=== PATIENT | female | born 1955 | race Caucasian/White ===

== ENCOUNTER 2020-01-08 11:38 | Inpatient (IN) | payer OTHER ==
[~2020-01-08] VITALS: Ht 157.5 cm; Wt 119.3 kg
[2020-01-08] MEDS ORDERED: Z GUARD REMEDY PASTE 57 GM TUBE TOP PRN (13:15)
[2020-01-08] MEDS ORDERED: DOCU100C36 PO (15:09)
[2020-01-08] MEDS ORDERED: OXYB5TAB16 PO (15:09)
[2020-01-08] MEDS ORDERED: PREG75CA PO (15:09)
[2020-01-08] MEDS ORDERED: BACL10TA PO (15:09)
[2020-01-08] MEDS ORDERED: LABE200T5 PO (15:09)
[2020-01-08] MEDS ORDERED: INSU100V7 SQ (15:09)
[2020-01-08] MEDS ORDERED: ALBU2.5V13 NEB (15:09)
[2020-01-08] MEDS ORDERED: ENOX40DI SQ (15:09)
[2020-01-08] MEDS ORDERED: ASPI81TA31 PO (15:09)
[2020-01-08] MEDS ORDERED: PARO10TA86 PO (15:09)
[2020-01-08] MEDS ORDERED: VANC1FRO2 IV (15:09)
[2020-01-08] MEDS ORDERED: LIDO30AD10 TD (15:09)
[2020-01-08] MEDS ORDERED: LINA5TAB PO (15:09)
[2020-01-08] MEDS ORDERED: CLOP75TA15 PO (15:09)
[2020-01-08] MEDS ORDERED: ATOR40TA PO (15:09)
[2020-01-08] MEDS ORDERED: IPRA0.2S6 NEB (15:09)
[2020-01-08] MEDS ORDERED: HYDR2TAB4 PO (15:09)
[2020-01-08] MEDS ORDERED: GLIP5TAB13 PO (15:09)
[2020-01-08] MEDS ORDERED: PANT40TA49 PO (15:09)
[2020-01-08] MEDS ORDERED: LOSA50TA39 PO (15:09)
[2020-01-08] MEDS ORDERED: HYDR-894 PO (15:09)
[2020-01-08] MEDS ORDERED: FURO40TA5 PO (15:09)
[2020-01-08] MEDS ORDERED: HYDR-4077 PO (15:09)
[2020-01-08] MEDS ORDERED: IPRA0.2S48 NEB (15:09)
[2020-01-08 15:17] VITALS: BP 143/42
[2020-01-08] MEDS ORDERED: INSU100V28 SUBCUT (15:17)
[2020-01-08] MEDS ORDERED: CLOT15CR27 TP (15:17)
[2020-01-08] MEDS ORDERED: TRIA80OI TP (15:17)
[2020-01-08] MEDS ORDERED: MUPI22OI2 (15:17)
[2020-01-08] MEDS ORDERED: DEXTROSE 50% 50 ML DISP.SYRIN IV PRN ×2 (16:15→21:00)
[2020-01-08] MEDS: BLOOD SUGAR DIAGNOSTIC 1 EACH STRIP VI SCH ×3 (16:59→21:00)
[2020-01-08] MEDS: INSULIN REGULAR, HUMAN 300 UNIT/3 ML VIAL SQ PRN ×2 (17:19→20:50)
[2020-01-08 19:50] VITALS: BP 122/56
[2020-01-08] MEDS: HYDROMORPHONE HCL 2 MG TABLET PO PRN (20:44)
[2020-01-08] MEDS ORDERED: ATORVASTATIN 40 MG TABLET PO SCH (21:00)
[2020-01-08] MEDS ORDERED: VANCOMYCIN IV 2,000 MG in IV DEXTROSE 5% 500 ML IV ONE (21:30)
[2020-01-08] MEDS: PANTOPRAZOLE SODIUM 40 MG TABLET.DR PO SCH (21:40)
[2020-01-08] MEDS: BACLOFEN 10 MG TABLET PO SCH (22:06)
[2020-01-08] MEDS: PREGABALIN 25 MG CAPSULE PO SCH (22:06)
[2020-01-08] MEDS ORDERED: MUPIROCIN 2% OINT 22 GM TUBE ONE (22:43)
[2020-01-08] MEDS ORDERED: INSULIN GLARGINE,HUM 300 UNITS/3 ML CARTRIDGE SQ ONE (22:43)
[2020-01-08] MEDS ORDERED: VANCOMYCIN 1000 MG VIAL ONE (22:45)
[2020-01-08] MEDS: MUPIROCIN 2% OINT 22 GM TUBE NS SCH (23:24)
[2020-01-08] MEDS: INSULIN GLARGINE,HUM 300 UNITS/3 ML CARTRIDGE SQ SCH (23:25)
[2020-01-08] MEDS ORDERED: MIRALAX 17 GM POWD.PACK PO ONE (23:30)
[2020-01-08] MEDS: hydrALAZINE HCL 25 MG TABLET PO PRN (23:45)
[2020-01-09] MEDS ORDERED: methylPREDNISolone SOD SUCC 40 MG/ML VIAL ONE (00:16)
[2020-01-09] MEDS ORDERED: MIRALAX 17 GM POWD.PACK ONE (00:16)
[2020-01-09] MEDS: HYDROCORTISONE SOD SUCCINATE 100 MG/2 ML VIAL IV SCH ×2 (00:19→08:21)
[2020-01-09] MEDS: HYDROMORPHONE HCL 2 MG TABLET PO PRN ×3 (03:09→16:41)
[2020-01-09] MEDS: ALBUTEROL SULFATE 2.5 MG/ 0.5 ML NEBU NEB PRN ×5 (03:22→23:44)
[2020-01-09] MEDS: IPRATROPIUM BROMIDE 0.5 MG/2.5 ML NEBU NEB PRN ×5 (03:22→23:44)
[2020-01-09 04:45] VITALS: BP 152/47
[2020-01-09] MEDS: glipiZIDE 5 MG TABLET PO SCH ×2 (05:44→16:26)
[2020-01-09] MEDS: BACLOFEN 10 MG TABLET PO SCH ×3 (05:44→21:07)
[2020-01-09] MEDS: LABETALOL HCL 200 MG TABLET PO SCH ×3 (05:45→21:10)
[2020-01-09] MEDS: BLOOD SUGAR DIAGNOSTIC 1 EACH STRIP VI SCH ×4 (05:55→20:48)
[2020-01-09 06:27] LABS: BASOPHILS % (AUTO) 0.4 % (0.0-2.0); HEMATOCRIT 31.9 % (31.2-41.9); HEMOGLOBIN 10.8 g/dL (10.9-14.3); LYMPHOCYTES # (AUTO) 0.9 K/uL (20.0-40.0); LYMPHOCYTES % (AUTO) 9.6 % (20.5-51.5); MEAN CORPUSCULAR HGB CONC 34 g/dL (32.3-35.6); MEAN CORPUSCULAR VOLUME 79.6 fL (75.5-95.3); MONOCYTES # (AUTO) 0.5 K/uL (2.0-10.0); MONOCYTES % (AUTO) 5.7 % (0.0-11.0); NEUTROPHILS % (AUTO) 84.3 % (38.5-71.5); PLATELET COUNT (AUTO) 340 K/uL (179-408); RED BLOOD CELL COUNT(AUTO) 4.01 MIL/uL (3.63-4.92); WHITE BLOOD COUNT (AUTO) 9.5 K/uL (3.8-11.8)
[2020-01-09 06:53] LABS: THYROID STIMULATING HORMONE 0.206 mIU/mL (0.358-3.740)
[2020-01-09 07:18] LABS: BILIRUBIN,TOTAL 0.8 mg/dL (0.2-1.0); CREATININE 0.9 mg/dL (0.6-1.3); MAGNESIUM 2.7 mg/dL (1.8-2.4); PHOSPHOROUS 2.9 mg/dL (2.5-4.9); POTASSIUM 4.5 mmol/L (3.5-5.1); TOTAL PROTEIN, SERUM 6.8 g/dL (6.4-8.2)
[2020-01-09] MEDS: INSULIN REGULAR, HUMAN 300 UNIT/3 ML VIAL SQ PRN ×4 (07:51→20:30)
[2020-01-09] MEDS: OXYBUTYNIN CHLORIDE 5 MG TABLET PO SCH ×3 (08:22→16:26)
[2020-01-09] MEDS: DOCUSATE SODIUM 100 MG CAPSULE PO SCH ×2 (08:22→16:26)
[2020-01-09] MEDS: ASPIRIN EC 81 MG TABLET.DR PO SCH (08:22)
[2020-01-09] MEDS: LOSARTAN POTASSIUM 50 MG TABLET PO SCH (08:22)
[2020-01-09] MEDS: CLOPIDOGREL 75 MG TABLET PO SCH (08:23)
[2020-01-09] MEDS: hydrALAZINE HCL 50 MG TABLET PO SCH ×2 (08:23→16:27)
[2020-01-09 08:24] VITALS: BP 163/56
[2020-01-09] MEDS: LIDOCAINE 5% PATCH TD SCH (08:24)
[2020-01-09] MEDS: PAROXETINE HCL 10 MG TABLET PO SCH (08:24)
[2020-01-09] MEDS: ENOXAPARIN SODIUM 40 MG/0.4 ML DISP.SYRIN SQ SCH (08:25)
[2020-01-09] MEDS ORDERED: LABETALOL HCL 200 MG TABLET PO SCH (09:00)
[2020-01-09] MEDS ORDERED: CLOTRIMAZOLE 1% CREAM 30 GM TUBE TP SCH (09:00)
[2020-01-09] MEDS ORDERED: FUROSEMIDE 40 MG TABLET PO SCH (09:00)
[2020-01-09] MEDS: PREGABALIN 25 MG CAPSULE PO SCH ×3 (09:19→21:07)
[2020-01-09] MEDS: MUPIROCIN 2% OINT 22 GM TUBE NS SCH ×2 (09:51→20:22)
[2020-01-09] MEDS: TRIAMCINOLONE ACET 0.025% OINT 15 GM TUBE TP SCH (09:51)
[2020-01-09] MEDS: MIRALAX 17 GM POWD.PACK PO PRN (13:32)
[2020-01-09] MEDS: ACETAMINOPHEN 325 MG TABLET PO PRN (13:32)
[2020-01-09] MEDS: VANCOMYCIN IV 1,500 MG in IV DEXTROSE 5% 500 ML IV SCH (15:11)
[2020-01-09 16:01] VITALS: BP 153/58
[2020-01-09] MEDS: CLOTRIMAZOLE 1% CREAM 30 GM TUBE TP SCH (16:28)
[2020-01-09 16:30] LABS: *BILIRUBIN,URIN NEGATIVE (NEGATIVE); *CLARITY,URINE CLEAR (CLEAR); *COLOR,URINE YELLOW (YELLOW); *KETONES,URINE NEGATIVE (NEGATIVE); *UROBILINOGEN,URINE 0.2 E.U./dl (NORMAL); LEUKOCYTE ESTERASE ,URINE NEGATIVE (NEGATIVE); NITRITE, URINE NEGATIVE (NEGATIVE); PH,URINE 6.5 (5.0-8.0)
[2020-01-09 16:31] LABS: *CREATININE,URINE 27.3 mg/dL (30-125); *URINE TOTAL PROTEIN RANDOM < 6.0 mg/dL (<150/24HR)
[2020-01-09 16:34] LABS: UGLUCOSE 2+ (NEGATIVE)
[2020-01-09 16:35] LABS: *BLOOD, URINE TRACE LYSED (NEGATIVE)
[2020-01-09 18:45] LABS: BACTERIA,URINE NONE SEEN /HPF (NONE SEEN); SQUAMOUS EPITHELIAL CELL,UR FEW /HPF (NONE SEEN); WBC,URINE 0-3 /HPF (0-3); YEAST,URINE BUDDING YEAST /HPF (NONE SEEN)
[2020-01-09] MEDS ORDERED: ALBUTEROL SULFATE 2.5 MG/ 0.5 ML NEBU NEB SCH (19:30)
[2020-01-09 20:16] VITALS: BP 138/50
[2020-01-09] MEDS: methylPREDNISolone SOD SUCC 40 MG/ML VIAL IV SCH (20:16)
[2020-01-09] MEDS: ATORVASTATIN 40 MG TABLET PO SCH (20:20)
[2020-01-09] MEDS: PANTOPRAZOLE SODIUM 40 MG TABLET.DR PO SCH (20:21)
[2020-01-09] MEDS: INSULIN GLARGINE,HUM 300 UNITS/3 ML CARTRIDGE SQ SCH (20:33)
[2020-01-09] MEDS ORDERED: ATORVASTATIN 10 MG TABLET PO SCH (21:00)
[2020-01-10] MEDS: HYDROMORPHONE HCL 2 MG TABLET PO PRN ×4 (00:25→22:28)
[2020-01-10] MEDS: BACLOFEN 10 MG TABLET PO SCH ×2 (05:41→13:46)
[2020-01-10] MEDS: PREGABALIN 25 MG CAPSULE PO SCH ×3 (05:41→21:06)
[2020-01-10 05:42] VITALS: BP 170/54
[2020-01-10] MEDS: LABETALOL HCL 200 MG TABLET PO SCH ×3 (05:42→21:07)
[2020-01-10] MEDS: BLOOD SUGAR DIAGNOSTIC 1 EACH STRIP VI SCH ×4 (06:53→21:12)
[2020-01-10 07:29] LABS: CREATININE 0.9 mg/dL (0.6-1.3); POTASSIUM 4.5 mmol/L (3.5-5.1)
[2020-01-10 08:00] VITALS: BP 164/48
[2020-01-10] MEDS: CLOPIDOGREL 75 MG TABLET PO SCH (08:12)
[2020-01-10] MEDS: DOCUSATE SODIUM 100 MG CAPSULE PO SCH ×2 (08:12→17:01)
[2020-01-10] MEDS: ASPIRIN EC 81 MG TABLET.DR PO SCH (08:12)
[2020-01-10] MEDS: glipiZIDE 5 MG TABLET PO SCH ×2 (08:12→17:01)
[2020-01-10] MEDS: OXYBUTYNIN CHLORIDE 5 MG TABLET PO SCH ×3 (08:13→17:01)
[2020-01-10] MEDS: hydrALAZINE HCL 50 MG TABLET PO SCH ×2 (08:15→17:18)
[2020-01-10] MEDS: LIDOCAINE 5% PATCH TD SCH (08:22)
[2020-01-10] MEDS: LOSARTAN POTASSIUM 50 MG TABLET PO SCH ×2 (08:22→21:08)
[2020-01-10] MEDS: VANCOMYCIN IV 1,500 MG in IV DEXTROSE 5% 500 ML IV SCH (08:24)
[2020-01-10] MEDS: methylPREDNISolone SOD SUCC 40 MG/ML VIAL IV SCH ×2 (08:24→21:08)
[2020-01-10] MEDS: ENOXAPARIN SODIUM 40 MG/0.4 ML DISP.SYRIN SQ SCH (08:25)
[2020-01-10] MEDS: INSULIN REGULAR, HUMAN 300 UNIT/3 ML VIAL SQ PRN ×4 (08:27→21:25)
[2020-01-10] MEDS: TRIAMCINOLONE ACET 0.025% OINT 15 GM TUBE TP SCH (08:28)
[2020-01-10] MEDS: MUPIROCIN 2% OINT 22 GM TUBE NS SCH ×2 (08:28→21:07)
[2020-01-10] MEDS: CLOTRIMAZOLE 1% CREAM 30 GM TUBE TP SCH ×2 (08:28→17:18)
[2020-01-10] MEDS: PAROXETINE HCL 10 MG TABLET PO SCH (08:29)
[2020-01-10] MEDS: ACETAMINOPHEN 325 MG TABLET PO PRN (10:10)
[2020-01-10] MEDS: MIRALAX 17 GM POWD.PACK PO PRN (12:36)
[2020-01-10] MEDS: ALBUTEROL SULFATE 2.5 MG/ 0.5 ML NEBU NEB PRN ×3 (13:04→23:41)
[2020-01-10] MEDS: IPRATROPIUM BROMIDE 0.5 MG/2.5 ML NEBU NEB PRN ×3 (13:04→23:41)
[2020-01-10] MEDS: hydrALAZINE HCL 25 MG TABLET PO PRN (15:58)
[2020-01-10 16:14] VITALS: BP 177/54
[2020-01-10] MEDS: MAGNESIUM HYDROXIDE 30 ML LIQUID UDC PO PRN (18:39)
[2020-01-10 20:00] VITALS: BP 134/46
[2020-01-10] MEDS: BACLOFEN 20 MG TABLET PO SCH (21:08)
[2020-01-10] MEDS: ATORVASTATIN 40 MG TABLET PO SCH (21:08)
[2020-01-10] MEDS: INSULIN GLARGINE,HUM 300 UNITS/3 ML CARTRIDGE SQ SCH (21:26)
[2020-01-11] MEDS: HYDROMORPHONE HCL 2 MG TABLET PO PRN ×5 (00:40→21:29)
[2020-01-11] MEDS: VANCOMYCIN IV 1,500 MG in IV DEXTROSE 5% 500 ML IV SCH (02:02)
[2020-01-11 04:00] VITALS: BP 158/52
[2020-01-11] MEDS: ACETAMINOPHEN 325 MG TABLET PO PRN (04:14)
[2020-01-11] MEDS: PANTOPRAZOLE SODIUM 40 MG TABLET.DR PO SCH (06:04)
[2020-01-11] MEDS: BACLOFEN 20 MG TABLET PO SCH ×3 (06:04→21:13)
[2020-01-11] MEDS: LABETALOL HCL 200 MG TABLET PO SCH ×3 (06:05→21:13)
[2020-01-11] MEDS: ALBUTEROL SULFATE 2.5 MG/ 0.5 ML NEBU NEB PRN ×3 (06:20→20:12)
[2020-01-11] MEDS: IPRATROPIUM BROMIDE 0.5 MG/2.5 ML NEBU NEB PRN ×3 (06:20→20:12)
[2020-01-11] MEDS: BLOOD SUGAR DIAGNOSTIC 1 EACH STRIP VI SCH ×4 (06:33→21:00)
[2020-01-11] MEDS: INSULIN REGULAR, HUMAN 300 UNIT/3 ML VIAL SQ PRN ×4 (07:55→21:03)
[2020-01-11] MEDS: glipiZIDE 5 MG TABLET PO SCH ×2 (07:59→16:51)
[2020-01-11 08:00] VITALS: BP 146/50
[2020-01-11] MEDS: ASPIRIN EC 81 MG TABLET.DR PO SCH (08:00)
[2020-01-11] MEDS: OXYBUTYNIN CHLORIDE 5 MG TABLET PO SCH ×3 (08:00→16:51)
[2020-01-11] MEDS: DOCUSATE SODIUM 100 MG CAPSULE PO SCH ×2 (08:00→16:51)
[2020-01-11] MEDS: CLOPIDOGREL 75 MG TABLET PO SCH (08:01)
[2020-01-11] MEDS: FUROSEMIDE 20 MG TABLET PO SCH (08:01)
[2020-01-11] MEDS: methylPREDNISolone SOD SUCC 40 MG/ML VIAL IV SCH (08:01)
[2020-01-11] MEDS: MUPIROCIN 2% OINT 22 GM TUBE NS SCH ×2 (08:02→21:03)
[2020-01-11] MEDS: hydrALAZINE HCL 50 MG TABLET PO SCH ×2 (08:04→16:52)
[2020-01-11] MEDS: LOSARTAN POTASSIUM 50 MG TABLET PO SCH ×2 (08:05→20:59)
[2020-01-11] MEDS: PREGABALIN 25 MG CAPSULE PO SCH ×3 (08:14→21:13)
[2020-01-11] MEDS: PAROXETINE HCL 10 MG TABLET PO SCH (08:14)
[2020-01-11] MEDS: ENOXAPARIN SODIUM 40 MG/0.4 ML DISP.SYRIN SQ SCH (08:16)
[2020-01-11] MEDS: LIDOCAINE 5% PATCH TD SCH (08:16)
[2020-01-11] MEDS: CLOTRIMAZOLE 1% CREAM 30 GM TUBE TP SCH ×2 (09:01→17:03)
[2020-01-11] MEDS: TRIAMCINOLONE ACET 0.025% OINT 15 GM TUBE TP SCH (09:01)
[2020-01-11 10:17] LABS: BASOPHILS % (AUTO) 0.2 % (0.0-2.0); EOSINOPHILS # (AUTO) 0.1 K/uL (0.0-0.7); EOSINOPHILS % (AUTO) 0.8 % (0.0-7.0); HEMATOCRIT 32.1 % (31.2-41.9); HEMOGLOBIN 10.3 g/dL (10.9-14.3); LYMPHOCYTES # (AUTO) 3.5 K/uL (20.0-40.0); LYMPHOCYTES % (AUTO) 23.4 % (20.5-51.5); MEAN CORPUSCULAR HEMOGLOBIN 26.1 uug (24.7-32.8); MEAN CORPUSCULAR HGB CONC 32 g/dL (32.3-35.6); MEAN CORPUSCULAR VOLUME 81.1 fL (75.5-95.3); MONOCYTES # (AUTO) 1.1 K/uL (2.0-10.0); MONOCYTES % (AUTO) 7.4 % (0.0-11.0); NEUTROPHILS # (AUTO) 10.2 K/uL (1.8-8.9); NEUTROPHILS % (AUTO) 68.2 % (38.5-71.5); PLATELET COUNT (AUTO) 339 K/uL (179-408); RED BLOOD CELL COUNT(AUTO) 3.96 MIL/uL (3.63-4.92)
[2020-01-11 10:29] LABS: CREATININE 0.9 mg/dL (0.6-1.3); POTASSIUM 4.5 mmol/L (3.5-5.1)
[2020-01-11 16:00] VITALS: BP 164/55
[2020-01-11] MEDS: MAGNESIUM HYDROXIDE 30 ML LIQUID UDC PO PRN (17:47)
[2020-01-11] MEDS: MIRALAX 17 GM POWD.PACK PO PRN (17:47)
[2020-01-11 17:59] VITALS: BP 156/58
[2020-01-11 20:00] VITALS: BP 133/44
[2020-01-11] MEDS: ATORVASTATIN 40 MG TABLET PO SCH (20:59)
[2020-01-11] MEDS ORDERED: VANCOMYCIN IV 1,500 MG in IV DEXTROSE 5% 500 ML IV SCH (21:00)
[2020-01-12] MEDS: ALBUTEROL SULFATE 2.5 MG/ 0.5 ML NEBU NEB PRN ×4 (00:51→20:53)
[2020-01-12] MEDS: IPRATROPIUM BROMIDE 0.5 MG/2.5 ML NEBU NEB PRN ×4 (00:51→20:53)
[2020-01-12] MEDS: HYDROMORPHONE HCL 2 MG TABLET PO PRN ×4 (02:15→22:38)
[2020-01-12 04:00] VITALS: BP 149/47
[2020-01-12] MEDS: ACETAMINOPHEN 325 MG TABLET PO PRN ×2 (05:50→11:58)
[2020-01-12 06:12] LABS: BASOPHILS # (AUTO) 0.1 K/uL (0.0-8.0); BASOPHILS % (AUTO) 0.8 % (0.0-2.0); EOSINOPHILS # (AUTO) 0.3 K/uL (0.0-0.7); EOSINOPHILS % (AUTO) 1.9 % (0.0-7.0); HEMATOCRIT 30.1 % (31.2-41.9); HEMOGLOBIN 9.7 g/dL (10.9-14.3); LYMPHOCYTES # (AUTO) 5.8 K/uL (20.0-40.0); LYMPHOCYTES % (AUTO) 36.3 % (20.5-51.5); MEAN CORPUSCULAR HEMOGLOBIN 26.1 uug (24.7-32.8); MEAN CORPUSCULAR HGB CONC 32 g/dL (32.3-35.6); MEAN CORPUSCULAR VOLUME 80.8 fL (75.5-95.3); MONOCYTES # (AUTO) 1.3 K/uL (2.0-10.0); MONOCYTES % (AUTO) 8.1 % (0.0-11.0); NEUTROPHILS # (AUTO) 8.5 K/uL (1.8-8.9); NEUTROPHILS % (AUTO) 52.9 % (38.5-71.5); PLATELET COUNT (AUTO) 324 K/uL (179-408); RED BLOOD CELL COUNT(AUTO) 3.73 MIL/uL (3.63-4.92)
[2020-01-12] MEDS: PANTOPRAZOLE SODIUM 40 MG TABLET.DR PO SCH (06:17)
[2020-01-12] MEDS: LABETALOL HCL 200 MG TABLET PO SCH ×3 (06:17→21:04)
[2020-01-12] MEDS: PREGABALIN 25 MG CAPSULE PO SCH ×3 (06:17→21:04)
[2020-01-12] MEDS: BACLOFEN 20 MG TABLET PO SCH ×3 (06:17→21:04)
[2020-01-12 06:21] LABS: CREATININE 0.8 mg/dL (0.6-1.3); POTASSIUM 4.4 mmol/L (3.5-5.1)
[2020-01-12] MEDS: BLOOD SUGAR DIAGNOSTIC 1 EACH STRIP VI SCH ×4 (06:34→20:57)
[2020-01-12] MEDS: glipiZIDE 5 MG TABLET PO SCH ×2 (06:37→16:02)
[2020-01-12 07:30] VITALS: BP 120/45
[2020-01-12] MEDS: CLOPIDOGREL 75 MG TABLET PO SCH (08:40)
[2020-01-12] MEDS: DOCUSATE SODIUM 100 MG CAPSULE PO SCH ×2 (08:40→15:59)
[2020-01-12] MEDS: FUROSEMIDE 20 MG TABLET PO SCH (08:40)
[2020-01-12] MEDS: ASPIRIN EC 81 MG TABLET.DR PO SCH (08:40)
[2020-01-12] MEDS: OXYBUTYNIN CHLORIDE 5 MG TABLET PO SCH ×3 (08:41→16:04)
[2020-01-12] MEDS: PAROXETINE HCL 10 MG TABLET PO SCH (08:41)
[2020-01-12] MEDS: LOSARTAN POTASSIUM 50 MG TABLET PO SCH ×2 (08:41→20:57)
[2020-01-12] MEDS: hydrALAZINE HCL 50 MG TABLET PO SCH (08:42)
[2020-01-12] MEDS: INSULIN REGULAR, HUMAN 300 UNIT/3 ML VIAL SQ PRN ×4 (08:43→21:07)
[2020-01-12] MEDS ORDERED: FLUTICASONE/SALMETEROL 250/50 INHALER INH SCH (09:00)
[2020-01-12] MEDS: FLUTICASONE/VILANTEROL 1 EACH BLST.W.DEV INH SCH (09:48)
[2020-01-12] MEDS: LIDOCAINE 5% PATCH TD SCH (09:49)
[2020-01-12] MEDS: LORATADINE 10 MG TABLET PO SCH (09:49)
[2020-01-12] MEDS: ENOXAPARIN SODIUM 40 MG/0.4 ML DISP.SYRIN SQ SCH (09:53)
[2020-01-12] MEDS: MUPIROCIN 2% OINT 22 GM TUBE NS SCH (09:55)
[2020-01-12] MEDS: TRIAMCINOLONE ACET 0.025% OINT 15 GM TUBE TP SCH (09:56)
[2020-01-12] MEDS: CLOTRIMAZOLE 1% CREAM 30 GM TUBE TP SCH ×2 (09:57→16:05)
[2020-01-12] MEDS ORDERED: FUROSEMIDE 20 MG TABLET PO ONE (11:45)
[2020-01-12] MEDS: MIRALAX 17 GM POWD.PACK PO PRN (11:58)
[2020-01-12] MEDS: predniSONE 20 MG TABLET PO SCH (12:07)
[2020-01-12 15:52] VITALS: BP 101/33
[2020-01-12] MEDS ORDERED: hydrALAZINE HCL 50 MG TABLET PO SCH (17:00)
[2020-01-12] MEDS: GUAIFENESIN/DEXTROMETHORPHAN 5 ML UDC PO PRN (18:14)
[2020-01-12 20:00] VITALS: BP 136/41
[2020-01-12] MEDS: ATORVASTATIN 40 MG TABLET PO SCH (20:57)
[2020-01-12] MEDS ORDERED: INSULIN GLARGINE,HUM 300 UNITS/3 ML CARTRIDGE SQ SCH (21:00)
[2020-01-12] MEDS: INSULIN GLARGINE,HUM 300 UNITS/3 ML CARTRIDGE SQ SCH (21:29)
[2020-01-12] MEDS ORDERED: VANCOMYCIN IV 1,500 MG in IV DEXTROSE 5% 500 ML IV SCH (22:00)
[2020-01-13] MEDS: ALBUTEROL SULFATE 2.5 MG/ 0.5 ML NEBU NEB PRN ×4 (01:32→22:38)
[2020-01-13] MEDS: IPRATROPIUM BROMIDE 0.5 MG/2.5 ML NEBU NEB PRN ×4 (01:32→22:38)
[2020-01-13] MEDS: GUAIFENESIN/DEXTROMETHORPHAN 5 ML UDC PO PRN ×2 (03:06→18:07)
[2020-01-13 06:05] LABS: BASOPHILS % (AUTO) 0.3 % (0.0-2.0); EOSINOPHILS # (AUTO) 0.2 K/uL (0.0-0.7); EOSINOPHILS % (AUTO) 1.6 % (0.0-7.0); HEMATOCRIT 29.3 % (31.2-41.9); HEMOGLOBIN 9.7 g/dL (10.9-14.3); LYMPHOCYTES # (AUTO) 4.1 K/uL (20.0-40.0); LYMPHOCYTES % (AUTO) 28.8 % (20.5-51.5); MEAN CORPUSCULAR HEMOGLOBIN 26.6 uug (24.7-32.8); MEAN CORPUSCULAR HGB CONC 33 g/dL (32.3-35.6); MEAN CORPUSCULAR VOLUME 80.7 fL (75.5-95.3); MONOCYTES # (AUTO) 1.2 K/uL (2.0-10.0); MONOCYTES % (AUTO) 8.7 % (0.0-11.0); NEUTROPHILS # (AUTO) 8.5 K/uL (1.8-8.9); NEUTROPHILS % (AUTO) 60.6 % (38.5-71.5); PLATELET COUNT (AUTO) 330 K/uL (179-408); RED BLOOD CELL COUNT(AUTO) 3.63 MIL/uL (3.63-4.92); WHITE BLOOD COUNT (AUTO) 14.1 K/uL (3.8-11.8)
[2020-01-13 06:17] LABS: MAGNESIUM 2.6 mg/dL (1.8-2.4); PHOSPHOROUS 4.3 mg/dL (2.5-4.9); POTASSIUM 4.8 mmol/L (3.5-5.1)
[2020-01-13] MEDS: BACLOFEN 20 MG TABLET PO SCH ×3 (06:18→21:46)
[2020-01-13] MEDS: glipiZIDE 5 MG TABLET PO SCH ×2 (06:18→17:14)
[2020-01-13] MEDS: PANTOPRAZOLE SODIUM 40 MG TABLET.DR PO SCH (06:18)
[2020-01-13] MEDS: LABETALOL HCL 200 MG TABLET PO SCH ×3 (06:18→21:47)
[2020-01-13] MEDS: BLOOD SUGAR DIAGNOSTIC 1 EACH STRIP VI SCH ×4 (06:24→20:32)
[2020-01-13] MEDS: MAGNESIUM HYDROXIDE 30 ML LIQUID UDC PO PRN (06:51)
[2020-01-13 07:30] VITALS: BP 103/31
[2020-01-13] MEDS: FUROSEMIDE 20 MG TABLET PO SCH (08:57)
[2020-01-13] MEDS: FLUTICASONE/VILANTEROL 1 EACH BLST.W.DEV INH SCH (08:57)
[2020-01-13] MEDS: DOCUSATE SODIUM 100 MG CAPSULE PO SCH ×2 (08:57→17:14)
[2020-01-13] MEDS: OXYBUTYNIN CHLORIDE 5 MG TABLET PO SCH ×3 (08:58→17:14)
[2020-01-13] MEDS: LORATADINE 10 MG TABLET PO SCH (08:58)
[2020-01-13] MEDS: PAROXETINE HCL 10 MG TABLET PO SCH (08:58)
[2020-01-13] MEDS: LOSARTAN POTASSIUM 50 MG TABLET PO SCH ×2 (08:58→20:24)
[2020-01-13] MEDS: CLOPIDOGREL 75 MG TABLET PO SCH (08:58)
[2020-01-13] MEDS: LIDOCAINE 5% PATCH TD SCH (08:59)
[2020-01-13] MEDS: ASPIRIN EC 81 MG TABLET.DR PO SCH (08:59)
[2020-01-13] MEDS: ENOXAPARIN SODIUM 40 MG/0.4 ML DISP.SYRIN SQ SCH (09:00)
[2020-01-13] MEDS: Z GUARD REMEDY PASTE 57 GM TUBE TOP SCH (09:10)
[2020-01-13] MEDS: CLOTRIMAZOLE 1% CREAM 30 GM TUBE TP SCH ×2 (09:11→17:14)
[2020-01-13] MEDS: TRIAMCINOLONE ACET 0.025% OINT 15 GM TUBE TP SCH (09:12)
[2020-01-13] MEDS: INSULIN REGULAR, HUMAN 300 UNIT/3 ML VIAL SQ PRN ×4 (09:27→20:38)
[2020-01-13] MEDS: PREGABALIN 25 MG CAPSULE PO SCH ×3 (09:29→21:46)
[2020-01-13] MEDS: HYDROMORPHONE HCL 2 MG TABLET PO PRN ×2 (09:38→20:59)
[2020-01-13] MEDS: predniSONE 20 MG TABLET PO SCH (12:17)
[2020-01-13] MEDS: MIRALAX 17 GM POWD.PACK PO PRN (14:23)
[2020-01-13 16:00] VITALS: BP 119/42
[2020-01-13] MEDS: ACETAMINOPHEN 325 MG TABLET PO PRN (18:49)
[2020-01-13 20:21] VITALS: BP 149/42
[2020-01-13] MEDS: ATORVASTATIN 40 MG TABLET PO SCH (20:23)
[2020-01-13] MEDS ORDERED: INSULIN GLARGINE,HUM 300 UNITS/3 ML CARTRIDGE SQ ONE (20:56)
[2020-01-13] MEDS: INSULIN GLARGINE,HUM 300 UNITS/3 ML CARTRIDGE SQ SCH (21:04)
[2020-01-14] MEDS: GUAIFENESIN/DEXTROMETHORPHAN 5 ML UDC PO PRN ×3 (00:01→12:19)
[2020-01-14] MEDS: HYDROMORPHONE HCL 2 MG TABLET PO PRN ×2 (03:38→09:40)
[2020-01-14 05:10] VITALS: BP 141/44
[2020-01-14] MEDS: PREGABALIN 25 MG CAPSULE PO SCH ×3 (05:47→21:15)
[2020-01-14] MEDS: BACLOFEN 20 MG TABLET PO SCH ×3 (05:49→21:18)
[2020-01-14] MEDS: glipiZIDE 5 MG TABLET PO SCH ×2 (05:54→16:55)
[2020-01-14] MEDS: PANTOPRAZOLE SODIUM 40 MG TABLET.DR PO SCH (05:54)
[2020-01-14] MEDS: LABETALOL HCL 200 MG TABLET PO SCH ×3 (05:54→21:16)
[2020-01-14] MEDS: BLOOD SUGAR DIAGNOSTIC 1 EACH STRIP VI SCH ×4 (06:05→20:17)
[2020-01-14 06:14] LABS: CREATININE 0.8 mg/dL (0.6-1.3); POTASSIUM 4.7 mmol/L (3.5-5.1)
[2020-01-14 08:58] VITALS: BP 126/46
[2020-01-14] MEDS: ASPIRIN EC 81 MG TABLET.DR PO SCH (09:13)
[2020-01-14] MEDS: DOCUSATE SODIUM 100 MG CAPSULE PO SCH ×2 (09:13→16:55)
[2020-01-14] MEDS: CLOPIDOGREL 75 MG TABLET PO SCH (09:14)
[2020-01-14] MEDS: LOSARTAN POTASSIUM 50 MG TABLET PO SCH ×2 (09:14→20:24)
[2020-01-14] MEDS: LORATADINE 10 MG TABLET PO SCH (09:14)
[2020-01-14] MEDS: FUROSEMIDE 20 MG TABLET PO SCH (09:14)
[2020-01-14] MEDS: FLUTICASONE/VILANTEROL 1 EACH BLST.W.DEV INH SCH (09:15)
[2020-01-14] MEDS: OXYBUTYNIN CHLORIDE 5 MG TABLET PO SCH ×3 (09:15→16:55)
[2020-01-14] MEDS: PAROXETINE HCL 10 MG TABLET PO SCH (09:15)
[2020-01-14] MEDS: ENOXAPARIN SODIUM 40 MG/0.4 ML DISP.SYRIN SQ SCH (09:17)
[2020-01-14] MEDS: LIDOCAINE 5% PATCH TD SCH (09:17)
[2020-01-14] MEDS: TRIAMCINOLONE ACET 0.025% OINT 15 GM TUBE TP SCH (09:18)
[2020-01-14] MEDS: Z GUARD REMEDY PASTE 57 GM TUBE TOP SCH (09:18)
[2020-01-14] MEDS: INSULIN REGULAR, HUMAN 300 UNIT/3 ML VIAL SQ PRN ×3 (11:31→20:21)
[2020-01-14] MEDS: predniSONE 20 MG TABLET PO SCH (12:19)
[2020-01-14] MEDS: IPRATROPIUM BROMIDE 0.5 MG/2.5 ML NEBU NEB SCH ×2 (13:40→19:47)
[2020-01-14] MEDS: ALBUTEROL SULFATE 2.5 MG/3 ML NEBU NEB SCH ×2 (13:40→19:47)
[2020-01-14] MEDS: MAGNESIUM HYDROXIDE 30 ML LIQUID UDC PO PRN (14:22)
[2020-01-14] MEDS: MIRALAX 17 GM POWD.PACK PO PRN (14:22)
[2020-01-14 15:34] VITALS: BP 118/47
[2020-01-14] MEDS: ALBUTEROL SULFATE 2.5 MG/ 0.5 ML NEBU NEB PRN (19:47)
[2020-01-14] MEDS: ATORVASTATIN 40 MG TABLET PO SCH (20:12)
[2020-01-14] MEDS: INSULIN GLARGINE,HUM 300 UNITS/3 ML CARTRIDGE SQ SCH (20:22)
[2020-01-14 21:30] VITALS: BP 167/57
[2020-01-14 22:42] VITALS: BP 137/63
[2020-01-15] MEDS: HYDROMORPHONE HCL 2 MG TABLET PO PRN ×4 (00:46→21:48)
[2020-01-15] MEDS: GUAIFENESIN/DEXTROMETHORPHAN 5 ML UDC PO PRN ×4 (00:47→18:43)
[2020-01-15] MEDS: hydrALAZINE HCL 25 MG TABLET PO PRN (04:35)
[2020-01-15 04:51] VITALS: BP 155/47
[2020-01-15 06:17] LABS: BASOPHILS # (AUTO) 0.2 K/uL (0.0-8.0); BASOPHILS % (AUTO) 1.2 % (0.0-2.0); EOSINOPHILS # (AUTO) 0.1 K/uL (0.0-0.7); EOSINOPHILS % (AUTO) 0.9 % (0.0-7.0); HEMATOCRIT 29.1 % (31.2-41.9); HEMOGLOBIN 9.7 g/dL (10.9-14.3); LYMPHOCYTES # (AUTO) 3.2 K/uL (20.0-40.0); LYMPHOCYTES % (AUTO) 26.4 % (20.5-51.5); MEAN CORPUSCULAR HEMOGLOBIN 26.9 uug (24.7-32.8); MEAN CORPUSCULAR HGB CONC 33 g/dL (32.3-35.6); MEAN CORPUSCULAR VOLUME 80.7 fL (75.5-95.3); MONOCYTES # (AUTO) 1.1 K/uL (2.0-10.0); NEUTROPHILS # (AUTO) 7.7 K/uL (1.8-8.9); NEUTROPHILS % (AUTO) 62.5 % (38.5-71.5); PLATELET COUNT (AUTO) 318 K/uL (179-408); RED BLOOD CELL COUNT(AUTO) 3.61 MIL/uL (3.63-4.92); WHITE BLOOD COUNT (AUTO) 12.3 K/uL (3.8-11.8)
[2020-01-15 06:41] LABS: CREATININE 0.8 mg/dL (0.6-1.3); MAGNESIUM 2.5 mg/dL (1.8-2.4); PHOSPHOROUS 3.7 mg/dL (2.5-4.9); POTASSIUM 3.9 mmol/L (3.5-5.1)
[2020-01-15] MEDS: BACLOFEN 20 MG TABLET PO SCH ×3 (06:55→21:01)
[2020-01-15] MEDS: PANTOPRAZOLE SODIUM 40 MG TABLET.DR PO SCH (06:57)
[2020-01-15] MEDS: LABETALOL HCL 200 MG TABLET PO SCH ×3 (06:57→21:01)
[2020-01-15] MEDS: BLOOD SUGAR DIAGNOSTIC 1 EACH STRIP VI SCH ×4 (06:58→21:02)
[2020-01-15] MEDS: glipiZIDE 5 MG TABLET PO SCH ×2 (06:58→17:11)
[2020-01-15] MEDS: INSULIN REGULAR, HUMAN 300 UNIT/3 ML VIAL SQ PRN ×4 (08:14→21:03)
[2020-01-15 08:16] VITALS: BP 139/40
[2020-01-15] MEDS: ALBUTEROL SULFATE 2.5 MG/3 ML NEBU NEB SCH ×3 (08:21→20:04)
[2020-01-15] MEDS: IPRATROPIUM BROMIDE 0.5 MG/2.5 ML NEBU NEB SCH ×3 (08:21→19:47)
[2020-01-15] MEDS: ENOXAPARIN SODIUM 40 MG/0.4 ML DISP.SYRIN SQ SCH (08:22)
[2020-01-15] MEDS: FLUTICASONE/VILANTEROL 1 EACH BLST.W.DEV INH SCH (09:00)
[2020-01-15] MEDS: LOSARTAN POTASSIUM 50 MG TABLET PO SCH ×2 (09:00→21:01)
[2020-01-15] MEDS: DOCUSATE SODIUM 100 MG CAPSULE PO SCH ×2 (09:10→17:11)
[2020-01-15] MEDS: ASPIRIN EC 81 MG TABLET.DR PO SCH (09:10)
[2020-01-15] MEDS: LORATADINE 10 MG TABLET PO SCH (09:10)
[2020-01-15] MEDS: CLOPIDOGREL 75 MG TABLET PO SCH (09:10)
[2020-01-15] MEDS: PAROXETINE HCL 10 MG TABLET PO SCH (09:10)
[2020-01-15] MEDS: FUROSEMIDE 20 MG TABLET PO SCH (09:10)
[2020-01-15] MEDS: OXYBUTYNIN CHLORIDE 5 MG TABLET PO SCH ×3 (09:10→17:11)
[2020-01-15] MEDS: LIDOCAINE 5% PATCH TD SCH (09:11)
[2020-01-15] MEDS: TRIAMCINOLONE ACET 0.025% OINT 15 GM TUBE TP SCH (09:16)
[2020-01-15] MEDS: Z GUARD REMEDY PASTE 57 GM TUBE TOP SCH (09:17)
[2020-01-15] MEDS: PREGABALIN 25 MG CAPSULE PO SCH ×3 (09:30→21:01)
[2020-01-15] MEDS: predniSONE 5 MG TABLET PO SCH (12:38)
[2020-01-15] MEDS: ACETAMINOPHEN 325 MG TABLET PO PRN (12:44)
[2020-01-15] MEDS: MIRALAX 17 GM POWD.PACK PO PRN (17:11)
[2020-01-15] MEDS: ALBUTEROL SULFATE 2.5 MG/ 0.5 ML NEBU NEB PRN ×2 (19:47→19:52)
[2020-01-15] MEDS: ATORVASTATIN 40 MG TABLET PO SCH (21:01)
[2020-01-15] MEDS: INSULIN GLARGINE,HUM 300 UNITS/3 ML CARTRIDGE SQ SCH (21:04)
[2020-01-15 21:19] VITALS: BP 160/65
[2020-01-16] MEDS: GUAIFENESIN/DEXTROMETHORPHAN 5 ML UDC PO PRN ×4 (00:57→19:21)
[2020-01-16] MEDS: IPRATROPIUM BROMIDE 0.5 MG/2.5 ML NEBU NEB SCH ×4 (01:21→19:25)
[2020-01-16] MEDS: HYDROMORPHONE HCL 2 MG TABLET PO PRN ×4 (03:48→22:31)
[2020-01-16 04:58] VITALS: BP 136/53
[2020-01-16] MEDS: PREGABALIN 25 MG CAPSULE PO SCH ×3 (06:04→21:16)
[2020-01-16] MEDS: PANTOPRAZOLE SODIUM 40 MG TABLET.DR PO SCH (06:04)
[2020-01-16] MEDS: BACLOFEN 20 MG TABLET PO SCH ×3 (06:04→21:16)
[2020-01-16 06:05] LABS: BASOPHILS # (AUTO) 0.1 K/uL (0.0-8.0); BASOPHILS % (AUTO) 0.7 % (0.0-2.0); EOSINOPHILS # (AUTO) 0.1 K/uL (0.0-0.7); HEMATOCRIT 27.3 % (31.2-41.9); HEMOGLOBIN 8.9 g/dL (10.9-14.3); LYMPHOCYTES # (AUTO) 3.6 K/uL (20.0-40.0); LYMPHOCYTES % (AUTO) 28.5 % (20.5-51.5); MEAN CORPUSCULAR HEMOGLOBIN 26.3 uug (24.7-32.8); MEAN CORPUSCULAR HGB CONC 33 g/dL (32.3-35.6); MEAN CORPUSCULAR VOLUME 80.3 fL (75.5-95.3); MONOCYTES # (AUTO) 1.2 K/uL (2.0-10.0); MONOCYTES % (AUTO) 9.8 % (0.0-11.0); NEUTROPHILS # (AUTO) 7.5 K/uL (1.8-8.9); PLATELET COUNT (AUTO) 320 K/uL (179-408); RED BLOOD CELL COUNT(AUTO) 3.39 MIL/uL (3.63-4.92); WHITE BLOOD COUNT (AUTO) 12.6 K/uL (3.8-11.8)
[2020-01-16] MEDS: LABETALOL HCL 200 MG TABLET PO SCH ×3 (06:05→21:16)
[2020-01-16 06:36] LABS: CREATININE 0.7 mg/dL (0.6-1.3); MAGNESIUM 2.1 mg/dL (1.8-2.4); POTASSIUM 3.8 mmol/L (3.5-5.1)
[2020-01-16] MEDS: BLOOD SUGAR DIAGNOSTIC 1 EACH STRIP VI SCH ×4 (06:55→20:46)
[2020-01-16] MEDS: ALBUTEROL SULFATE 2.5 MG/3 ML NEBU NEB SCH ×3 (07:46→19:30)
[2020-01-16] MEDS: FUROSEMIDE 20 MG TABLET PO SCH (08:08)
[2020-01-16] MEDS: LIDOCAINE 5% PATCH TD SCH (08:08)
[2020-01-16] MEDS: PAROXETINE HCL 10 MG TABLET PO SCH (08:10)
[2020-01-16] MEDS: CLOPIDOGREL 75 MG TABLET PO SCH (08:11)
[2020-01-16] MEDS: OXYBUTYNIN CHLORIDE 5 MG TABLET PO SCH (08:11)
[2020-01-16] MEDS: ASPIRIN EC 81 MG TABLET.DR PO SCH (08:12)
[2020-01-16] MEDS: LORATADINE 10 MG TABLET PO SCH (08:12)
[2020-01-16] MEDS: DOCUSATE SODIUM 100 MG CAPSULE PO SCH ×2 (08:13→17:08)
[2020-01-16] MEDS: LOSARTAN POTASSIUM 50 MG TABLET PO SCH ×2 (08:13→20:41)
[2020-01-16] MEDS: FLUTICASONE/VILANTEROL 1 EACH BLST.W.DEV INH SCH (08:15)
[2020-01-16] MEDS: glipiZIDE 5 MG TABLET PO SCH ×2 (08:17→17:05)
[2020-01-16] MEDS: TRIAMCINOLONE ACET 0.025% OINT 15 GM TUBE TP SCH (08:18)
[2020-01-16] MEDS: Z GUARD REMEDY PASTE 57 GM TUBE TOP SCH (08:18)
[2020-01-16] MEDS: ACETAMINOPHEN 325 MG TABLET PO PRN (08:23)
[2020-01-16 08:24] VITALS: BP 146/66
[2020-01-16] MEDS: predniSONE 5 MG TABLET PO SCH (11:55)
[2020-01-16] MEDS: MIRALAX 17 GM POWD.PACK PO PRN (11:55)
[2020-01-16] MEDS: INSULIN REGULAR, HUMAN 300 UNIT/3 ML VIAL SQ PRN ×3 (11:58→20:48)
[2020-01-16 15:34] VITALS: BP 150/55
[2020-01-16] MEDS: ALBUTEROL SULFATE 2.5 MG/ 0.5 ML NEBU NEB PRN (19:25)
[2020-01-16 20:18] VITALS: BP 141/49
[2020-01-16] MEDS: ATORVASTATIN 40 MG TABLET PO SCH (20:40)
[2020-01-16] MEDS: TOLTERODINE 2 MG TABLET PO SCH (20:41)
[2020-01-16] MEDS: INSULIN GLARGINE,HUM 300 UNITS/3 ML CARTRIDGE SQ SCH (20:48)
[2020-01-17] MEDS: IPRATROPIUM BROMIDE 0.5 MG/2.5 ML NEBU NEB PRN (00:30)
[2020-01-17] MEDS: ALBUTEROL SULFATE 2.5 MG/ 0.5 ML NEBU NEB PRN (00:31)
[2020-01-17] MEDS: ACETAMINOPHEN 325 MG TABLET PO PRN ×2 (02:38→11:51)
[2020-01-17] MEDS: GUAIFENESIN/DEXTROMETHORPHAN 5 ML UDC PO PRN ×3 (02:38→16:42)
[2020-01-17 05:10] VITALS: BP 126/44
[2020-01-17] MEDS: PANTOPRAZOLE SODIUM 40 MG TABLET.DR PO SCH (06:24)
[2020-01-17] MEDS: PREGABALIN 25 MG CAPSULE PO SCH ×3 (06:24→21:42)
[2020-01-17] MEDS: LABETALOL HCL 200 MG TABLET PO SCH ×3 (06:25→21:43)
[2020-01-17] MEDS: glipiZIDE 5 MG TABLET PO SCH ×2 (06:26→16:34)
[2020-01-17] MEDS: BACLOFEN 20 MG TABLET PO SCH ×3 (06:26→21:42)
[2020-01-17] MEDS: BLOOD SUGAR DIAGNOSTIC 1 EACH STRIP VI SCH ×4 (06:33→21:47)
[2020-01-17 07:34] LABS: BASOPHILS # (AUTO) 0.1 K/uL (0.0-8.0); BASOPHILS % (AUTO) 0.5 % (0.0-2.0); EOSINOPHILS # (AUTO) 0.1 K/uL (0.0-0.7); EOSINOPHILS % (AUTO) 1.1 % (0.0-7.0); HEMOGLOBIN 8.9 g/dL (10.9-14.3); LYMPHOCYTES # (AUTO) 4.3 K/uL (20.0-40.0); LYMPHOCYTES % (AUTO) 35.1 % (20.5-51.5); MEAN CORPUSCULAR HEMOGLOBIN 26.3 uug (24.7-32.8); MEAN CORPUSCULAR HGB CONC 33 g/dL (32.3-35.6); MEAN CORPUSCULAR VOLUME 79.7 fL (75.5-95.3); MONOCYTES # (AUTO) 1.3 K/uL (2.0-10.0); MONOCYTES % (AUTO) 10.8 % (0.0-11.0); NEUTROPHILS # (AUTO) 6.4 K/uL (1.8-8.9); NEUTROPHILS % (AUTO) 52.5 % (38.5-71.5); PLATELET COUNT (AUTO) 314 K/uL (179-408); RED BLOOD CELL COUNT(AUTO) 3.39 MIL/uL (3.63-4.92); WHITE BLOOD COUNT (AUTO) 12.3 K/uL (3.8-11.8)
[2020-01-17 07:40] LABS: CREATININE 0.9 mg/dL (0.6-1.3); MAGNESIUM 2.3 mg/dL (1.8-2.4); PHOSPHOROUS 3.2 mg/dL (2.5-4.9); POTASSIUM 3.8 mmol/L (3.5-5.1)
[2020-01-17] MEDS: IPRATROPIUM BROMIDE 0.5 MG/2.5 ML NEBU NEB SCH ×3 (07:47→19:05)
[2020-01-17] MEDS: ALBUTEROL SULFATE 2.5 MG/3 ML NEBU NEB SCH ×3 (07:47→19:05)
[2020-01-17 07:56] VITALS: BP 159/47
[2020-01-17] MEDS: FUROSEMIDE 20 MG TABLET PO SCH (08:56)
[2020-01-17] MEDS: LOSARTAN POTASSIUM 50 MG TABLET PO SCH ×2 (08:56→21:44)
[2020-01-17] MEDS: PAROXETINE HCL 10 MG TABLET PO SCH (08:56)
[2020-01-17] MEDS: DOCUSATE SODIUM 100 MG CAPSULE PO SCH ×2 (08:56→16:48)
[2020-01-17] MEDS: CLOPIDOGREL 75 MG TABLET PO SCH (08:57)
[2020-01-17] MEDS: LIDOCAINE 5% PATCH TD SCH (08:57)
[2020-01-17] MEDS: TOLTERODINE 2 MG TABLET PO SCH ×2 (08:58→21:43)
[2020-01-17] MEDS: ASPIRIN EC 81 MG TABLET.DR PO SCH (08:59)
[2020-01-17] MEDS: MAGNESIUM HYDROXIDE 30 ML LIQUID UDC PO PRN (08:59)
[2020-01-17] MEDS: LORATADINE 10 MG TABLET PO SCH (08:59)
[2020-01-17] MEDS: TRIAMCINOLONE ACET 0.025% OINT 15 GM TUBE TP SCH (09:00)
[2020-01-17] MEDS: Z GUARD REMEDY PASTE 57 GM TUBE TOP SCH (09:00)
[2020-01-17] MEDS: FLUTICASONE/VILANTEROL 1 EACH BLST.W.DEV INH SCH (09:00)
[2020-01-17] MEDS: HYDROMORPHONE HCL 2 MG TABLET PO PRN ×3 (09:10→21:43)
[2020-01-17] MEDS: predniSONE 5 MG TABLET PO SCH (11:37)
[2020-01-17] MEDS: BENZONATATE 100 MG CAPSULE PO PRN (15:12)
[2020-01-17] MEDS: MIRALAX 17 GM POWD.PACK PO PRN (15:14)
[2020-01-17 15:26] VITALS: BP 145/48
[2020-01-17] MEDS: INSULIN REGULAR, HUMAN 300 UNIT/3 ML VIAL SQ PRN ×2 (16:36→23:27)
[2020-01-17 18:31] LABS: *BILIRUBIN,URIN NEGATIVE (NEGATIVE); *BLOOD, URINE NEGATIVE (NEGATIVE); *CLARITY,URINE CLEAR (CLEAR); *COLOR,URINE YELLOW (YELLOW); *KETONES,URINE NEGATIVE (NEGATIVE); *UROBILINOGEN,URINE 0.2 E.U./dl (NORMAL); LEUKOCYTE ESTERASE ,URINE NEGATIVE (NEGATIVE); NITRITE, URINE NEGATIVE (NEGATIVE)
[2020-01-17 18:35] LABS: *URINE TOTAL PROTEIN RANDOM < 6.0 mg/dL (<150/24HR)
[2020-01-17 18:41] LABS: UGLUCOSE 1+ (NEGATIVE)
[2020-01-17] MEDS: ATORVASTATIN 40 MG TABLET PO SCH (21:44)
[2020-01-17 21:47] VITALS: BP 136/52
[2020-01-17] MEDS: INSULIN GLARGINE,HUM 300 UNITS/3 ML CARTRIDGE SQ SCH (23:26)
[2020-01-18] MEDS: GUAIFENESIN/DEXTROMETHORPHAN 5 ML UDC PO PRN ×3 (00:33→18:25)
[2020-01-18] MEDS: ACETAMINOPHEN 325 MG TABLET PO PRN (00:33)
[2020-01-18] MEDS: ALBUTEROL SULFATE 2.5 MG/ 0.5 ML NEBU NEB PRN (01:15)
[2020-01-18 04:44] VITALS: BP 124/45
[2020-01-18] MEDS: LABETALOL HCL 200 MG TABLET PO SCH ×3 (06:00→21:01)
[2020-01-18] MEDS: BACLOFEN 20 MG TABLET PO SCH ×3 (06:00→21:01)
[2020-01-18 06:04] LABS: BASOPHILS # (AUTO) 0.1 K/uL (0.0-8.0); BASOPHILS % (AUTO) 0.4 % (0.0-2.0); EOSINOPHILS # (AUTO) 0.1 K/uL (0.0-0.7); EOSINOPHILS % (AUTO) 1.1 % (0.0-7.0); HEMATOCRIT 26.6 % (31.2-41.9); HEMOGLOBIN 8.8 g/dL (10.9-14.3); LYMPHOCYTES # (AUTO) 3.4 K/uL (20.0-40.0); LYMPHOCYTES % (AUTO) 25.8 % (20.5-51.5); MEAN CORPUSCULAR HEMOGLOBIN 26.5 uug (24.7-32.8); MEAN CORPUSCULAR HGB CONC 33 g/dL (32.3-35.6); MEAN CORPUSCULAR VOLUME 80.4 fL (75.5-95.3); MONOCYTES # (AUTO) 1.3 K/uL (2.0-10.0); MONOCYTES % (AUTO) 9.8 % (0.0-11.0); NEUTROPHILS # (AUTO) 8.3 K/uL (1.8-8.9); NEUTROPHILS % (AUTO) 62.9 % (38.5-71.5); PLATELET COUNT (AUTO) 299 K/uL (179-408); RED BLOOD CELL COUNT(AUTO) 3.31 MIL/uL (3.63-4.92); WHITE BLOOD COUNT (AUTO) 13.1 K/uL (3.8-11.8)
[2020-01-18 06:17] LABS: CREATININE 0.8 mg/dL (0.6-1.3); MAGNESIUM 2.3 mg/dL (1.8-2.4); PHOSPHOROUS 3.3 mg/dL (2.5-4.9); POTASSIUM 4.1 mmol/L (3.5-5.1)
[2020-01-18] MEDS: BLOOD SUGAR DIAGNOSTIC 1 EACH STRIP VI SCH ×4 (06:50→20:56)
[2020-01-18] MEDS: IPRATROPIUM BROMIDE 0.5 MG/2.5 ML NEBU NEB SCH ×3 (07:15→19:41)
[2020-01-18] MEDS: ALBUTEROL SULFATE 2.5 MG/3 ML NEBU NEB SCH ×3 (07:15→19:41)
[2020-01-18 08:00] VITALS: BP 147/53
[2020-01-18] MEDS: TOLTERODINE 2 MG TABLET PO SCH ×2 (09:17→20:56)
[2020-01-18] MEDS: CLOPIDOGREL 75 MG TABLET PO SCH (09:17)
[2020-01-18] MEDS: DOCUSATE SODIUM 100 MG CAPSULE PO SCH ×2 (09:17→17:07)
[2020-01-18] MEDS: FUROSEMIDE 20 MG TABLET PO SCH (09:17)
[2020-01-18] MEDS: LOSARTAN POTASSIUM 50 MG TABLET PO SCH ×2 (09:17→20:56)
[2020-01-18] MEDS: LORATADINE 10 MG TABLET PO SCH (09:17)
[2020-01-18] MEDS: ASPIRIN EC 81 MG TABLET.DR PO SCH (09:17)
[2020-01-18] MEDS: PAROXETINE HCL 10 MG TABLET PO SCH (09:18)
[2020-01-18] MEDS: glipiZIDE 5 MG TABLET PO SCH ×2 (09:18→17:07)
[2020-01-18] MEDS: PANTOPRAZOLE SODIUM 40 MG TABLET.DR PO SCH (09:18)
[2020-01-18] MEDS: PREGABALIN 25 MG CAPSULE PO SCH ×3 (09:18→21:01)
[2020-01-18] MEDS: LIDOCAINE 5% PATCH TD SCH (09:19)
[2020-01-18] MEDS: HYDROMORPHONE HCL 2 MG TABLET PO PRN ×3 (09:27→21:36)
[2020-01-18] MEDS: FLUTICASONE/VILANTEROL 1 EACH BLST.W.DEV INH SCH (09:27)
[2020-01-18] MEDS: TRIAMCINOLONE ACET 0.025% OINT 15 GM TUBE TP SCH (09:28)
[2020-01-18] MEDS: Z GUARD REMEDY PASTE 57 GM TUBE TOP SCH (09:28)
[2020-01-18] MEDS: INSULIN REGULAR, HUMAN 300 UNIT/3 ML VIAL SQ PRN ×3 (11:51→21:06)
[2020-01-18] MEDS: predniSONE 5 MG TABLET PO SCH (13:15)
[2020-01-18 16:35] VITALS: BP 135/45
[2020-01-18] MEDS: MIRALAX 17 GM POWD.PACK PO PRN (17:07)
[2020-01-18 20:35] VITALS: BP 138/41
[2020-01-18] MEDS: ATORVASTATIN 40 MG TABLET PO SCH (20:56)
[2020-01-18] MEDS: INSULIN GLARGINE,HUM 300 UNITS/3 ML CARTRIDGE SQ SCH (21:07)
[2020-01-19] VITALS (7 sets, daily range): BP systolic 111–189; BP diastolic 40–65
[2020-01-19] MEDS: IPRATROPIUM BROMIDE 0.5 MG/2.5 ML NEBU NEB PRN (00:35)
[2020-01-19] MEDS: ALBUTEROL SULFATE 2.5 MG/ 0.5 ML NEBU NEB PRN (00:35)
[2020-01-19] MEDS: GUAIFENESIN/DEXTROMETHORPHAN 5 ML UDC PO PRN ×3 (01:40→19:30)
[2020-01-19] MEDS: hydrALAZINE HCL 25 MG TABLET PO PRN (04:56)
[2020-01-19] MEDS: BACLOFEN 20 MG TABLET PO SCH ×3 (06:03→21:25)
[2020-01-19] MEDS: LABETALOL HCL 200 MG TABLET PO SCH ×3 (06:06→21:25)
[2020-01-19] MEDS: PREGABALIN 25 MG CAPSULE PO SCH ×3 (06:06→21:25)
[2020-01-19] MEDS: PANTOPRAZOLE SODIUM 40 MG TABLET.DR PO SCH (06:06)
[2020-01-19 06:23] LABS: BASOPHILS # (AUTO) 0.1 K/uL (0.0-8.0); BASOPHILS % (AUTO) 0.5 % (0.0-2.0); EOSINOPHILS % (AUTO) 0.3 % (0.0-7.0); HEMOGLOBIN 9.2 g/dL (10.9-14.3); LYMPHOCYTES # (AUTO) 1.7 K/uL (20.0-40.0); LYMPHOCYTES % (AUTO) 14.4 % (20.5-51.5); MEAN CORPUSCULAR HEMOGLOBIN 26.6 uug (24.7-32.8); MEAN CORPUSCULAR HGB CONC 33 g/dL (32.3-35.6); MEAN CORPUSCULAR VOLUME 80.6 fL (75.5-95.3); MONOCYTES % (AUTO) 8.4 % (0.0-11.0); NEUTROPHILS % (AUTO) 76.4 % (38.5-71.5); PLATELET COUNT (AUTO) 315 K/uL (179-408); RED BLOOD CELL COUNT(AUTO) 3.47 MIL/uL (3.63-4.92); WHITE BLOOD COUNT (AUTO) 11.7 K/uL (3.8-11.8)
[2020-01-19] MEDS: glipiZIDE 5 MG TABLET PO SCH ×2 (06:27→17:30)
[2020-01-19] MEDS: HYDROMORPHONE HCL 2 MG TABLET PO PRN ×3 (06:27→19:31)
[2020-01-19] MEDS: BLOOD SUGAR DIAGNOSTIC 1 EACH STRIP VI SCH ×4 (06:36→20:28)
[2020-01-19 06:39] LABS: CREATININE 0.8 mg/dL (0.6-1.3); MAGNESIUM 2.3 mg/dL (1.8-2.4); PHOSPHOROUS 3.5 mg/dL (2.5-4.9); POTASSIUM 3.8 mmol/L (3.5-5.1)
[2020-01-19] MEDS: IPRATROPIUM BROMIDE 0.5 MG/2.5 ML NEBU NEB SCH ×3 (07:57→19:28)
[2020-01-19] MEDS: ALBUTEROL SULFATE 2.5 MG/3 ML NEBU NEB SCH ×3 (07:57→19:28)
[2020-01-19] MEDS: FLUTICASONE/VILANTEROL 1 EACH BLST.W.DEV INH SCH (08:33)
[2020-01-19] MEDS: DOCUSATE SODIUM 100 MG CAPSULE PO SCH ×2 (08:33→17:30)
[2020-01-19] MEDS: PAROXETINE HCL 10 MG TABLET PO SCH (08:33)
[2020-01-19] MEDS: FUROSEMIDE 20 MG TABLET PO SCH (08:34)
[2020-01-19] MEDS: LOSARTAN POTASSIUM 50 MG TABLET PO SCH ×2 (08:34→21:26)
[2020-01-19] MEDS: CLOPIDOGREL 75 MG TABLET PO SCH (08:34)
[2020-01-19] MEDS: TOLTERODINE 2 MG TABLET PO SCH ×2 (08:34→21:26)
[2020-01-19] MEDS: ASPIRIN EC 81 MG TABLET.DR PO SCH (08:34)
[2020-01-19] MEDS: LORATADINE 10 MG TABLET PO SCH (08:35)
[2020-01-19] MEDS: INSULIN REGULAR, HUMAN 300 UNIT/3 ML VIAL SQ PRN ×4 (08:36→20:33)
[2020-01-19] MEDS: LIDOCAINE 5% PATCH TD SCH (08:37)
[2020-01-19] MEDS ORDERED: AMLODIPINE 5 MG TABLET PO SCH (09:00)
[2020-01-19] MEDS: Z GUARD REMEDY PASTE 57 GM TUBE TOP SCH (09:17)
[2020-01-19] MEDS: TRIAMCINOLONE ACET 0.025% OINT 15 GM TUBE TP SCH (09:18)
[2020-01-19] MEDS: MIRALAX 17 GM POWD.PACK PO PRN (10:20)
[2020-01-19] MEDS: predniSONE 5 MG TABLET PO SCH (12:38)
[2020-01-19] MEDS: ACETAMINOPHEN 325 MG TABLET PO PRN (14:59)
[2020-01-19] MEDS: INSULIN GLARGINE,HUM 300 UNITS/3 ML CARTRIDGE SQ SCH (20:35)
[2020-01-19] MEDS: ATORVASTATIN 40 MG TABLET PO SCH (21:26)
[2020-01-20 05:58] LABS: BASOPHILS # (AUTO) 0.1 K/uL (0.0-8.0); BASOPHILS % (AUTO) 0.9 % (0.0-2.0); EOSINOPHILS # (AUTO) 0.1 K/uL (0.0-0.7); EOSINOPHILS % (AUTO) 0.8 % (0.0-7.0); HEMATOCRIT 26.9 % (31.2-41.9); HEMOGLOBIN 8.9 g/dL (10.9-14.3); LYMPHOCYTES # (AUTO) 3.1 K/uL (20.0-40.0); LYMPHOCYTES % (AUTO) 24.1 % (20.5-51.5); MEAN CORPUSCULAR HEMOGLOBIN 26.8 uug (24.7-32.8); MEAN CORPUSCULAR HGB CONC 33 g/dL (32.3-35.6); MEAN CORPUSCULAR VOLUME 80.9 fL (75.5-95.3); MONOCYTES # (AUTO) 1.1 K/uL (2.0-10.0); MONOCYTES % (AUTO) 8.5 % (0.0-11.0); NEUTROPHILS # (AUTO) 8.4 K/uL (1.8-8.9); NEUTROPHILS % (AUTO) 65.7 % (38.5-71.5); PLATELET COUNT (AUTO) 323 K/uL (179-408); RED BLOOD CELL COUNT(AUTO) 3.33 MIL/uL (3.63-4.92); WHITE BLOOD COUNT (AUTO) 12.7 K/uL (3.8-11.8)
[2020-01-20] MEDS: GUAIFENESIN/DEXTROMETHORPHAN 5 ML UDC PO PRN ×3 (06:10→18:12)
[2020-01-20 06:11] LABS: CREATININE 0.8 mg/dL (0.6-1.3); MAGNESIUM 2.3 mg/dL (1.8-2.4); PHOSPHOROUS 3.6 mg/dL (2.5-4.9); POTASSIUM 3.9 mmol/L (3.5-5.1)
[2020-01-20] MEDS: HYDROMORPHONE HCL 2 MG TABLET PO PRN ×3 (06:12→18:14)
[2020-01-20] MEDS: BACLOFEN 20 MG TABLET PO SCH ×3 (06:13→21:03)
[2020-01-20] MEDS: PANTOPRAZOLE SODIUM 40 MG TABLET.DR PO SCH (06:13)
[2020-01-20] MEDS: PREGABALIN 25 MG CAPSULE PO SCH ×3 (06:13→21:03)
[2020-01-20] MEDS: LABETALOL HCL 200 MG TABLET PO SCH ×3 (06:14→22:00)
[2020-01-20] MEDS: BLOOD SUGAR DIAGNOSTIC 1 EACH STRIP VI SCH ×4 (06:43→21:06)
[2020-01-20] MEDS: IPRATROPIUM BROMIDE 0.5 MG/2.5 ML NEBU NEB SCH ×3 (07:43→20:06)
[2020-01-20] MEDS: ALBUTEROL SULFATE 2.5 MG/3 ML NEBU NEB SCH ×3 (07:43→20:06)
[2020-01-20 07:59] VITALS: BP 125/39
[2020-01-20] MEDS: PAROXETINE HCL 10 MG TABLET PO SCH (08:03)
[2020-01-20] MEDS: CLOPIDOGREL 75 MG TABLET PO SCH (08:04)
[2020-01-20] MEDS: TOLTERODINE 2 MG TABLET PO SCH ×2 (08:04→21:04)
[2020-01-20] MEDS: DOCUSATE SODIUM 100 MG CAPSULE PO SCH ×2 (08:05→16:35)
[2020-01-20] MEDS: FUROSEMIDE 20 MG TABLET PO SCH (08:06)
[2020-01-20] MEDS: LORATADINE 10 MG TABLET PO SCH (08:06)
[2020-01-20] MEDS: glipiZIDE 5 MG TABLET PO SCH ×2 (08:08→16:35)
[2020-01-20] MEDS: LOSARTAN POTASSIUM 50 MG TABLET PO SCH ×2 (08:08→21:04)
[2020-01-20] MEDS: LIDOCAINE 5% PATCH TD SCH (08:09)
[2020-01-20] MEDS: ASPIRIN EC 81 MG TABLET.DR PO SCH (08:10)
[2020-01-20] MEDS: TRIAMCINOLONE ACET 0.1% CREAM 15 GM TUBE TOP SCH (08:13)
[2020-01-20] MEDS: FLUTICASONE/VILANTEROL 1 EACH BLST.W.DEV INH SCH (08:13)
[2020-01-20] MEDS: TRIAMCINOLONE ACET 0.025% OINT 15 GM TUBE TP SCH (08:14)
[2020-01-20] MEDS: Z GUARD REMEDY PASTE 57 GM TUBE TOP SCH (08:14)
[2020-01-20] MEDS: BENZONATATE 100 MG CAPSULE PO PRN (11:53)
[2020-01-20] MEDS: ACETAMINOPHEN 325 MG TABLET PO PRN ×2 (11:53→22:21)
[2020-01-20] MEDS: predniSONE 5 MG TABLET PO SCH (11:54)
[2020-01-20] MEDS: levoFLOXacin 500 MG TABLET PO SCH (13:41)
[2020-01-20 15:10] VITALS: BP 129/54
[2020-01-20] MEDS: INSULIN REGULAR, HUMAN 300 UNIT/3 ML VIAL SQ PRN ×2 (16:37→21:14)
[2020-01-20] MEDS: MAGNESIUM HYDROXIDE 30 ML LIQUID UDC PO PRN (18:11)
[2020-01-20] MEDS: ALBUTEROL SULFATE 2.5 MG/ 0.5 ML NEBU NEB PRN (20:06)
[2020-01-20 20:36] VITALS: BP 125/39
[2020-01-20] MEDS ORDERED: AMLODIPINE 5 MG TABLET PO SCH (21:00)
[2020-01-20] MEDS: ATORVASTATIN 40 MG TABLET PO SCH (21:04)
[2020-01-20] MEDS: INSULIN GLARGINE,HUM 300 UNITS/3 ML CARTRIDGE SQ SCH (21:15)
[2020-01-20] MEDS: MIRALAX 17 GM POWD.PACK PO PRN (22:21)
[2020-01-20 22:25] VITALS: BP 117/36
[2020-01-21] VITALS (7 sets, daily range): BP systolic 102–149; BP diastolic 38–54
[2020-01-21] MEDS: GUAIFENESIN/DEXTROMETHORPHAN 5 ML UDC PO PRN ×4 (00:13→20:30)
[2020-01-21] MEDS: HYDROMORPHONE HCL 2 MG TABLET PO PRN ×4 (00:14→20:31)
[2020-01-21] MEDS: IPRATROPIUM BROMIDE 0.5 MG/2.5 ML NEBU NEB PRN (00:47)
[2020-01-21] MEDS: ALBUTEROL SULFATE 2.5 MG/ 0.5 ML NEBU NEB PRN (00:48)
[2020-01-21] MEDS: BACLOFEN 20 MG TABLET PO SCH ×3 (06:04→20:31)
[2020-01-21] MEDS: PREGABALIN 25 MG CAPSULE PO SCH ×3 (06:04→20:32)
[2020-01-21] MEDS: PANTOPRAZOLE SODIUM 40 MG TABLET.DR PO SCH ×2 (06:04→08:27)
[2020-01-21] MEDS: LABETALOL HCL 200 MG TABLET PO SCH ×3 (06:04→20:33)
[2020-01-21] MEDS: BLOOD SUGAR DIAGNOSTIC 1 EACH STRIP VI SCH ×4 (06:46→20:33)
[2020-01-21] MEDS: IPRATROPIUM BROMIDE 0.5 MG/2.5 ML NEBU NEB SCH ×3 (08:07→19:38)
[2020-01-21] MEDS: ALBUTEROL SULFATE 2.5 MG/3 ML NEBU NEB SCH ×3 (08:08→19:38)
[2020-01-21] MEDS: INSULIN REGULAR, HUMAN 300 UNIT/3 ML VIAL SQ PRN ×4 (08:25→20:36)
[2020-01-21] MEDS: PAROXETINE HCL 10 MG TABLET PO SCH (08:26)
[2020-01-21] MEDS: LORATADINE 10 MG TABLET PO SCH (08:27)
[2020-01-21] MEDS: ASPIRIN EC 81 MG TABLET.DR PO SCH (08:27)
[2020-01-21] MEDS: TOLTERODINE 2 MG TABLET PO SCH ×2 (08:27→20:31)
[2020-01-21] MEDS: FUROSEMIDE 20 MG TABLET PO SCH (08:27)
[2020-01-21] MEDS: DOCUSATE SODIUM 100 MG CAPSULE PO SCH ×2 (08:27→17:14)
[2020-01-21] MEDS: glipiZIDE 5 MG TABLET PO SCH ×2 (08:27→17:14)
[2020-01-21] MEDS: CLOPIDOGREL 75 MG TABLET PO SCH (08:27)
[2020-01-21] MEDS: LIDOCAINE 5% PATCH TD SCH (08:35)
[2020-01-21] MEDS: MIRALAX 17 GM POWD.PACK PO PRN (08:39)
[2020-01-21] MEDS: MAGNESIUM HYDROXIDE 30 ML LIQUID UDC PO PRN (08:39)
[2020-01-21] MEDS: LOSARTAN POTASSIUM 50 MG TABLET PO SCH ×2 (08:51→20:31)
[2020-01-21 09:57] LABS: POTASSIUM 4.2 mmol/L (3.5-5.1)
[2020-01-21 10:03] LABS: BASOPHILS # (AUTO) 0.1 K/uL (0.0-8.0); BASOPHILS % (AUTO) 0.9 % (0.0-2.0); EOSINOPHILS # (AUTO) 0.1 K/uL (0.0-0.7); EOSINOPHILS % (AUTO) 0.8 % (0.0-7.0); HEMATOCRIT 26.4 % (31.2-41.9); HEMOGLOBIN 8.7 g/dL (10.9-14.3); LYMPHOCYTES % (AUTO) 27.9 % (20.5-51.5); MEAN CORPUSCULAR HEMOGLOBIN 26.9 uug (24.7-32.8); MEAN CORPUSCULAR HGB CONC 33 g/dL (32.3-35.6); MEAN CORPUSCULAR VOLUME 81.5 fL (75.5-95.3); MONOCYTES # (AUTO) 0.8 K/uL (2.0-10.0); MONOCYTES % (AUTO) 7.3 % (0.0-11.0); NEUTROPHILS # (AUTO) 6.8 K/uL (1.8-8.9); NEUTROPHILS % (AUTO) 63.1 % (38.5-71.5); PLATELET COUNT (AUTO) 311 K/uL (179-408); RED BLOOD CELL COUNT(AUTO) 3.24 MIL/uL (3.63-4.92); WHITE BLOOD COUNT (AUTO) 10.8 K/uL (3.8-11.8)
[2020-01-21] MEDS: ACETAMINOPHEN 325 MG TABLET PO PRN (11:19)
[2020-01-21] MEDS: TRIAMCINOLONE ACET 0.1% CREAM 15 GM TUBE TOP SCH (11:25)
[2020-01-21] MEDS: Z GUARD REMEDY PASTE 57 GM TUBE TOP SCH (11:26)
[2020-01-21] MEDS: TRIAMCINOLONE ACET 0.025% OINT 15 GM TUBE TP SCH (11:27)
[2020-01-21] MEDS: FLUTICASONE/VILANTEROL 1 EACH BLST.W.DEV INH SCH (12:38)
[2020-01-21] MEDS: predniSONE 20 MG TABLET PO SCH (12:44)
[2020-01-21] MEDS: levoFLOXacin 500 MG TABLET PO SCH (12:44)
[2020-01-21] MEDS: ATORVASTATIN 40 MG TABLET PO SCH (20:32)
[2020-01-21] MEDS: INSULIN GLARGINE,HUM 300 UNITS/3 ML CARTRIDGE SQ SCH (20:36)
[2020-01-22] MEDS: IPRATROPIUM BROMIDE 0.5 MG/2.5 ML NEBU NEB PRN (00:30)
[2020-01-22] MEDS: ALBUTEROL SULFATE 2.5 MG/ 0.5 ML NEBU NEB PRN (00:30)
[2020-01-22] MEDS: HYDROMORPHONE HCL 2 MG TABLET PO PRN ×2 (04:35→12:02)
[2020-01-22 04:40] VITALS: BP 175/57
[2020-01-22] MEDS: PANTOPRAZOLE SODIUM 40 MG TABLET.DR PO SCH (06:35)
[2020-01-22] MEDS: glipiZIDE 5 MG TABLET PO SCH (06:35)
[2020-01-22] MEDS: PREGABALIN 25 MG CAPSULE PO SCH ×2 (06:35→14:09)
[2020-01-22] MEDS: BACLOFEN 20 MG TABLET PO SCH ×2 (06:35→14:09)
[2020-01-22] MEDS: BLOOD SUGAR DIAGNOSTIC 1 EACH STRIP VI SCH ×2 (06:38→12:05)
[2020-01-22] MEDS: LABETALOL HCL 200 MG TABLET PO SCH ×2 (06:38→14:09)
[2020-01-22] MEDS: IPRATROPIUM BROMIDE 0.5 MG/2.5 ML NEBU NEB SCH ×2 (07:48→13:43)
[2020-01-22] MEDS: ALBUTEROL SULFATE 2.5 MG/3 ML NEBU NEB SCH ×2 (07:48→13:43)
[2020-01-22] MEDS: INSULIN REGULAR, HUMAN 300 UNIT/3 ML VIAL SQ PRN (08:10)
[2020-01-22] MEDS: PAROXETINE HCL 10 MG TABLET PO SCH (08:12)
[2020-01-22] MEDS: CLOPIDOGREL 75 MG TABLET PO SCH (08:12)
[2020-01-22] MEDS: LORATADINE 10 MG TABLET PO SCH (08:12)
[2020-01-22] MEDS: TOLTERODINE 2 MG TABLET PO SCH (08:12)
[2020-01-22] MEDS: ASPIRIN EC 81 MG TABLET.DR PO SCH (08:13)
[2020-01-22] MEDS: DOCUSATE SODIUM 100 MG CAPSULE PO SCH (08:13)
[2020-01-22] MEDS: LOSARTAN POTASSIUM 50 MG TABLET PO SCH (08:13)
[2020-01-22] MEDS: FLUTICASONE/VILANTEROL 1 EACH BLST.W.DEV INH SCH (08:14)
[2020-01-22] MEDS: LIDOCAINE 5% PATCH TD SCH (08:16)
[2020-01-22] MEDS: TRIAMCINOLONE ACET 0.1% CREAM 15 GM TUBE TOP SCH (08:17)
[2020-01-22] MEDS: Z GUARD REMEDY PASTE 57 GM TUBE TOP SCH (08:17)
[2020-01-22] MEDS: TRIAMCINOLONE ACET 0.025% OINT 15 GM TUBE TP SCH (08:17)
[2020-01-22 08:21] VITALS: BP 137/38
[2020-01-22] MEDS ORDERED: FUROSEMIDE 20 MG TABLET PO SCH (09:00)
[2020-01-22] MEDS ORDERED: INFLUENZA VACCINE 2020-2021 0.5 ML DISP.SYRIN IM ONE (11:00)
[2020-01-22] MEDS: predniSONE 20 MG TABLET PO SCH (12:02)
[2020-01-22] MEDS: levoFLOXacin 500 MG TABLET PO SCH (12:02)
[2020-01-22] MEDS: ACETAMINOPHEN 325 MG TABLET PO PRN (14:01)
[2020-01-22] MEDS: GUAIFENESIN/DEXTROMETHORPHAN 5 ML UDC PO PRN (14:01)
[2020-01-22 15:32] VITALS: BP 131/46
== END 2020-01-22 15:45 | disposition home health service (06) | DRG 194 ==
PROVIDERS: ADMIT Physical Medicine & Rehabilitation Pain Medicine; ATTEND Physical Medicine & Rehabilitation Pain Medicine
PROC: 0JBP0ZZ Excision of Left Lower Leg Subcutaneous Tissue and Fascia, Open Approach (ICD-10-PCS; principal; 2020-01-13)
DX: I13.0 Hypertensive heart and chronic kidney disease with heart failure and stage 1 through stage 4 chronic kidney disease, or unspecified chronic kidney disease (principal); I50.43 Acute on chronic combined systolic (congestive) and diastolic (congestive) heart failure; J96.01 Acute respiratory failure with hypoxia; D64.9 Anemia, unspecified; D68.59 Other primary thrombophilia; E03.9 Hypothyroidism, unspecified; E11.22 Type 2 diabetes mellitus with diabetic chronic kidney disease; E11.42 Type 2 diabetes mellitus with diabetic polyneuropathy; E11.65 Type 2 diabetes mellitus with hyperglycemia; E11.51 Type 2 diabetes mellitus with diabetic peripheral angiopathy without gangrene; E66.2 Morbid (severe) obesity with alveolar hypoventilation; Z68.42 Body mass index [BMI] 45.0-49.9, adult; E78.5 Hyperlipidemia, unspecified; G89.29 Other chronic pain; N18.9 Chronic kidney disease, unspecified; N17.0 Acute kidney failure with tubular necrosis; M51.36 Other intervertebral disc degeneration, lumbar region; N32.81 Overactive bladder; Z79.899 Other long term (current) drug therapy; Z79.51 Long term (current) use of inhaled steroids; R13.10 Dysphagia, unspecified; L03.115 Cellulitis of right lower limb; J44.9 Chronic obstructive pulmonary disease, unspecified; I69.354 Hemiplegia and hemiparesis following cerebral infarction affecting left non-dominant side; I70.0 Atherosclerosis of aorta; L03.116 Cellulitis of left lower limb; R32 Unspecified urinary incontinence; Z79.891 Long term (current) use of opiate analgesic; Z96.652 Presence of left artificial knee joint; Z87.891 Personal history of nicotine dependence; I25.10 Atherosclerotic heart disease of native coronary artery without angina pectoris; I69.398 Other sequelae of cerebral infarction; M21.372 Foot drop, left foot; F32.9 Major depressive disorder, single episode, unspecified; F40.240 Claustrophobia; I65.23 Occlusion and stenosis of bilateral carotid arteries; I87.2 Venous insufficiency (chronic) (peripheral); J45.901 Unspecified asthma with (acute) exacerbation; L97.929 Non-pressure chronic ulcer of unspecified part of left lower leg with unspecified severity; E87.1 Hypo-osmolality and hyponatremia; Z98.51 Tubal ligation status; Z86.14 Personal history of Methicillin resistant Staphylococcus aureus infection; D50.9 Iron deficiency anemia, unspecified; K21.9 Gastro-esophageal reflux disease without esophagitis; Z87.440 Personal history of urinary (tract) infections; Z88.1 Allergy status to other antibiotic agents; R53.1 Weakness; R07.89 Other chest pain; M54.5 Low back pain
CPT/HCPCS: 36415; 70030-TC; 71045; 74230; 82652; 83550; 83735; 84100; 84156; 84300; 84443; 84480; 85025; 87070; 87077; 87086; 90686; 93005; 93307; 94640; 94660; 94664; A4663; J1650; J1720; J1815; J2920; J3370; J3590; J7040; J7060; J7512

== ENCOUNTER 2020-03-10 20:19 | Inpatient (IN) | payer OTHER ==
[~2020-03-10] VITALS: Ht 157.5 cm; Wt 112.0 kg
[~2020-03-10 20:19] MED LIST: ALBU2.5V13 NEB; ASPI81TA31 PO; ATOR40TA PO; BACL10TA PO; CLOP75TA15 PO; CLOT15CR27 TP; DOCU100C36 PO; ENOX40DI SQ; FURO40TA5 PO; GLIP5TAB13 PO; HYDR-4077 PO; HYDR-894 PO; HYDR2TAB4 PO; INSU100V28 SUBCUT; INSU100V7 SQ; IPRA0.2S48 NEB; IPRA0.2S6 NEB; LABE200T5 PO; LIDO30AD10 TD; LINA5TAB PO; LOSA50TA39 PO; MUPI22OI2; OXYB5TAB16 PO; PANT40TA49 PO; PARO10TA86 PO; PREG75CA PO; TRIA80OI TP; VANC1FRO2 IV
--- NOTE | 2020-03-10 20:20 | NUR ---
Received patient via ambulance from [facility]. Awake, alert and oriented with a visible weakness on the left side, with hand roll in placed. No s/s of respiratory distress with continuos O2 at 2L/min via NC. Transferred gently to bed with 2 people assist. Able to repositioned self in bed. Routine admission care done. Plan of care initiated.
[2020-03-10] MEDS ORDERED: Z GUARD REMEDY PASTE 57 GM TUBE TOP PRN (21:00)
[2020-03-10] MEDS ORDERED: CLOT15CR5 TP (21:32)
[2020-03-10] MEDS ORDERED: PANT40TA49 PO (21:32)
[2020-03-10] MEDS ORDERED: CLOP75TA15 PO (21:32)
[2020-03-10] MEDS ORDERED: IPRA0.2S48 NEB ×2 (21:32)
[2020-03-10] MEDS ORDERED: PARO37.511 PO (21:32)
[2020-03-10] MEDS ORDERED: BACL10TA PO (21:32)
[2020-03-10] MEDS ORDERED: OXYB5TAB16 PO (21:32)
[2020-03-10] MEDS ORDERED: LABE200T5 PO (21:32)
[2020-03-10] MEDS ORDERED: DOCU100C36 PO (21:32)
[2020-03-10] MEDS ORDERED: HYDR2TAB4 PO (21:32)
[2020-03-10] MEDS ORDERED: PREG75CA PO (21:32)
[2020-03-10] MEDS ORDERED: ALBU2.5V13 IH (21:32)
[2020-03-10] MEDS ORDERED: GLIP5TAB13 PO (21:32)
[2020-03-10] MEDS ORDERED: LINA5TAB PO (21:32)
[2020-03-10] MEDS ORDERED: LIDO30AD10 TD (21:32)
[2020-03-10] MEDS ORDERED: LOSA100T31 PO (21:32)
[2020-03-10] MEDS ORDERED: MUPI22OI2 (21:32)
[2020-03-10] MEDS ORDERED: TRIA80CR2 TP (21:32)
[2020-03-10] MEDS ORDERED: EZET10TA15 PO (21:32)
[2020-03-10] MEDS ORDERED: ATOR40TA PO (21:32)
[2020-03-10] MEDS ORDERED: ASPI81TA31 PO (21:32)
[2020-03-10 23:03] VITALS: BP 116/43
[2020-03-10] MEDS ORDERED: IPRATROPIUM BROMIDE 0.5 MG/2.5 ML NEBU NEB PRN (23:30)
[2020-03-10] MEDS ORDERED: DEXTROSE 50% 50 ML DISP.SYRIN IV PRN (23:30)
[2020-03-11] MEDS: VANCOMYCIN IV 2,000 MG in IV DEXTROSE 5% 500 ML IV SCH ×2 (00:15→01:29)
[2020-03-11] MEDS: GUAIFENESIN/DEXTROMETHORPHAN 5 ML UDC PO PRN ×4 (01:52→22:29)
[2020-03-11] MEDS: IPRATROPIUM BROMIDE 0.5 MG/2.5 ML NEBU NEB SCH ×4 (02:00→19:38)
[2020-03-11] MEDS: ALBUTEROL SULFATE 1.25 MG/3 ML NEBU NEB SCH ×4 (02:00→19:38)
[2020-03-11] MEDS ORDERED: HYDROMORPHONE HCL 2 MG TABLET PO SCH (02:15)
[2020-03-11 04:24] VITALS: BP 153/54
[2020-03-11] MEDS: BACLOFEN 10 MG TABLET PO SCH ×3 (06:30→21:23)
[2020-03-11] MEDS: BLOOD SUGAR DIAGNOSTIC 1 EACH STRIP VI SCH ×4 (06:46→21:19)
[2020-03-11 07:30] VITALS: BP 149/47
--- NOTE | 2020-03-11 07:30 | NUR ---
on bed, resting well. o2 use with relief from prn mild sob
[2020-03-11 07:58] LABS: BASOPHILS # (AUTO) 0.1 K/uL (0.0-8.0); BASOPHILS % (AUTO) 1.4 % (0.0-2.0); EOSINOPHILS # (AUTO) 0.3 K/uL (0.0-0.7); EOSINOPHILS % (AUTO) 4.2 % (0.0-7.0); HEMATOCRIT 26.9 % (31.2-41.9); HEMOGLOBIN 9.2 g/dL (10.9-14.3); LYMPHOCYTES # (AUTO) 2.1 K/uL (20.0-40.0); LYMPHOCYTES % (AUTO) 26.8 % (20.5-51.5); MEAN CORPUSCULAR HEMOGLOBIN 28.8 uug (24.7-32.8); MEAN CORPUSCULAR HGB CONC 34 g/dL (32.3-35.6); MEAN CORPUSCULAR VOLUME 84.3 fL (75.5-95.3); MONOCYTES # (AUTO) 0.9 K/uL (2.0-10.0); MONOCYTES % (AUTO) 11.7 % (0.0-11.0); NEUTROPHILS # (AUTO) 4.4 K/uL (1.8-8.9); NEUTROPHILS % (AUTO) 55.9 % (38.5-71.5); PLATELET COUNT (AUTO) 297 K/uL (179-408); WHITE BLOOD COUNT (AUTO) 7.9 K/uL (3.8-11.8)
[2020-03-11 08:07] LABS: CREATININE 0.8 mg/dL (0.6-1.3); POTASSIUM 3.8 mmol/L (3.5-5.1)
[2020-03-11] MEDS: DOCUSATE SODIUM 100 MG CAPSULE PO SCH ×2 (08:51→17:25)
[2020-03-11] MEDS: glipiZIDE 5 MG TABLET PO SCH ×2 (08:52→17:27)
[2020-03-11] MEDS: EZETIMIBE 10 MG TABLET PO SCH (08:52)
[2020-03-11] MEDS: FUROSEMIDE 40 MG TABLET PO SCH ×2 (08:52→17:25)
[2020-03-11] MEDS: CLOPIDOGREL 75 MG TABLET PO SCH (08:52)
[2020-03-11] MEDS: OXYBUTYNIN CHLORIDE 5 MG TABLET PO SCH ×3 (08:53→17:26)
[2020-03-11] MEDS: ENOXAPARIN SODIUM 40 MG/0.4 ML DISP.SYRIN SQ SCH (08:57)
[2020-03-11] MEDS: hydrALAZINE HCL 50 MG TABLET PO SCH ×2 (09:00→17:26)
[2020-03-11] MEDS: LABETALOL HCL 200 MG TABLET PO SCH ×2 (09:00→17:26)
[2020-03-11] MEDS: LOSARTAN POTASSIUM 50 MG TABLET PO SCH (09:00)
[2020-03-11] MEDS ORDERED: PAROXETINE HCL 20 MG TABLET PO SCH (09:00)
[2020-03-11] MEDS ORDERED: PAROXETINE HCL 10 MG TABLET PO SCH ×2 (09:00→11:30)
--- NOTE | 2020-03-11 09:17 | NUR ---
PATIENT DOWN TO PT
--- NOTE | 2020-03-11 11:00 | NUR ---
back from PT, meds verified, Dr Penny aware , with orders and carried out.
[2020-03-11] MEDS ORDERED: LINAGLIPTIN 5 MG TABLET PO SCH (11:30)
[2020-03-11] MEDS: HYDROMORPHONE HCL 2 MG TABLET PO PRN ×2 (12:57→20:36)
[2020-03-11] MEDS: LINAGLIPTIN 5 MG TABLET PO SCH (13:14)
[2020-03-11] MEDS: CLOTRIMAZOLE/BETAMET DIPROP CREAM 15 GM TUBE TP SCH ×2 (13:14→17:28)
[2020-03-11] MEDS: MIRALAX 17 GM POWD.PACK PO SCH (13:15)
[2020-03-11] MEDS: PAROXETINE 37.5 MG PO SCH (13:39)
--- NOTE | 2020-03-11 14:00 | NUR ---
patient down to PT
--- NOTE | 2020-03-11 16:00 | NUR ---
back from PT , meds given as ordered
[2020-03-11] MEDS: LIDOCAINE 5% PATCH TD SCH ×2 (16:11→16:12)
[2020-03-11 16:38] VITALS: BP 157/58
[2020-03-11] MEDS: ACETAMINOPHEN 325 MG TABLET PO PRN (17:50)
--- NOTE | 2020-03-11 18:35 | NUR ---
both cellulitis still swollen, red. med as requested due to headache, back and left thigh discomfort. appreciative of care.
[2020-03-11 20:21] VITALS: BP 176/67
[2020-03-11] MEDS: ATORVASTATIN 40 MG TABLET PO SCH (20:35)
[2020-03-11] MEDS: PANTOPRAZOLE SODIUM 40 MG TABLET.DR PO SCH (20:35)
[2020-03-11] MEDS: PREGABALIN 25 MG CAPSULE PO SCH (21:23)
[2020-03-11] MEDS: CLONIDINE HCL 0.1 MG TABLET PO PRN (21:24)
[2020-03-11] MEDS: INSULIN REGULAR, HUMAN 300 UNIT/3 ML VIAL SQ PRN (21:25)
[2020-03-11] MEDS ORDERED: PREGABALIN 50 MG CAPSULE PO SCH (22:00)
[2020-03-12 00:09] VITALS: BP 156/54
--- NOTE | 2020-03-12 00:23 | NUR ---
Received pt sitting in the wheelchair at bedside. AAO x4. On 3L O2 via NC. Noted to have nonproductive cough, Pt assisted back in bed safely. Turned and repositioned. Both heels offloaded. Safety measures maintained. Call light and personal items within reach. Will continue to monitor.
[2020-03-12] MEDS: IPRATROPIUM BROMIDE 0.5 MG/2.5 ML NEBU NEB SCH ×4 (01:28→19:18)
[2020-03-12] MEDS: ALBUTEROL SULFATE 1.25 MG/3 ML NEBU NEB SCH ×4 (01:28→19:18)
[2020-03-12] MEDS: HYDROMORPHONE HCL 2 MG TABLET PO PRN ×4 (02:47→23:44)
[2020-03-12] MEDS: VANCOMYCIN IV 1,250 MG in IV DEXTROSE 5% 250 ML IV SCH (02:48)
[2020-03-12 04:21] VITALS: BP 174/63
[2020-03-12] MEDS: BACLOFEN 10 MG TABLET PO SCH ×3 (05:29→21:00)
[2020-03-12] MEDS: CLONIDINE HCL 0.1 MG TABLET PO PRN (05:29)
[2020-03-12] MEDS: PREGABALIN 25 MG CAPSULE PO SCH ×3 (05:29→21:00)
[2020-03-12] MEDS ORDERED: GUAIFENESIN/DEXTROMETHORPHAN 5 ML UDC ONE (05:52)
[2020-03-12] MEDS: GUAIFENESIN/DEXTROMETHORPHAN 5 ML UDC PO PRN ×3 (06:04→19:47)
--- NOTE | 2020-03-12 06:13 | NUR ---
Pt had a witnessed fall at 0505. Pt fell on her left buttock. On 2L via NC, No acute distress noted. No wound/ discoloration noted. Assisted back to bed safely. Vital signs: BP 174/63, HR 73, RR 20, TEMP 98.2. Pt's BP already elevated prior to the fall. Complain of generalized pain, but pt denies to have greater pain on the buttock area where she landed on. Notified Dr. Jaimes, with order to monitor pt and reports if pain gets worse and follow up again with MD. Safety measures maintained. Call light and personal items within reach. Will continue to monitor.
[2020-03-12] MEDS: BLOOD SUGAR DIAGNOSTIC 1 EACH STRIP VI SCH ×4 (06:33→21:09)
[2020-03-12 07:30] VITALS: BP 139/51
[2020-03-12] MEDS: LIDOCAINE 5% PATCH TD SCH ×2 (08:14)
[2020-03-12] MEDS: MIRALAX 17 GM POWD.PACK PO SCH (08:14)
[2020-03-12] MEDS: PAROXETINE 37.5 MG PO SCH (08:14)
[2020-03-12] MEDS: FUROSEMIDE 40 MG TABLET PO SCH ×2 (08:15→16:07)
[2020-03-12] MEDS: EZETIMIBE 10 MG TABLET PO SCH (08:15)
[2020-03-12] MEDS: LABETALOL HCL 200 MG TABLET PO SCH ×2 (08:15→16:07)
[2020-03-12] MEDS: hydrALAZINE HCL 50 MG TABLET PO SCH ×2 (08:15→16:06)
[2020-03-12] MEDS: LOSARTAN POTASSIUM 50 MG TABLET PO SCH (08:15)
[2020-03-12] MEDS: LINAGLIPTIN 5 MG TABLET PO SCH (08:15)
[2020-03-12] MEDS: CLOPIDOGREL 75 MG TABLET PO SCH (08:15)
[2020-03-12] MEDS: DOCUSATE SODIUM 100 MG CAPSULE PO SCH ×2 (08:15→16:06)
[2020-03-12] MEDS: OXYBUTYNIN CHLORIDE 5 MG TABLET PO SCH ×3 (08:15→16:06)
[2020-03-12] MEDS: ENOXAPARIN SODIUM 40 MG/0.4 ML DISP.SYRIN SQ SCH (08:16)
[2020-03-12] MEDS: glipiZIDE 5 MG TABLET PO SCH ×2 (08:18→17:11)
[2020-03-12] MEDS: CLOTRIMAZOLE/BETAMET DIPROP CREAM 15 GM TUBE TP SCH ×2 (08:30→16:07)
[2020-03-12] MEDS: INSULIN REGULAR, HUMAN 300 UNIT/3 ML VIAL SQ PRN ×2 (11:27→21:11)
--- NOTE | 2020-03-12 14:08 | NUR ---
Social Work Stroke Resources: apartment maintenance worker met with patient and provided stroke referrals such as: Stroke Family Warmline at (6-817-3-STROKE) and additional information on caring for a stroke survivor ( ). apartment maintenance worker also educated patient on the signs of Stroke and to immediately call 911. apartment maintenance worker provided education on the signs of stroke and provided educational packet with information: Dietary food, what stroke is, risks, emotional support, finding support, medical management, and effects of stroke.
--- NOTE | 2020-03-12 14:09 | NUR ---
[facility] PH9 Post Stroke Depression Screening: picking table worker met with patient and conducted a PHQ-9 (Post Stroke Depression Screening) in which the patient score of a level of 3 for depression. Patient does not require a psychiatric consult at this time.
[2020-03-12 16:00] VITALS: BP 127/41
--- NOTE | 2020-03-12 19:00 | NUR ---
Patient received from AM nurse. VSS. Will continue to monitor and assess.
[2020-03-12 20:00] VITALS: BP 125/56
[2020-03-12] MEDS: PANTOPRAZOLE SODIUM 40 MG TABLET.DR PO SCH (20:59)
[2020-03-12] MEDS: ATORVASTATIN 40 MG TABLET PO SCH (20:59)
[2020-03-12] MEDS: MAGNESIUM HYDROXIDE 30 ML LIQUID UDC PO PRN (22:48)
[2020-03-13] MEDS: IPRATROPIUM BROMIDE 0.5 MG/2.5 ML NEBU NEB SCH ×4 (00:35→19:50)
[2020-03-13] MEDS: ALBUTEROL SULFATE 1.25 MG/3 ML NEBU NEB SCH ×4 (00:35→19:50)
[2020-03-13] MEDS: VANCOMYCIN IV 1,250 MG in IV DEXTROSE 5% 250 ML IV SCH (02:25)
[2020-03-13 04:00] VITALS: BP 140/58
--- NOTE | 2020-03-13 04:09 | NUR ---
Patient slept intermittently throughout the night. Attempts made to get patient to be comfortable. Pain medication given Q6H on the dot, per patient request. Patient was adamant about walking to restroom but was educated that she cannot ambulate in her current state---bedside commode/diaper used. O2 running at 2L via NC. Will continue to monitor and assess.
[2020-03-13] MEDS: GUAIFENESIN/DEXTROMETHORPHAN 5 ML UDC PO PRN ×2 (05:09→15:40)
[2020-03-13] MEDS: BACLOFEN 10 MG TABLET PO SCH ×3 (05:32→21:12)
[2020-03-13] MEDS: PREGABALIN 25 MG CAPSULE PO SCH ×3 (05:33→21:12)
[2020-03-13 07:05] LABS: MAGNESIUM 2.1 mg/dL (1.8-2.4); PHOSPHOROUS 3.9 mg/dL (2.5-4.9); POTASSIUM 3.8 mmol/L (3.5-5.1); URIC ACID 5.3 mg/dL (2.6-6.0)
--- NOTE | 2020-03-13 07:05 | NUR ---
Patient handed off to AM nurse. VSS. Patient in stable condition. Endorsing to AM nurse.
[2020-03-13] MEDS: BLOOD SUGAR DIAGNOSTIC 1 EACH STRIP VI SCH ×4 (07:06→21:12)
[2020-03-13 07:16] LABS: THYROID STIMULATING HORMONE 2.779 mIU/mL (0.358-3.740)
[2020-03-13] MEDS: ENOXAPARIN SODIUM 40 MG/0.4 ML DISP.SYRIN SQ SCH (08:05)
[2020-03-13] MEDS: PAROXETINE 37.5 MG PO SCH (08:05)
[2020-03-13] MEDS: hydrALAZINE HCL 50 MG TABLET PO SCH ×2 (08:06→16:20)
[2020-03-13] MEDS: LABETALOL HCL 200 MG TABLET PO SCH ×2 (08:06→16:20)
[2020-03-13] MEDS: DOCUSATE SODIUM 100 MG CAPSULE PO SCH ×2 (08:06→16:20)
[2020-03-13] MEDS: glipiZIDE 5 MG TABLET PO SCH ×2 (08:06→17:36)
[2020-03-13] MEDS: EZETIMIBE 10 MG TABLET PO SCH (08:06)
[2020-03-13] MEDS: FUROSEMIDE 40 MG TABLET PO SCH ×2 (08:06→16:20)
[2020-03-13] MEDS: LOSARTAN POTASSIUM 50 MG TABLET PO SCH (08:06)
[2020-03-13] MEDS: LINAGLIPTIN 5 MG TABLET PO SCH (08:06)
[2020-03-13] MEDS: CLOPIDOGREL 75 MG TABLET PO SCH (08:06)
[2020-03-13] MEDS: OXYBUTYNIN CHLORIDE 5 MG TABLET PO SCH ×3 (08:06→16:20)
[2020-03-13] MEDS: MIRALAX 17 GM POWD.PACK PO SCH (08:07)
[2020-03-13] MEDS: LIDOCAINE 5% PATCH TD SCH ×2 (08:07)
[2020-03-13] MEDS: CLOTRIMAZOLE/BETAMET DIPROP CREAM 15 GM TUBE TP SCH ×2 (08:07→16:21)
[2020-03-13 08:21] VITALS: BP 124/88
[2020-03-13 09:38] LABS: *BILIRUBIN,URIN NEGATIVE (NEGATIVE); *BLOOD, URINE NEGATIVE (NEGATIVE); *CLARITY,URINE CLEAR (CLEAR); *COLOR,URINE YELLOW (YELLOW); *KETONES,URINE NEGATIVE (NEGATIVE); *UROBILINOGEN,URINE 0.2 E.U./dl (NORMAL); LEUKOCYTE ESTERASE ,URINE NEGATIVE (NEGATIVE); NITRITE, URINE NEGATIVE (NEGATIVE); UGLUCOSE NEGATIVE (NEGATIVE)
[2020-03-13 09:59] LABS: *CREATININE,URINE 25.8 mg/dL (30-125); *URINE TOTAL PROTEIN RANDOM < 6.0 mg/dL (<150/24HR)
[2020-03-13] MEDS: INSULIN REGULAR, HUMAN 300 UNIT/3 ML VIAL SQ PRN ×2 (11:24→21:15)
[2020-03-13] MEDS: HYDROMORPHONE HCL 2 MG TABLET PO PRN (12:18)
[2020-03-13 15:00] VITALS: BP 132/55
[2020-03-13 20:00] VITALS: BP 141/50
[2020-03-13] MEDS: PANTOPRAZOLE SODIUM 40 MG TABLET.DR PO SCH (21:12)
[2020-03-13] MEDS: ATORVASTATIN 40 MG TABLET PO SCH (21:12)
--- NOTE | 2020-03-13 21:52 | NUR ---
Received patient resting in bed. No s/s of acute distress noted at this time. Pt in 2L NC and denies SOB. HOB >45 degrees. Safety measures in place and will continue to monitor.
[2020-03-14] MEDS: IPRATROPIUM BROMIDE 0.5 MG/2.5 ML NEBU NEB SCH ×4 (01:28→19:10)
[2020-03-14] MEDS: ALBUTEROL SULFATE 1.25 MG/3 ML NEBU NEB SCH ×4 (01:28→19:10)
[2020-03-14] MEDS: VANCOMYCIN IV 1,250 MG in IV DEXTROSE 5% 250 ML IV SCH (02:04)
[2020-03-14] MEDS: GUAIFENESIN/DEXTROMETHORPHAN 5 ML UDC PO PRN ×3 (02:04→21:53)
[2020-03-14] MEDS: HYDROMORPHONE HCL 2 MG TABLET PO PRN ×3 (02:05→19:50)
[2020-03-14 04:00] VITALS: BP 161/60
[2020-03-14] MEDS: CLONIDINE HCL 0.1 MG TABLET PO PRN (05:13)
[2020-03-14 06:11] VITALS: BP 146/61
[2020-03-14] MEDS: BACLOFEN 10 MG TABLET PO SCH ×3 (06:24→21:04)
[2020-03-14] MEDS: PREGABALIN 25 MG CAPSULE PO SCH ×3 (06:24→21:04)
[2020-03-14] MEDS: BLOOD SUGAR DIAGNOSTIC 1 EACH STRIP VI SCH ×4 (06:33→21:18)
[2020-03-14 08:00] VITALS: BP 136/61
[2020-03-14] MEDS: OXYBUTYNIN CHLORIDE 5 MG TABLET PO SCH ×3 (08:08→16:23)
[2020-03-14] MEDS: PAROXETINE 37.5 MG PO SCH (08:08)
[2020-03-14] MEDS: MIRALAX 17 GM POWD.PACK PO SCH (08:08)
[2020-03-14] MEDS: LINAGLIPTIN 5 MG TABLET PO SCH (08:08)
[2020-03-14] MEDS: LIDOCAINE 5% PATCH TD SCH ×2 (08:08)
[2020-03-14] MEDS: LOSARTAN POTASSIUM 50 MG TABLET PO SCH (08:09)
[2020-03-14] MEDS: FUROSEMIDE 40 MG TABLET PO SCH (08:09)
[2020-03-14] MEDS: hydrALAZINE HCL 50 MG TABLET PO SCH ×2 (08:09→16:23)
[2020-03-14] MEDS: DOCUSATE SODIUM 100 MG CAPSULE PO SCH ×2 (08:09→16:23)
[2020-03-14] MEDS: LABETALOL HCL 200 MG TABLET PO SCH ×2 (08:09→16:23)
[2020-03-14] MEDS: glipiZIDE 5 MG TABLET PO SCH ×2 (08:09→17:03)
[2020-03-14] MEDS: CLOPIDOGREL 75 MG TABLET PO SCH (08:09)
[2020-03-14] MEDS: EZETIMIBE 10 MG TABLET PO SCH (08:09)
[2020-03-14] MEDS: ENOXAPARIN SODIUM 40 MG/0.4 ML DISP.SYRIN SQ SCH (09:16)
[2020-03-14] MEDS: CLOTRIMAZOLE/BETAMET DIPROP CREAM 15 GM TUBE TP SCH ×2 (09:16→16:24)
[2020-03-14] MEDS: INSULIN REGULAR, HUMAN 300 UNIT/3 ML VIAL SQ PRN ×2 (11:36→21:22)
[2020-03-14 16:00] VITALS: BP 153/43
--- NOTE | 2020-03-14 20:02 | NUR ---
Received pt awake and alert. Reports pain 7/10 in head. Was given dilaudid 4mg and was tolerated well. Will continue to to monitor.
[2020-03-14 20:59] VITALS: BP 122/53
[2020-03-14] MEDS: ATORVASTATIN 40 MG TABLET PO SCH (21:04)
[2020-03-14] MEDS: PANTOPRAZOLE SODIUM 40 MG TABLET.DR PO SCH (21:04)
[2020-03-14] MEDS: FUROSEMIDE 40 MG/4 ML VIAL IV SCH (21:05)
[2020-03-15] MEDS: ACETAMINOPHEN 325 MG TABLET PO PRN (01:13)
[2020-03-15] MEDS: IPRATROPIUM BROMIDE 0.5 MG/2.5 ML NEBU NEB SCH ×4 (01:22→19:31)
[2020-03-15] MEDS: ALBUTEROL SULFATE 1.25 MG/3 ML NEBU NEB SCH ×4 (01:22→19:31)
[2020-03-15] MEDS: VANCOMYCIN IV 1,250 MG in IV DEXTROSE 5% 250 ML IV SCH (01:57)
[2020-03-15] MEDS: GUAIFENESIN/DEXTROMETHORPHAN 5 ML UDC PO PRN ×3 (04:20→17:00)
[2020-03-15] MEDS: HYDROMORPHONE HCL 2 MG TABLET PO PRN ×3 (04:20→17:01)
[2020-03-15] MEDS: MAGNESIUM HYDROXIDE 30 ML LIQUID UDC PO PRN (04:20)
[2020-03-15 05:25] VITALS: BP 125/49
[2020-03-15] MEDS: PREGABALIN 25 MG CAPSULE PO SCH ×3 (06:29→21:00)
[2020-03-15] MEDS: BACLOFEN 10 MG TABLET PO SCH ×3 (06:29→21:00)
[2020-03-15] MEDS: BLOOD SUGAR DIAGNOSTIC 1 EACH STRIP VI SCH ×4 (06:34→21:09)
--- NOTE | 2020-03-15 06:40 | NUR ---
Pt slept intermittently. Reported mild discomfort throughout the night and was given pain meds, tolerated well. Vanco trough was drawn at 0100H and was below 20. All medications given were tolerated well. Pt had a cough that eased after respiratory treatments and cough medication was given. Will endorse to day shift.
[2020-03-15 06:58] LABS: CREATININE 1.1 mg/dL (0.6-1.3); POTASSIUM 3.9 mmol/L (3.5-5.1)
[2020-03-15 07:30] VITALS: BP 129/46
--- NOTE | 2020-03-15 07:44 | NUR ---
RECEIVED PATIENT IN BED ASLEEP BUT EASILY AROUSABLE WHEN TOUCHED OR WHEN NAME IS CALLED SHE IS ALERT AND ORIENTED NO S/S OF PAIN OR DISCOMFORTS AT THIS TIME SHE IS ON O2 AT 2L/M BY NASAL CANULA WITH NO SHORTNESS OF BREATH AT THIS TIME NO S/S OF HYPO/HYPERGLYCEMIC REACTIONS AT THIS TIME CALL LIGHTS TELEPHONE AND ALL HER PERSONAL BELONGINGS ARE WITHIN EASY REACH BLE ELEVATED TO REDUCE SWELLING WILL CONTINUE TO OBSERVE.
[2020-03-15] MEDS: EZETIMIBE 10 MG TABLET PO SCH (08:37)
[2020-03-15] MEDS: glipiZIDE 5 MG TABLET PO SCH ×2 (08:37→17:02)
[2020-03-15] MEDS: CLOPIDOGREL 75 MG TABLET PO SCH (08:38)
[2020-03-15] MEDS: OXYBUTYNIN CHLORIDE 5 MG TABLET PO SCH ×3 (08:38→17:02)
[2020-03-15] MEDS: DOCUSATE SODIUM 100 MG CAPSULE PO SCH ×2 (08:38→17:02)
[2020-03-15] MEDS: FUROSEMIDE 40 MG/4 ML VIAL IV SCH ×3 (08:38→22:50)
[2020-03-15] MEDS: LINAGLIPTIN 5 MG TABLET PO SCH (08:38)
[2020-03-15] MEDS: MIRALAX 17 GM POWD.PACK PO SCH (08:39)
[2020-03-15] MEDS: LABETALOL HCL 200 MG TABLET PO SCH ×2 (08:39→17:02)
[2020-03-15] MEDS: hydrALAZINE HCL 50 MG TABLET PO SCH ×2 (08:39→17:13)
[2020-03-15] MEDS: LIDOCAINE 5% PATCH TD SCH ×2 (08:40)
[2020-03-15] MEDS: PAROXETINE 37.5 MG PO SCH (08:40)
[2020-03-15] MEDS: CLOTRIMAZOLE/BETAMET DIPROP CREAM 15 GM TUBE TP SCH ×2 (08:46→17:13)
[2020-03-15] MEDS: LOSARTAN POTASSIUM 50 MG TABLET PO SCH (09:01)
[2020-03-15] MEDS: ENOXAPARIN SODIUM 40 MG/0.4 ML DISP.SYRIN SQ SCH (09:05)
--- NOTE | 2020-03-15 09:30 | NUR ---
UP AND TAKED TO THE REHAB GYM FOR HER THERAPEUTIC EXERCISES ORDERED
[2020-03-15] MEDS: INSULIN REGULAR, HUMAN 300 UNIT/3 ML VIAL SQ PRN ×2 (12:11→21:16)
[2020-03-15 16:00] VITALS: BP 120/50
[2020-03-15] MEDS ORDERED: IPRATROPIUM BROMIDE 0.5 MG/2.5 ML NEBU NEB PRN (16:30)
[2020-03-15] MEDS ORDERED: hydrALAZINE HCL 25 MG TABLET PO PRN (16:30)
--- NOTE | 2020-03-15 16:30 | NUR ---
DR CUNHA HERE AND SEEN AND EXAMINED PATIENT WITH NEW ORDERS AND NOTED.
[2020-03-15] MEDS ORDERED: CLOTRIMAZOLE 1% CREAM 30 GM TUBE TP SCH (17:00)
[2020-03-15] MEDS ORDERED: OXYBUTYNIN XL 5 MG TABSR PO SCH (17:00)
[2020-03-15] MEDS: FLUTICASONE/VILANTEROL 1 EACH BLST.W.DEV INH SCH (17:30)
--- NOTE | 2020-03-15 18:00 | NUR ---
PATIENT IS IN BED RESTING CONTINUE WITH IVF ORDERED WITH NO S/S OF INFILTERATION ON HER RIGHT AC SITE SHE HAS OCASSIONAL COUGH EPISODES ABLE TO AMBULATE TO AND FROM THE BATHROOM WITH SOBE WIT ADEQUATE SATS WHEN BACK AT REST CALL LIGHTS AND PERSONAL BELONGINGS ARE WITHIN EASY REACH AT THIS TIME WILL CONTINUE TO OBSERVE AND PROVIDE COMFORT.
--- NOTE | 2020-03-15 19:30 | NUR ---
Pt received awake and alert in bed. No signs or symptoms of any acute distress at this time. Pt denies pain currently. On 2L NC. Will continue to monitor.
[2020-03-15 20:37] VITALS: BP 99/49
[2020-03-15] MEDS: PANTOPRAZOLE SODIUM 40 MG TABLET.DR PO SCH (21:00)
[2020-03-15] MEDS: ATORVASTATIN 40 MG TABLET PO SCH (21:00)
--- NOTE | 2020-03-15 22:51 | NUR ---
Lasix was given late due to low BP. BP was rechecked and was 158/48 and Lasix was given. Pt tolerated medication well.
[2020-03-16] MEDS: GUAIFENESIN/DEXTROMETHORPHAN 5 ML UDC PO PRN ×4 (00:39→22:33)
[2020-03-16] MEDS: ACETAMINOPHEN 325 MG TABLET PO PRN ×2 (00:45→19:40)
[2020-03-16] MEDS: IPRATROPIUM BROMIDE 0.5 MG/2.5 ML NEBU NEB SCH ×4 (01:15→19:43)
[2020-03-16] MEDS: ALBUTEROL SULFATE 1.25 MG/3 ML NEBU NEB SCH ×4 (01:16→19:43)
[2020-03-16] MEDS: HYDROMORPHONE HCL 2 MG TABLET PO PRN ×4 (02:10→22:34)
[2020-03-16 04:09] VITALS: BP 149/50
[2020-03-16 05:59] LABS: BASOPHILS # (AUTO) 0.1 K/uL (0.0-8.0); BASOPHILS % (AUTO) 0.8 % (0.0-2.0); EOSINOPHILS # (AUTO) 0.2 K/uL (0.0-0.7); EOSINOPHILS % (AUTO) 2.7 % (0.0-7.0); HEMATOCRIT 23.7 % (31.2-41.9); HEMOGLOBIN 8.1 g/dL (10.9-14.3); LYMPHOCYTES # (AUTO) 1.2 K/uL (20.0-40.0); LYMPHOCYTES % (AUTO) 14.5 % (20.5-51.5); MEAN CORPUSCULAR HEMOGLOBIN 28.7 uug (24.7-32.8); MEAN CORPUSCULAR HGB CONC 34 g/dL (32.3-35.6); MEAN CORPUSCULAR VOLUME 84.3 fL (75.5-95.3); MONOCYTES % (AUTO) 12.5 % (0.0-11.0); NEUTROPHILS # (AUTO) 5.6 K/uL (1.8-8.9); NEUTROPHILS % (AUTO) 69.5 % (38.5-71.5); PLATELET COUNT (AUTO) 268 K/uL (179-408); RED BLOOD CELL COUNT(AUTO) 2.81 MIL/uL (3.63-4.92); WHITE BLOOD COUNT (AUTO) 8.1 K/uL (3.8-11.8)
[2020-03-16] MEDS: PREGABALIN 25 MG CAPSULE PO SCH ×3 (06:04→21:04)
[2020-03-16 06:05] LABS: MAGNESIUM 2.2 mg/dL (1.8-2.4); PHOSPHOROUS 4.2 mg/dL (2.5-4.9); POTASSIUM 4.2 mmol/L (3.5-5.1)
--- NOTE | 2020-03-16 06:29 | NUR ---
Pt slept intermittently throughout the night. Cough was better tonight. Denies any SOB or chest pain. Pt is on 2L sating at 98%. No acute distress noted at this time. Safety and comfort provided. Will endorse to day shift.
[2020-03-16] MEDS: BLOOD SUGAR DIAGNOSTIC 1 EACH STRIP VI SCH ×4 (06:53→21:01)
--- NOTE | 2020-03-16 07:30 | NUR ---
Received patient sitting up in wheelchair, awake alert and oriented times 4. No sign of distress noted at this time. Safety precautions are in place. Will continue to monitor.
[2020-03-16 07:45] VITALS: BP 169/58
[2020-03-16] MEDS: PAROXETINE 37.5 MG PO SCH (08:54)
[2020-03-16] MEDS: LIDOCAINE 5% PATCH TD SCH ×2 (08:54→09:07)
[2020-03-16] MEDS: MIRALAX 17 GM POWD.PACK PO SCH (08:54)
[2020-03-16] MEDS: DOCUSATE SODIUM 100 MG CAPSULE PO SCH ×2 (08:55→17:40)
[2020-03-16] MEDS: glipiZIDE 5 MG TABLET PO SCH ×2 (08:55→17:40)
[2020-03-16] MEDS: BACLOFEN 20 MG TABLET PO SCH ×3 (08:55→17:40)
[2020-03-16] MEDS: LINAGLIPTIN 5 MG TABLET PO SCH (08:55)
[2020-03-16] MEDS: OXYBUTYNIN XL 5 MG TABSR PO SCH (08:55)
[2020-03-16] MEDS: ASPIRIN 81 MG TAB.CHEW PO SCH (08:56)
[2020-03-16] MEDS: LABETALOL HCL 200 MG TABLET PO SCH ×2 (08:57→17:53)
[2020-03-16] MEDS: hydrALAZINE HCL 50 MG TABLET PO SCH ×2 (08:57→17:53)
[2020-03-16] MEDS: FLUTICASONE/VILANTEROL 1 EACH BLST.W.DEV INH SCH (08:58)
[2020-03-16] MEDS: LOSARTAN POTASSIUM 50 MG TABLET PO SCH (08:58)
[2020-03-16] MEDS: CLOPIDOGREL 75 MG TABLET PO SCH (08:58)
[2020-03-16] MEDS: CLOTRIMAZOLE/BETAMET DIPROP CREAM 15 GM TUBE TP SCH ×2 (08:59→17:53)
[2020-03-16] MEDS: EZETIMIBE 10 MG TABLET PO SCH (09:05)
[2020-03-16] MEDS: FUROSEMIDE 40 MG/4 ML VIAL IV SCH ×2 (09:05→20:51)
[2020-03-16] MEDS: ENOXAPARIN SODIUM 40 MG/0.4 ML DISP.SYRIN SQ SCH (09:07)
[2020-03-16] MEDS ORDERED: hydrALAZINE HCL 25 MG TABLET PO PRN (10:30)
[2020-03-16 11:12] LABS: BILIRUBIN,DIRECT 0.1 mg/dL (0.0-0.2); BILIRUBIN,TOTAL 0.5 mg/dL (0.2-1.0); TOTAL PROTEIN, SERUM 6.2 g/dL (6.4-8.2)
--- NOTE | 2020-03-16 12:29 | NUR ---
WOUND CARE CONSULT: PT PRESENTS WITH REDNESS, EDEMA AND DRY WOUND TO LEFT LOWER LEG, PRESENT ON ADMISSION. RECOMMEND DPM CONSULT. DR TEIXEIRA NOTIFIED OF CONSULT REQUEST. PT IS AMBULATORY WITH ASSISTANCE AND WALKER BUT IS INCONTINENT AT TIMES. RECOMMENDATIONS MADE FOR SKIN PROTECTION. DISCUSSED WITH NURSING STAFF. MD IN AGREEMENT WITH PLAN OF CARE.
[2020-03-16] MEDS: INSULIN REGULAR, HUMAN 300 UNIT/3 ML VIAL SQ PRN ×3 (12:36→21:11)
--- NOTE | 2020-03-16 16:30 | NUR ---
Scanned Dilaudid PO and Robitussin and later realized that they did not go through. Medications given to patient after coming back from therapy.
--- NOTE | 2020-03-16 16:39 | NUR ---
Pt with rehab. Will do venous dopp tmrw AM
--- NOTE | 2020-03-16 19:13 | NUR ---
Patient is resting in her chair. she said she has a productive cough. Gave a a collection container to collect specimen. All medications given as ordered. Safety precautions in place with call light and belongings within reach. will endorse to oncoming nurse.
[2020-03-16 20:39] VITALS: BP 156/61
[2020-03-16] MEDS: ATORVASTATIN 10 MG TABLET PO SCH (20:50)
[2020-03-16] MEDS: PANTOPRAZOLE SODIUM 40 MG TABLET.DR PO SCH (20:51)
--- NOTE | 2020-03-17 00:13 | NUR ---
OOB in chair when received. AAOx4 Patient very needy. On pain management. Patient receiving Dilaudid 4mg po q6hrs PRN plus cough medicine q6 hrs PRN also. Patient all due meds given without any difficulty. Incontinent of urine and BM, no BM noted this shift. Kept clean and dry. Will monitor patient. VSS. On telemetry, patient Sinus rhythm No complaints of chest pain or chest discomfort. Respiratory treatments given as needed. Accucheck 159. Fluid restrictions maintained. Patient non compliant.
[2020-03-17] MEDS: IPRATROPIUM BROMIDE 0.5 MG/2.5 ML NEBU NEB SCH ×4 (01:42→19:20)
[2020-03-17] MEDS: ALBUTEROL SULFATE 1.25 MG/3 ML NEBU NEB SCH ×4 (01:43→19:20)
[2020-03-17] MEDS: PREGABALIN 25 MG CAPSULE PO SCH ×3 (05:36→21:51)
[2020-03-17] MEDS: BLOOD SUGAR DIAGNOSTIC 1 EACH STRIP VI SCH ×4 (06:32→21:41)
--- NOTE | 2020-03-17 07:00 | NUR ---
End of shift notes: Quiet night. Slept well most of the shift. Needs attended. Accucheck 100. Will monitor patient.
[2020-03-17 07:18] LABS: CREATININE 0.9 mg/dL (0.6-1.3); POTASSIUM 3.9 mmol/L (3.5-5.1)
--- NOTE | 2020-03-17 07:20 | NUR ---
Received patient resting in bed awake alert and oriented times 4. No sign of distress noted at this time. Safety precautions are in place with call light and belongings within reach. Will continue to monitor.
[2020-03-17] MEDS: LIDOCAINE 5% PATCH TD SCH ×2 (08:34→08:40)
[2020-03-17] MEDS: MIRALAX 17 GM POWD.PACK PO SCH (08:34)
[2020-03-17] MEDS: ASPIRIN 81 MG TAB.CHEW PO SCH (08:35)
[2020-03-17] MEDS: CLOPIDOGREL 75 MG TABLET PO SCH (08:35)
[2020-03-17] MEDS: FUROSEMIDE 40 MG/4 ML VIAL IV SCH ×2 (08:35→21:30)
[2020-03-17] MEDS: BACLOFEN 20 MG TABLET PO SCH ×3 (08:35→17:05)
[2020-03-17] MEDS: DOCUSATE SODIUM 100 MG CAPSULE PO SCH ×2 (08:35→17:05)
[2020-03-17] MEDS: LINAGLIPTIN 5 MG TABLET PO SCH (08:35)
[2020-03-17] MEDS: glipiZIDE 5 MG TABLET PO SCH ×2 (08:35→17:06)
[2020-03-17] MEDS: OXYBUTYNIN XL 5 MG TABSR PO SCH (08:35)
[2020-03-17] MEDS: HYDROMORPHONE HCL 2 MG TABLET PO PRN ×2 (08:36→17:06)
[2020-03-17] MEDS: ENOXAPARIN SODIUM 40 MG/0.4 ML DISP.SYRIN SQ SCH ×2 (08:36→09:00)
[2020-03-17] MEDS: PAROXETINE 37.5 MG PO SCH (08:39)
[2020-03-17] MEDS: FLUTICASONE/VILANTEROL 1 EACH BLST.W.DEV INH SCH (08:39)
[2020-03-17] MEDS: TRIAMCINOLONE ACET 0.025% LOT 60 ML BOTTLE TOP SCH (08:40)
[2020-03-17] MEDS: CLOTRIMAZOLE/BETAMET DIPROP CREAM 15 GM TUBE TP SCH ×2 (08:40→17:08)
[2020-03-17] MEDS: hydrALAZINE HCL 50 MG TABLET PO SCH ×2 (08:50→09:00)
[2020-03-17] MEDS: LABETALOL HCL 200 MG TABLET PO SCH ×2 (08:50→17:08)
[2020-03-17] MEDS: LOSARTAN POTASSIUM 50 MG TABLET PO SCH (09:00)
[2020-03-17] MEDS: GUAIFENESIN/DEXTROMETHORPHAN 5 ML UDC PO PRN ×2 (09:00→17:06)
--- NOTE | 2020-03-17 09:10 | NUR ---
Patient was bleeding at the injection site. Despite the application of dressing the patient bled through it onto her diaper. Will make MD aware. Will continue to monitor.
--- NOTE | 2020-03-17 10:51 | NUR ---
CLAIMS SUPERVISOR Cristopher in patient room reinforcing need for 1000 ml fluid restriction per day . 500 in the am shift and 500 in pm. Will continue to monitor.
[2020-03-17 12:14] VITALS: BP 123/49
[2020-03-17] MEDS: INSULIN REGULAR, HUMAN 300 UNIT/3 ML VIAL SQ PRN ×2 (12:28→21:44)
[2020-03-17 15:28] VITALS: BP 127/97
[2020-03-17] MEDS: levoFLOXacin 500 MG TABLET PO SCH (17:05)
[2020-03-17] MEDS: hydrALAZINE HCL 25 MG TABLET PO SCH (17:07)
[2020-03-17] MEDS: NYSTATIN SUSPENSION 5 ML LIQUID UDC PO SCH ×2 (17:22→21:46)
--- NOTE | 2020-03-17 18:46 | NUR ---
Patient is resting in her chair. No sign of distress noted at this time. All medications given as ordered. Safety precautions in place with call light and belongings within reach. will endorse to oncoming nurse.
--- NOTE | 2020-03-17 19:45 | NUR ---
Awake, up in a wheelchair in her room. No s/s of pain/discomforts noted. With continuous O2 at 2L/min via NC. No s/s of respiratory distress noted. Safety measures and fall prevention maintained. Continue care as planned.
[2020-03-17 21:23] VITALS: BP 131/42
[2020-03-17] MEDS: ATORVASTATIN 10 MG TABLET PO SCH (21:30)
[2020-03-17] MEDS: PANTOPRAZOLE SODIUM 40 MG TABLET.DR PO SCH (21:30)
[2020-03-18] MEDS: ALBUTEROL SULFATE 1.25 MG/3 ML NEBU NEB SCH ×4 (00:30→19:42)
[2020-03-18] MEDS: IPRATROPIUM BROMIDE 0.5 MG/2.5 ML NEBU NEB SCH ×4 (00:30→19:42)
[2020-03-18] MEDS: PREGABALIN 25 MG CAPSULE PO SCH ×3 (05:23→22:06)
[2020-03-18 06:14] VITALS: BP 191/63
[2020-03-18] MEDS: GUAIFENESIN/DEXTROMETHORPHAN 5 ML UDC PO PRN ×3 (06:15→20:53)
[2020-03-18] MEDS: HYDROMORPHONE HCL 2 MG TABLET PO PRN ×3 (06:22→20:54)
[2020-03-18] MEDS: BLOOD SUGAR DIAGNOSTIC 1 EACH STRIP VI SCH ×4 (06:23→20:58)
[2020-03-18 06:26] VITALS: BP 143/65
--- NOTE | 2020-03-18 06:29 | NUR ---
BP rechecked 143/65. Patient denies any s/s of HTN. Resting quietly after being cleaned up.
[2020-03-18 08:00] VITALS: BP 130/67
[2020-03-18] MEDS: levoFLOXacin 500 MG TABLET PO SCH (08:09)
[2020-03-18] MEDS: MIRALAX 17 GM POWD.PACK PO SCH (08:09)
[2020-03-18] MEDS: LIDOCAINE 5% PATCH TD SCH ×2 (08:09)
[2020-03-18] MEDS: DOCUSATE SODIUM 100 MG CAPSULE PO SCH ×2 (08:10→16:44)
[2020-03-18] MEDS: ASPIRIN 81 MG TAB.CHEW PO SCH (08:10)
[2020-03-18] MEDS: glipiZIDE 5 MG TABLET PO SCH ×2 (08:10→17:30)
[2020-03-18] MEDS: OXYBUTYNIN XL 5 MG TABSR PO SCH (08:10)
[2020-03-18] MEDS: LABETALOL HCL 200 MG TABLET PO SCH ×2 (08:10→16:44)
[2020-03-18] MEDS: BACLOFEN 20 MG TABLET PO SCH ×3 (08:10→16:44)
[2020-03-18] MEDS: hydrALAZINE HCL 25 MG TABLET PO SCH ×2 (08:10→16:44)
[2020-03-18] MEDS: CLOPIDOGREL 75 MG TABLET PO SCH (08:10)
[2020-03-18] MEDS: LINAGLIPTIN 5 MG TABLET PO SCH (08:10)
[2020-03-18] MEDS: ENOXAPARIN SODIUM 40 MG/0.4 ML DISP.SYRIN SQ SCH (08:11)
[2020-03-18] MEDS: FUROSEMIDE 40 MG/4 ML VIAL IV SCH ×2 (08:16→20:54)
[2020-03-18] MEDS: PAROXETINE 37.5 MG PO SCH (09:31)
[2020-03-18] MEDS: FLUTICASONE/VILANTEROL 1 EACH BLST.W.DEV INH SCH (09:31)
[2020-03-18] MEDS: TRIAMCINOLONE ACET 0.025% LOT 60 ML BOTTLE TOP SCH (09:32)
[2020-03-18] MEDS: NYSTATIN SUSPENSION 5 ML LIQUID UDC PO SCH ×4 (09:32→21:12)
[2020-03-18] MEDS: CLOTRIMAZOLE/BETAMET DIPROP CREAM 15 GM TUBE TP SCH ×2 (09:33→17:30)
[2020-03-18] MEDS: LOSARTAN POTASSIUM 50 MG TABLET PO SCH (09:36)
[2020-03-18] MEDS: INSULIN REGULAR, HUMAN 300 UNIT/3 ML VIAL SQ PRN ×2 (12:00→21:02)
[2020-03-18 16:00] VITALS: BP 131/38
[2020-03-18] MEDS: ACETAMINOPHEN 325 MG TABLET PO PRN (16:44)
[2020-03-18] MEDS: PANTOPRAZOLE SODIUM 40 MG TABLET.DR PO SCH (20:54)
[2020-03-18] MEDS: ATORVASTATIN 10 MG TABLET PO SCH (20:55)
[2020-03-18 21:28] VITALS: BP 152/56
[2020-03-19] MEDS: ALBUTEROL SULFATE 1.25 MG/3 ML NEBU NEB SCH ×4 (00:30→21:06)
[2020-03-19] MEDS: IPRATROPIUM BROMIDE 0.5 MG/2.5 ML NEBU NEB SCH ×4 (00:30→21:06)
[2020-03-19] MEDS: HYDROMORPHONE HCL 2 MG TABLET PO PRN ×4 (02:59→21:11)
[2020-03-19] MEDS: GUAIFENESIN/DEXTROMETHORPHAN 5 ML UDC PO PRN ×3 (03:03→17:27)
--- NOTE | 2020-03-19 03:07 | NUR ---
Nurse on break, pt requested Dilaudid PRN for 8/10 head pain and Robitussin for her cough PRN., administered.
[2020-03-19] MEDS: ACETAMINOPHEN 325 MG TABLET PO PRN ×2 (04:43→11:11)
[2020-03-19 05:21] VITALS: BP 155/48
[2020-03-19] MEDS: PREGABALIN 25 MG CAPSULE PO SCH ×4 (05:27→22:31)
[2020-03-19] MEDS: BLOOD SUGAR DIAGNOSTIC 1 EACH STRIP VI SCH ×3 (05:34→17:36)
[2020-03-19 06:21] LABS: BASOPHILS # (AUTO) 0.1 K/uL (0.0-8.0); BASOPHILS % (AUTO) 0.9 % (0.0-2.0); EOSINOPHILS # (AUTO) 0.2 K/uL (0.0-0.7); EOSINOPHILS % (AUTO) 3.3 % (0.0-7.0); HEMATOCRIT 24.5 % (31.2-41.9); HEMOGLOBIN 8.2 g/dL (10.9-14.3); LYMPHOCYTES # (AUTO) 1.6 K/uL (20.0-40.0); LYMPHOCYTES % (AUTO) 21.1 % (20.5-51.5); MEAN CORPUSCULAR HEMOGLOBIN 28.4 uug (24.7-32.8); MEAN CORPUSCULAR HGB CONC 34 g/dL (32.3-35.6); MEAN CORPUSCULAR VOLUME 84.6 fL (75.5-95.3); MONOCYTES # (AUTO) 0.9 K/uL (2.0-10.0); MONOCYTES % (AUTO) 12.3 % (0.0-11.0); NEUTROPHILS # (AUTO) 4.6 K/uL (1.8-8.9); NEUTROPHILS % (AUTO) 62.4 % (38.5-71.5); PLATELET COUNT (AUTO) 294 K/uL (179-408); WHITE BLOOD COUNT (AUTO) 7.4 K/uL (3.8-11.8)
[2020-03-19 06:32] LABS: BILIRUBIN,TOTAL 0.6 mg/dL (0.2-1.0); CREATININE 0.9 mg/dL (0.6-1.3); MAGNESIUM 2.5 mg/dL (1.8-2.4); PHOSPHOROUS 3.7 mg/dL (2.5-4.9); POTASSIUM 3.7 mmol/L (3.5-5.1); TOTAL PROTEIN, SERUM 6.3 g/dL (6.4-8.2)
[2020-03-19 07:59] VITALS: BP 148/55
[2020-03-19] MEDS: CLOPIDOGREL 75 MG TABLET PO SCH (08:50)
[2020-03-19] MEDS: BACLOFEN 20 MG TABLET PO SCH ×3 (08:50→17:29)
[2020-03-19] MEDS: LINAGLIPTIN 5 MG TABLET PO SCH (08:51)
[2020-03-19] MEDS: OXYBUTYNIN XL 5 MG TABSR PO SCH (08:51)
[2020-03-19] MEDS: levoFLOXacin 500 MG TABLET PO SCH (08:51)
[2020-03-19] MEDS: ASPIRIN 81 MG TAB.CHEW PO SCH (08:51)
[2020-03-19] MEDS: glipiZIDE 5 MG TABLET PO SCH ×2 (08:51→17:28)
[2020-03-19] MEDS: hydrALAZINE HCL 25 MG TABLET PO SCH ×2 (08:52→17:00)
[2020-03-19] MEDS: DOCUSATE SODIUM 100 MG CAPSULE PO SCH ×2 (08:52→17:28)
[2020-03-19] MEDS: LOSARTAN POTASSIUM 50 MG TABLET PO SCH (08:53)
[2020-03-19] MEDS: MIRALAX 17 GM POWD.PACK PO SCH (08:54)
[2020-03-19] MEDS: TRIAMCINOLONE ACET 0.025% LOT 60 ML BOTTLE TOP SCH (09:00)
[2020-03-19] MEDS: CLOTRIMAZOLE/BETAMET DIPROP CREAM 15 GM TUBE TP SCH ×2 (09:00→17:00)
[2020-03-19] MEDS: PAROXETINE 37.5 MG PO SCH (09:05)
[2020-03-19] MEDS: LIDOCAINE 5% PATCH TD SCH ×2 (09:06)
[2020-03-19] MEDS: FLUTICASONE/VILANTEROL 1 EACH BLST.W.DEV INH SCH (09:09)
[2020-03-19] MEDS: ENOXAPARIN SODIUM 40 MG/0.4 ML DISP.SYRIN SQ SCH (09:20)
[2020-03-19] MEDS: FUROSEMIDE 40 MG/4 ML VIAL IV SCH ×2 (09:30→21:04)
[2020-03-19] MEDS: NYSTATIN SUSPENSION 5 ML LIQUID UDC PO SCH ×4 (09:30→21:05)
[2020-03-19] MEDS: LABETALOL HCL 200 MG TABLET PO SCH ×2 (09:32→17:00)
[2020-03-19 15:00] VITALS: BP 97/50
[2020-03-19 20:00] VITALS: BP 157/52
[2020-03-19] MEDS: PANTOPRAZOLE SODIUM 40 MG TABLET.DR PO SCH (21:04)
[2020-03-19] MEDS: ATORVASTATIN 10 MG TABLET PO SCH (21:04)
[2020-03-19] MEDS: FLUTICASONE PROP NASAL SPRAY 16 GM BOTTLE NS SCH (21:08)
[2020-03-20] MEDS: ALBUTEROL SULFATE 1.25 MG/3 ML NEBU NEB SCH ×4 (01:30→20:45)
[2020-03-20] MEDS: IPRATROPIUM BROMIDE 0.5 MG/2.5 ML NEBU NEB SCH ×4 (01:30→20:45)
[2020-03-20] MEDS: GUAIFENESIN/DEXTROMETHORPHAN 5 ML UDC PO PRN ×3 (05:19→16:58)
[2020-03-20] MEDS: HYDROMORPHONE HCL 2 MG TABLET PO PRN ×3 (05:19→16:59)
[2020-03-20] MEDS: PREGABALIN 25 MG CAPSULE PO SCH ×3 (06:03→21:05)
[2020-03-20 06:04] VITALS: BP 148/53
[2020-03-20 07:30] VITALS: BP 153/68
[2020-03-20] MEDS: ENOXAPARIN SODIUM 40 MG/0.4 ML DISP.SYRIN SQ SCH (09:00)
[2020-03-20] MEDS: TOLTERODINE LA 2 MG CAP.SR.24H PO SCH (10:06)
[2020-03-20] MEDS: levoFLOXacin 500 MG TABLET PO SCH (10:06)
[2020-03-20] MEDS: LABETALOL HCL 200 MG TABLET PO SCH ×2 (10:07→17:00)
[2020-03-20] MEDS: LINAGLIPTIN 5 MG TABLET PO SCH (10:07)
[2020-03-20] MEDS: CLOPIDOGREL 75 MG TABLET PO SCH (10:07)
[2020-03-20] MEDS: ASPIRIN 81 MG TAB.CHEW PO SCH (10:07)
[2020-03-20] MEDS: LOSARTAN POTASSIUM 50 MG TABLET PO SCH (10:07)
[2020-03-20] MEDS: LIDOCAINE 5% PATCH TD SCH ×2 (10:08→10:10)
[2020-03-20] MEDS: FUROSEMIDE 40 MG/4 ML VIAL IV SCH ×2 (10:08→21:05)
[2020-03-20] MEDS: glipiZIDE 5 MG TABLET PO SCH ×2 (10:08→17:00)
[2020-03-20] MEDS: DOCUSATE SODIUM 100 MG CAPSULE PO SCH ×2 (10:08→17:00)
[2020-03-20] MEDS: FLUTICASONE/VILANTEROL 1 EACH BLST.W.DEV INH SCH (10:09)
[2020-03-20] MEDS: PAROXETINE 37.5 MG PO SCH (10:11)
[2020-03-20] MEDS: BACLOFEN 20 MG TABLET PO SCH ×3 (10:11→17:00)
[2020-03-20] MEDS: MIRALAX 17 GM POWD.PACK PO SCH (10:12)
[2020-03-20] MEDS: NYSTATIN SUSPENSION 5 ML LIQUID UDC PO SCH ×4 (10:14→21:06)
[2020-03-20] MEDS: TRIAMCINOLONE ACET 0.025% LOT 60 ML BOTTLE TOP SCH (13:16)
[2020-03-20] MEDS: FLUTICASONE PROP NASAL SPRAY 16 GM BOTTLE NS SCH (13:16)
[2020-03-20] MEDS: CLOTRIMAZOLE/BETAMET DIPROP CREAM 15 GM TUBE TP SCH ×2 (13:17→17:09)
[2020-03-20] MEDS: ACETAMINOPHEN 325 MG TABLET PO PRN (14:12)
[2020-03-20 16:00] VITALS: BP 115/46
[2020-03-20] MEDS ORDERED: DEXTROSE 50% 50 ML DISP.SYRIN IV PRN (18:45)
[2020-03-20 20:00] VITALS: BP 113/58
[2020-03-20] MEDS: ATORVASTATIN 10 MG TABLET PO SCH (21:05)
[2020-03-20] MEDS: PANTOPRAZOLE SODIUM 40 MG TABLET.DR PO SCH (21:05)
[2020-03-21] MEDS: GUAIFENESIN/DEXTROMETHORPHAN 5 ML UDC PO PRN ×4 (01:05→19:05)
[2020-03-21] MEDS: HYDROMORPHONE HCL 2 MG TABLET PO PRN ×4 (01:06→19:05)
[2020-03-21] MEDS: ALBUTEROL SULFATE 1.25 MG/3 ML NEBU NEB SCH ×4 (01:30→20:53)
[2020-03-21] MEDS: IPRATROPIUM BROMIDE 0.5 MG/2.5 ML NEBU NEB SCH ×4 (01:30→20:53)
[2020-03-21 04:00] VITALS: BP_SYST 123
--- NOTE | 2020-03-21 04:28 | NUR ---
awake alert and oriented x4 Needs attended. All due meds given as ordered. Medicated for pain as needed. Incontinent of urine x2 Kept clean and dry. No acute distress noted. Will monitor patient. VSS.
[2020-03-21] MEDS: PREGABALIN 25 MG CAPSULE PO SCH ×3 (05:53→21:09)
[2020-03-21] MEDS: ACETAMINOPHEN 325 MG TABLET PO PRN ×2 (06:01→18:12)
[2020-03-21] MEDS: BLOOD SUGAR DIAGNOSTIC 1 EACH STRIP VI SCH ×4 (06:39→21:10)
--- NOTE | 2020-03-21 07:06 | NUR ---
End of shift notes: Medicated with Dilaudid 4mg plus Robitussin given. No distress noted. Kept comfortable. VSS.Incontinent of urine x2. Kept clean and dry.
[2020-03-21 07:51] LABS: CREATININE 0.8 mg/dL (0.6-1.3); MAGNESIUM 2.5 mg/dL (1.8-2.4); POTASSIUM 3.8 mmol/L (3.5-5.1)
[2020-03-21 07:59] LABS: BASOPHILS # (AUTO) 0.1 K/uL (0.0-8.0); BASOPHILS % (AUTO) 1.3 % (0.0-2.0); EOSINOPHILS # (AUTO) 0.2 K/uL (0.0-0.7); EOSINOPHILS % (AUTO) 3.5 % (0.0-7.0); HEMATOCRIT 25.6 % (31.2-41.9); HEMOGLOBIN 8.7 g/dL (10.9-14.3); LYMPHOCYTES # (AUTO) 1.5 K/uL (20.0-40.0); LYMPHOCYTES % (AUTO) 21.5 % (20.5-51.5); MEAN CORPUSCULAR HEMOGLOBIN 28.5 uug (24.7-32.8); MEAN CORPUSCULAR HGB CONC 34 g/dL (32.3-35.6); MEAN CORPUSCULAR VOLUME 83.8 fL (75.5-95.3); MONOCYTES # (AUTO) 0.8 K/uL (2.0-10.0); MONOCYTES % (AUTO) 10.9 % (0.0-11.0); NEUTROPHILS # (AUTO) 4.5 K/uL (1.8-8.9); NEUTROPHILS % (AUTO) 62.8 % (38.5-71.5); PLATELET COUNT (AUTO) 323 K/uL (179-408); RED BLOOD CELL COUNT(AUTO) 3.06 MIL/uL (3.63-4.92); WHITE BLOOD COUNT (AUTO) 7.1 K/uL (3.8-11.8)
[2020-03-21 08:08] VITALS: BP 157/52
[2020-03-21] MEDS: TRIAMCINOLONE ACET 0.025% LOT 60 ML BOTTLE TOP SCH (09:00)
[2020-03-21] MEDS: FLUTICASONE/VILANTEROL 1 EACH BLST.W.DEV INH SCH (11:10)
[2020-03-21] MEDS: LIDOCAINE 5% PATCH TD SCH ×2 (11:11)
[2020-03-21] MEDS: MIRALAX 17 GM POWD.PACK PO SCH (11:12)
[2020-03-21] MEDS: FLUTICASONE PROP NASAL SPRAY 16 GM BOTTLE NS SCH (11:12)
[2020-03-21] MEDS: ASPIRIN 81 MG TAB.CHEW PO SCH (11:13)
[2020-03-21] MEDS: LOSARTAN POTASSIUM 50 MG TABLET PO SCH (11:13)
[2020-03-21] MEDS: DOCUSATE SODIUM 100 MG CAPSULE PO SCH ×2 (11:13→17:49)
[2020-03-21] MEDS: FUROSEMIDE 40 MG/4 ML VIAL IV SCH ×2 (11:13→21:11)
[2020-03-21] MEDS: LABETALOL HCL 200 MG TABLET PO SCH ×2 (11:14→17:48)
[2020-03-21] MEDS: LINAGLIPTIN 5 MG TABLET PO SCH (11:14)
[2020-03-21] MEDS: TOLTERODINE LA 2 MG CAP.SR.24H PO SCH (11:15)
[2020-03-21] MEDS: glipiZIDE 5 MG TABLET PO SCH ×2 (11:15→17:47)
[2020-03-21] MEDS: levoFLOXacin 500 MG TABLET PO SCH (11:15)
[2020-03-21] MEDS: CLOPIDOGREL 75 MG TABLET PO SCH (11:15)
[2020-03-21] MEDS: BACLOFEN 20 MG TABLET PO SCH ×3 (11:16→17:48)
[2020-03-21] MEDS: ENOXAPARIN SODIUM 40 MG/0.4 ML DISP.SYRIN SQ SCH (11:18)
[2020-03-21] MEDS: PAROXETINE 37.5 MG PO SCH (11:19)
[2020-03-21] MEDS: NYSTATIN SUSPENSION 5 ML LIQUID UDC PO SCH ×4 (11:20→21:10)
[2020-03-21] MEDS: CLOTRIMAZOLE/BETAMET DIPROP CREAM 15 GM TUBE TP SCH ×2 (11:21→17:51)
[2020-03-21 16:25] VITALS: BP 150/58
[2020-03-21 20:11] VITALS: BP 125/50
[2020-03-21] MEDS: ATORVASTATIN 10 MG TABLET PO SCH (21:09)
[2020-03-21] MEDS: PANTOPRAZOLE SODIUM 40 MG TABLET.DR PO SCH (21:09)
[2020-03-21] MEDS: INSULIN REGULAR, HUMAN 300 UNIT/3 ML VIAL SQ PRN (21:12)
--- NOTE | 2020-03-21 22:11 | NUR ---
Received pt resting in bed. AAO x3-4. On 2L O2 via NC, no acute distress noted. Pt received her breathing treatment. Denies pain/discomfort. Due meds given as ordered. Accucheck 174, insulin coverage as per sliding scale. Snack given. Pt on fluid restriction 1,000mL/ day. Noted non- productive cough. Right upper arm midline, patent and intact. Safety measures maintained. Call light and personal items within reach. Will continue to monitor.
[2020-03-22] MEDS: ACETAMINOPHEN 325 MG TABLET PO PRN ×2 (00:12→18:39)
[2020-03-22] MEDS: ALBUTEROL SULFATE 1.25 MG/3 ML NEBU NEB SCH ×4 (01:09→19:45)
[2020-03-22] MEDS: IPRATROPIUM BROMIDE 0.5 MG/2.5 ML NEBU NEB SCH ×4 (01:09→19:45)
[2020-03-22] MEDS: GUAIFENESIN/DEXTROMETHORPHAN 5 ML UDC PO PRN ×3 (03:16→15:59)
[2020-03-22] MEDS: HYDROMORPHONE HCL 2 MG TABLET PO PRN ×3 (03:16→15:41)
[2020-03-22] MEDS: CLONIDINE HCL 0.1 MG TABLET PO PRN (04:44)
[2020-03-22 04:51] VITALS: BP 167/58
[2020-03-22] MEDS: PREGABALIN 25 MG CAPSULE PO SCH ×3 (05:00→21:20)
[2020-03-22] MEDS: BLOOD SUGAR DIAGNOSTIC 1 EACH STRIP VI SCH ×4 (06:31→21:15)
[2020-03-22 08:00] VITALS: BP 117/63
[2020-03-22] MEDS: PAROXETINE 37.5 MG PO SCH (09:00)
[2020-03-22] MEDS: glipiZIDE 5 MG TABLET PO SCH ×2 (09:30→17:29)
[2020-03-22] MEDS: BACLOFEN 20 MG TABLET PO SCH ×3 (09:34→17:29)
[2020-03-22] MEDS: levoFLOXacin 500 MG TABLET PO SCH (09:34)
[2020-03-22] MEDS: ASPIRIN 81 MG TAB.CHEW PO SCH (09:34)
[2020-03-22] MEDS: DOCUSATE SODIUM 100 MG CAPSULE PO SCH ×2 (09:34→17:29)
[2020-03-22] MEDS: TOLTERODINE LA 2 MG CAP.SR.24H PO SCH (09:34)
[2020-03-22] MEDS: LINAGLIPTIN 5 MG TABLET PO SCH (09:34)
[2020-03-22] MEDS: FUROSEMIDE 40 MG/4 ML VIAL IV SCH ×2 (09:35→21:33)
[2020-03-22] MEDS: CLOPIDOGREL 75 MG TABLET PO SCH (09:35)
[2020-03-22] MEDS: FLUTICASONE/VILANTEROL 1 EACH BLST.W.DEV INH SCH (09:39)
[2020-03-22] MEDS: FLUTICASONE PROP NASAL SPRAY 16 GM BOTTLE NS SCH (09:39)
--- NOTE | 2020-03-22 10:30 | NUR ---
Patient states that she will have family member bring her home medication paroxetine. Medication not available at this time.
[2020-03-22] MEDS: CLOTRIMAZOLE/BETAMET DIPROP CREAM 15 GM TUBE TP SCH ×2 (10:57→17:30)
[2020-03-22] MEDS: MIRALAX 17 GM POWD.PACK PO SCH (10:57)
[2020-03-22] MEDS: NYSTATIN SUSPENSION 5 ML LIQUID UDC PO SCH ×2 (10:57→13:58)
[2020-03-22] MEDS: LIDOCAINE 5% PATCH TD SCH ×2 (10:57)
[2020-03-22] MEDS: ENOXAPARIN SODIUM 40 MG/0.4 ML DISP.SYRIN SQ SCH (10:58)
[2020-03-22] MEDS: LOSARTAN POTASSIUM 50 MG TABLET PO SCH (11:05)
[2020-03-22] MEDS: LABETALOL HCL 200 MG TABLET PO SCH ×2 (11:06→17:00)
[2020-03-22] MEDS: TRIAMCINOLONE ACET 0.025% LOT 60 ML BOTTLE TOP SCH (11:25)
[2020-03-22] MEDS: INSULIN REGULAR, HUMAN 300 UNIT/3 ML VIAL SQ PRN ×2 (11:39→21:16)
[2020-03-22 16:00] VITALS: BP 123/43
--- NOTE | 2020-03-22 18:32 | NUR ---
Patient seen by Dr. Monreal and gave an order for Lidoderm patch apply topically on the posterior neck.
--- NOTE | 2020-03-22 19:39 | NUR ---
Informed Dr. Espana who is in the unit regarding patient's complain of episode of bleeding on the injection site of Lovenox and patient's request of discontinuing medication. MD ordered to discontinue Lovenox. Endorsed accordingly to restaurant shift leader nurse.
[2020-03-22 20:18] VITALS: BP_SYST 149; BP_SYST 167; BP_DIAS 42; BP_DIAS 46
[2020-03-22] MEDS: PANTOPRAZOLE SODIUM 40 MG TABLET.DR PO SCH (21:20)
[2020-03-22] MEDS: ATORVASTATIN 10 MG TABLET PO SCH (21:20)
--- NOTE | 2020-03-22 22:17 | NUR ---
Received pt resting in bed. AAO x3-4. On 2L O2 via NC, no acute distress noted. Denies pain/discomfort. Due meds given as ordered. Accucheck 134, insulin coverage given per sliding scale. Snack given. Pt on fluid restriction 1,000mL/ day. Noted non- productive cough. Pt complain that her right upper arm midline was dislodged in the morning. Inserted IV on right hand. Safety measures maintained. Call light and personal items within reach. Will continue to monitor.
[2020-03-23] MEDS: ALBUTEROL SULFATE 1.25 MG/3 ML NEBU NEB SCH ×5 (00:57→19:08)
[2020-03-23] MEDS: IPRATROPIUM BROMIDE 0.5 MG/2.5 ML NEBU NEB SCH ×5 (00:57→19:07)
[2020-03-23] MEDS: GUAIFENESIN/DEXTROMETHORPHAN 5 ML UDC PO PRN ×4 (01:20→21:09)
[2020-03-23] MEDS: HYDROMORPHONE HCL 2 MG TABLET PO PRN ×4 (01:20→21:09)
[2020-03-23 04:21] VITALS: BP 166/56
[2020-03-23] MEDS: PREGABALIN 25 MG CAPSULE PO SCH ×2 (05:12→13:07)
[2020-03-23] MEDS: CLONIDINE HCL 0.1 MG TABLET PO PRN (05:13)
[2020-03-23] MEDS: ACETAMINOPHEN 325 MG TABLET PO PRN ×3 (06:21→19:21)
[2020-03-23] MEDS: BLOOD SUGAR DIAGNOSTIC 1 EACH STRIP VI SCH ×4 (06:30→21:22)
[2020-03-23 08:30] VITALS: BP 144/32
[2020-03-23] MEDS: LINAGLIPTIN 5 MG TABLET PO SCH (09:05)
[2020-03-23] MEDS: CLOPIDOGREL 75 MG TABLET PO SCH (09:05)
[2020-03-23] MEDS: ASPIRIN 81 MG TAB.CHEW PO SCH (09:05)
[2020-03-23] MEDS: BACLOFEN 20 MG TABLET PO SCH ×3 (09:05→17:08)
[2020-03-23] MEDS: DOCUSATE SODIUM 100 MG CAPSULE PO SCH ×2 (09:05→17:08)
[2020-03-23] MEDS: LOSARTAN POTASSIUM 50 MG TABLET PO SCH (09:06)
[2020-03-23] MEDS: levoFLOXacin 500 MG TABLET PO SCH (09:06)
[2020-03-23] MEDS: TOLTERODINE LA 2 MG CAP.SR.24H PO SCH (09:06)
[2020-03-23] MEDS: LIDOCAINE 5% PATCH TD SCH ×3 (09:07→09:10)
[2020-03-23] MEDS: LABETALOL HCL 200 MG TABLET PO SCH ×2 (09:07→17:13)
[2020-03-23] MEDS: FUROSEMIDE 40 MG/4 ML VIAL IV SCH ×2 (09:08→21:08)
[2020-03-23] MEDS: FLUTICASONE PROP NASAL SPRAY 16 GM BOTTLE NS SCH (09:08)
[2020-03-23] MEDS: FLUTICASONE/VILANTEROL 1 EACH BLST.W.DEV INH SCH (09:08)
[2020-03-23] MEDS: CLOTRIMAZOLE/BETAMET DIPROP CREAM 15 GM TUBE TP SCH ×2 (09:09→17:13)
[2020-03-23] MEDS: MIRALAX 17 GM POWD.PACK PO SCH (09:09)
[2020-03-23] MEDS: TRIAMCINOLONE ACET 0.025% LOT 60 ML BOTTLE TOP SCH (09:10)
[2020-03-23] MEDS: PAROXETINE 37.5 MG PO SCH (11:48)
[2020-03-23] MEDS: glipiZIDE 5 MG TABLET PO SCH ×2 (11:49→17:08)
[2020-03-23] MEDS: INSULIN REGULAR, HUMAN 300 UNIT/3 ML VIAL SQ PRN ×3 (13:09→21:25)
[2020-03-23 15:52] VITALS: BP 117/54
--- NOTE | 2020-03-23 18:48 | NUR ---
Patient is resting in her chair. No sign of distress noted at this time. All medications given as ordered. Patient's fluid restriction observed Safety precautions in place with call light and belongings within reach. Will endorse to oncoming nurse.
[2020-03-23 20:00] VITALS: BP 121/38
[2020-03-23] MEDS ORDERED: PREGABALIN 25 MG CAPSULE PO SCH (21:00)
[2020-03-23] MEDS: TOPIRAMATE 25 MG TABLET PO SCH (21:08)
[2020-03-23] MEDS: ATORVASTATIN 10 MG TABLET PO SCH (21:08)
[2020-03-23] MEDS: PANTOPRAZOLE SODIUM 40 MG TABLET.DR PO SCH (21:08)
[2020-03-24] MEDS: IPRATROPIUM BROMIDE 0.5 MG/2.5 ML NEBU NEB SCH ×3 (00:30→14:18)
[2020-03-24] MEDS: ALBUTEROL SULFATE 1.25 MG/3 ML NEBU NEB SCH ×3 (00:30→14:18)
[2020-03-24 04:00] VITALS: BP 150/42
[2020-03-24] MEDS: GUAIFENESIN/DEXTROMETHORPHAN 5 ML UDC PO PRN ×2 (04:45→11:13)
[2020-03-24] MEDS: HYDROMORPHONE HCL 2 MG TABLET PO PRN ×2 (04:45→11:14)
[2020-03-24] MEDS: BLOOD SUGAR DIAGNOSTIC 1 EACH STRIP VI SCH ×2 (06:05→11:27)
[2020-03-24 08:00] VITALS: BP 156/49
[2020-03-24] MEDS: glipiZIDE 5 MG TABLET PO SCH (09:02)
[2020-03-24] MEDS: LINAGLIPTIN 5 MG TABLET PO SCH (09:02)
[2020-03-24] MEDS: DOCUSATE SODIUM 100 MG CAPSULE PO SCH ×2 (09:02→16:17)
[2020-03-24] MEDS: CLOPIDOGREL 75 MG TABLET PO SCH (09:02)
[2020-03-24] MEDS: FLUTICASONE/VILANTEROL 1 EACH BLST.W.DEV INH SCH (09:03)
[2020-03-24] MEDS: BACLOFEN 20 MG TABLET PO SCH ×3 (09:03→16:17)
[2020-03-24] MEDS: TOLTERODINE LA 2 MG CAP.SR.24H PO SCH (09:03)
[2020-03-24] MEDS: PAROXETINE 37.5 MG PO SCH (09:04)
[2020-03-24] MEDS: levoFLOXacin 500 MG TABLET PO SCH (09:04)
[2020-03-24] MEDS: MIRALAX 17 GM POWD.PACK PO SCH (09:04)
[2020-03-24] MEDS: ASPIRIN 81 MG TAB.CHEW PO SCH (09:04)
[2020-03-24] MEDS: LABETALOL HCL 200 MG TABLET PO SCH ×2 (09:05→16:17)
[2020-03-24] MEDS: LOSARTAN POTASSIUM 50 MG TABLET PO SCH (09:05)
[2020-03-24] MEDS: TOPIRAMATE 25 MG TABLET PO SCH (09:05)
[2020-03-24] MEDS: LIDOCAINE 5% PATCH TD SCH ×3 (09:06)
[2020-03-24] MEDS: TRIAMCINOLONE ACET 0.025% LOT 60 ML BOTTLE TOP SCH (09:13)
[2020-03-24] MEDS: FLUTICASONE PROP NASAL SPRAY 16 GM BOTTLE NS SCH (09:14)
[2020-03-24] MEDS: CLOTRIMAZOLE/BETAMET DIPROP CREAM 15 GM TUBE TP SCH ×2 (09:14→16:21)
[2020-03-24] MEDS: INSULIN REGULAR, HUMAN 300 UNIT/3 ML VIAL SQ PRN (09:15)
[2020-03-24 09:44] LABS: BASOPHILS # (AUTO) 0.1 K/uL (0.0-8.0); BASOPHILS % (AUTO) 0.8 % (0.0-2.0); EOSINOPHILS # (AUTO) 0.2 K/uL (0.0-0.7); EOSINOPHILS % (AUTO) 3.6 % (0.0-7.0); HEMATOCRIT 28.4 % (31.2-41.9); HEMOGLOBIN 9.5 g/dL (10.9-14.3); LYMPHOCYTES # (AUTO) 1.8 K/uL (20.0-40.0); LYMPHOCYTES % (AUTO) 25.9 % (20.5-51.5); MEAN CORPUSCULAR HEMOGLOBIN 28.3 uug (24.7-32.8); MEAN CORPUSCULAR HGB CONC 33 g/dL (32.3-35.6); MEAN CORPUSCULAR VOLUME 84.7 fL (75.5-95.3); MONOCYTES # (AUTO) 0.6 K/uL (2.0-10.0); MONOCYTES % (AUTO) 8.8 % (0.0-11.0); NEUTROPHILS # (AUTO) 4.2 K/uL (1.8-8.9); NEUTROPHILS % (AUTO) 60.9 % (38.5-71.5); PLATELET COUNT (AUTO) 339 K/uL (179-408); RED BLOOD CELL COUNT(AUTO) 3.35 MIL/uL (3.63-4.92)
[2020-03-24 09:49] LABS: CREATININE 0.9 mg/dL (0.6-1.3); POTASSIUM 4.1 mmol/L (3.5-5.1)
--- NOTE | 2020-03-24 10:51 | NUR ---
Pt received this morning, NAD, no SOB, and denies pain at this time. Pt requests pain medication upon return from therapy. Pt compliant with routine medications and therapy as offered. Plan for today discussed including pending D/C later today. All comfort and safety measures implemented. Call light within reach. Will continue to monitor.
[2020-03-24] MEDS: FUROSEMIDE 40 MG/4 ML VIAL IV SCH (11:16)
[2020-03-24 15:48] VITALS: BP 142/53
[2020-03-24 16:17] VITALS: BP 142/53
[2020-03-24] MEDS: ACETAMINOPHEN 325 MG TABLET PO PRN (16:17)
--- NOTE | 2020-03-24 16:40 | NUR ---
Pt in stable condition at time of discharge. Discharge order received from MD. Pt seen by . ALEXIS signed and faxed to preferred pharmacy. Medications, Pt education, and discharge paperwork reviewed with Pt, originals signed, given to Pt, and copies placed in chart. Home medications returned to Pt. No new photos to take at this time. IV removed intact. Report given to bottom scrubber. Pt safety transferred from bed to [facility] and escorted out of the building. Will remove Pt from system shortly.
== END 2020-03-24 19:30 | disposition home health service (06) | DRG 194 ==
PROVIDERS: ADMIT Physical Medicine & Rehabilitation Pain Medicine; ATTEND Physical Medicine & Rehabilitation Pain Medicine
DX: I13.0 Hypertensive heart and chronic kidney disease with heart failure and stage 1 through stage 4 chronic kidney disease, or unspecified chronic kidney disease (principal); I50.43 Acute on chronic combined systolic (congestive) and diastolic (congestive) heart failure; D63.8 Anemia in other chronic diseases classified elsewhere; E11.22 Type 2 diabetes mellitus with diabetic chronic kidney disease; E22.2 Syndrome of inappropriate secretion of antidiuretic hormone; E78.5 Hyperlipidemia, unspecified; G89.4 Chronic pain syndrome; I25.10 Atherosclerotic heart disease of native coronary artery without angina pectoris; I69.354 Hemiplegia and hemiparesis following cerebral infarction affecting left non-dominant side; J45.909 Unspecified asthma, uncomplicated; J96.01 Acute respiratory failure with hypoxia; L03.115 Cellulitis of right lower limb; L03.116 Cellulitis of left lower limb; N18.9 Chronic kidney disease, unspecified; N32.81 Overactive bladder; M54.5 Low back pain; R07.89 Other chest pain; R32 Unspecified urinary incontinence; N17.0 Acute kidney failure with tubular necrosis; E66.2 Morbid (severe) obesity with alveolar hypoventilation; E11.65 Type 2 diabetes mellitus with hyperglycemia; D68.59 Other primary thrombophilia; G62.9 Polyneuropathy, unspecified; I65.22 Occlusion and stenosis of left carotid artery; I87.2 Venous insufficiency (chronic) (peripheral); Z91.81 History of falling; Z88.1 Allergy status to other antibiotic agents; I89.0 Lymphedema, not elsewhere classified; Z68.42 Body mass index [BMI] 45.0-49.9, adult; F39 Unspecified mood [affective] disorder; R20.0 Anesthesia of skin; R19.5 Other fecal abnormalities
CPT/HCPCS: 36415; 71045; 72100; 83550; 83735; 84100; 84156; 84300; 84443; 84550; 85025; 94640; 94664; A4663; J1650; J1815; J1940; J3370; J3535; J3590; J7040; J7050; J7060

== ENCOUNTER 2020-07-29 22:24 | Inpatient (IN) | payer BC, OTHER ==
[~2020-07-29] VITALS: Ht 157.5 cm; Wt 117.0 kg
[~2020-07-29 22:24] MED LIST changes: +ALBU2.5V13 IH; +CLOT15CR5 TP; +EZET10TA15 PO; +LOSA100T31 PO; +PARO37.511 PO; +TRIA80CR2 TP
[2020-07-29] MEDS ORDERED: HYDROMORPHONE 1 MG/1 ML DISP.SYRIN IV ONE (23:00)
[2020-07-29] MEDS ORDERED: VANCOMYCIN 1G/D5W 200 ML PIGGYBACK IV ONE (23:00)
[2020-07-29] MEDS ORDERED: VANCOMYCIN IV 200 ML ONE (23:27)
[2020-07-29] MEDS ORDERED: HYDROMORPHONE 1 MG/1 ML DISP.SYRIN ONE (23:29)
[2020-07-29 23:37] LABS: BASOPHILS # (AUTO) 0.1 K/uL (0.0-8.0); BASOPHILS % (AUTO) 0.7 % (0.0-2.0); EOSINOPHILS # (AUTO) 0.3 K/uL (0.0-0.7); EOSINOPHILS % (AUTO) 2.6 % (0.0-7.0); HEMATOCRIT 29.4 % (31.2-41.9); HEMOGLOBIN 9.4 g/dL (10.9-14.3); LYMPHOCYTES # (AUTO) 1.4 K/uL (20.0-40.0); LYMPHOCYTES % (AUTO) 12.3 % (20.5-51.5); MEAN CORPUSCULAR HEMOGLOBIN 26.8 uug (24.7-32.8); MEAN CORPUSCULAR HGB CONC 32 g/dL (32.3-35.6); MEAN CORPUSCULAR VOLUME 84.1 fL (75.5-95.3); MONOCYTES # (AUTO) 0.8 K/uL (2.0-10.0); MONOCYTES % (AUTO) 6.7 % (0.0-11.0); NEUTROPHILS # (AUTO) 9.1 K/uL (1.8-8.9); NEUTROPHILS % (AUTO) 77.7 % (38.5-71.5); PLATELET COUNT (AUTO) 332 K/uL (179-408); RED BLOOD CELL COUNT(AUTO) 3.49 MIL/uL (3.63-4.92); WHITE BLOOD COUNT (AUTO) 11.7 K/uL (3.8-11.8)
[2020-07-29 23:43] LABS: CREATININE 1.2 mg/dL (0.6-1.3); POTASSIUM 4.8 mmol/L (3.5-5.1)
[2020-07-29 23:49] LABS: BILIRUBIN,DIRECT 0.1 mg/dL (0.0-0.2); BILIRUBIN,TOTAL 0.5 mg/dL (0.2-1.0); TOTAL PROTEIN, SERUM 6.8 g/dL (6.4-8.2)
[2020-07-30] MEDS ORDERED: HYDROMORPHONE 1 MG/1 ML DISP.SYRIN IV ONE (00:15)
[2020-07-30] MEDS ORDERED: HYDROMORPHONE 1 MG/1 ML DISP.SYRIN ONE (00:17)
[2020-07-30] MEDS ORDERED: DOCU-141 PO (00:22)
[2020-07-30] MEDS ORDERED: HYDR-4077 PO (00:22)
[2020-07-30] MEDS ORDERED: TOLT2CAP22 PO (00:22)
[2020-07-30] MEDS ORDERED: ATOR10TA PO (00:22)
[2020-07-30] MEDS ORDERED: SENN-261 PO (00:22)
[2020-07-30] MEDS ORDERED: DEXT15SY3 PO (00:24)
--- NOTE | 2020-07-30 00:27 | NUR ---
64 y/o female presents to ED via EMS from home for a non-syncopal fall. Patient is complaining of 10/10 non-radiating Right Shoulder pain. Patient is familiar to me from a prior admission. Patient is A&Ox4. Cooperative. No SI/HI/AH/VH. Cranial nerves I-XII intact. Patients 12-Lead EKG is NSR. No chest pain, diaphoresis, chills, or palpitations. Saturations were <94% on Room Air so patient was put on 2L via Nasal Canula now saturating >94% - Patient has oxygen at home that she uses when she is SOB. Hx of CHF. All four of the patients extremities are edematous - particulary her lower. Left lower leg shows signs of possible Cellulitis. Patient is incontinent at nights - wears a diaper. No reports of constipation or diarrhea.
[2020-07-30] MEDS ORDERED: ACETAMINOPHEN ES 500 MG TABLET PO ONE (01:30)
[2020-07-30] MEDS ORDERED: ACETAMINOPHEN ES 500 MG TABLET ONE (01:31)
--- NOTE | 2020-07-30 02:28 | NUR ---
Patient accepted by Dr. Eden ([facility]) for M/S admission in Room 302.
[2020-07-30 03:30] VITALS: BP 102/41
--- NOTE | 2020-07-30 03:30 | NUR ---
Patient taken to Room 322 under the care of Suzanna LUIS. Belongings with patient. VSS. Stable condition.
[2020-07-30] MEDS: HYDROMORPHONE 1 MG/1 ML DISP.SYRIN IV PRN ×2 (04:38→21:11)
[2020-07-30] MEDS ORDERED: [UNRECOGNIZED DRUG - OTHER] INH PRN (06:45)
[2020-07-30] MEDS ORDERED: IPRATROPIUM INH PRN (06:45)
[2020-07-30] MEDS ORDERED: [UNRECOGNIZED DRUG - OTHER] INH PRN (06:45)
[2020-07-30] MEDS ORDERED: ALBUTEROL INH PRN (06:45)
--- NOTE | 2020-07-30 06:53 | NUR ---
Pt admitted at 0330H. Assessment complete. All belongings accounted for. Pictures taken and placed in chart. Dr. Eden notified and home meds faxed to pharmacy. Home meds at bedside brought to pharmacy. No discomfort or SOB noted at this time. Dilaudid for pain prn. No other issues or concerns at this time.
--- NOTE | 2020-07-30 07:30 | NUR ---
pt in bed resting, awake alert and oriented x3, sometimes confused, pt on room air no signs of distress noted, no reports of pain at this time. pt able to ambulate with physical therapy, pt incontinent of bowel and bladder. IV access on the left FA 22g saline lock, bed in low and locked position, call light within reach, fall and safety precautions in place, will continue with plan of care. Addendum: 07/30/20 at 1214 by DANIA GUEVARA RN WRONG PATIENT
--- NOTE | 2020-07-30 07:30 | NUR ---
received change of shift report, pt a/ox4 with c/o of cellulitis of left lower leg. pt on 2L NC saturating at 96%, no signs of distress, pain 10/10 medication given as ordered. pt on bedrest, unable to fully move upper extremities, left sided weakness from history of stroke, right shoulder pain from fall, pt has bruise on right eye. pt voids via diaper. IV access on the L FA 22g saline lock. bed in low and locked position, call light within reach, safety and fall precautions in place, will continue with plan of care.
[2020-07-30 08:00] VITALS: BP 124/39
[2020-07-30] MEDS ORDERED: IPRATROPIUM BROMIDE 0.5 MG/2.5 ML NEBU NEB PRN (08:00)
[2020-07-30] MEDS ORDERED: GUAIFENESIN SUGAR FREE 100 MG/5 ML UDC PO PRN (08:00)
[2020-07-30] MEDS ORDERED: hydrALAZINE HCL 50 MG TABLET PO PRN (08:00)
[2020-07-30] MEDS ORDERED: DEXTROSE 50% 50 ML DISP.SYRIN IV PRN (08:45)
[2020-07-30] MEDS: HYDROMORPHONE HCL 2 MG TABLET PO PRN ×2 (08:55→14:13)
[2020-07-30] MEDS ORDERED: PAROXETINE HCL 10 MG TABLET PO SCH (09:00)
[2020-07-30] MEDS ORDERED: DOCUSATE SODIUM 100 MG CAPSULE PO SCH (09:00)
[2020-07-30] MEDS ORDERED: MUPIROCIN 2% OINT 22 GM TUBE NS SCH (09:00)
[2020-07-30] MEDS ORDERED: glipiZIDE 5 MG TABLET PO SCH (09:00)
[2020-07-30] MEDS: LINAGLIPTIN 5 MG TABLET PO SCH (09:26)
[2020-07-30] MEDS: SALMETEROL INH SCH ×2 (09:26→20:59)
[2020-07-30] MEDS: [UNRECOGNIZED DRUG - OTHER] INH SCH ×2 (09:26→20:59)
[2020-07-30] MEDS: FLUTICASONE INH SCH ×2 (09:26→20:59)
[2020-07-30] MEDS: glipiZIDE 10 MG TABLET PO SCH ×2 (09:27→16:56)
[2020-07-30] MEDS: CLOPIDOGREL 75 MG TABLET PO SCH (09:27)
[2020-07-30] MEDS: DOCUSATE SODIUM 100 MG CAPSULE PO SCH ×2 (09:27→17:11)
[2020-07-30] MEDS: FUROSEMIDE 40 MG TABLET PO SCH ×2 (09:27→17:11)
[2020-07-30] MEDS: TOLTERODINE LA 2 MG CAP.SR.24H PO SCH (09:27)
[2020-07-30] MEDS: PAROXETINE HCL 20 MG TABLET PO SCH (09:27)
[2020-07-30] MEDS: SENNOSIDES 1 TABLET PO SCH (09:27)
[2020-07-30] MEDS: ASPIRIN 81 MG TAB.CHEW PO SCH (09:33)
[2020-07-30] MEDS: LOSARTAN POTASSIUM 50 MG TABLET PO SCH (09:33)
[2020-07-30] MEDS ORDERED: LIDOCAINE 5% PATCH TD SCH ×2 (10:19→11:25)
[2020-07-30] MEDS: ACETAMINOPHEN 325 MG TABLET PO PRN ×2 (11:29→17:32)
[2020-07-30] MEDS ORDERED: INSULIN REGULAR, HUMAN 300 UNIT/3 ML VIAL SQ SCH (11:30)
[2020-07-30] MEDS: BLOOD SUGAR DIAGNOSTIC 1 EACH STRIP VI SCH ×3 (11:41→20:50)
[2020-07-30 11:54] VITALS: BP 139/40
[2020-07-30] MEDS: INSULIN REGULAR, HUMAN 300 UNIT/3 ML VIAL SQ PRN ×3 (13:31→21:07)
[2020-07-30] MEDS: ALBUTEROL SULFATE 2.5 MG/ 0.5 ML NEBU NEB SCH ×2 (13:51→19:48)
[2020-07-30] MEDS: IPRATROPIUM BROMIDE 0.5 MG/2.5 ML NEBU NEB SCH ×2 (13:51→19:48)
[2020-07-30] MEDS ORDERED: BACLOFEN 10 MG TABLET PO SCH (14:00)
[2020-07-30] MEDS: PREGABALIN 50 MG CAPSULE PO SCH ×2 (14:12→23:01)
[2020-07-30] MEDS: BACLOFEN 20 MG TABLET PO SCH ×2 (14:12→23:01)
[2020-07-30] MEDS: LABETALOL HCL 200 MG TABLET PO SCH ×2 (14:13→23:01)
[2020-07-30] MEDS: CLOTRIMAZOLE 1% CREAM 30 GM TUBE TP SCH ×2 (14:24→17:11)
[2020-07-30] MEDS: TRIAMCINOLONE ACET 0.025% OINT 15 GM TUBE TP SCH (14:24)
[2020-07-30 16:00] VITALS: BP 117/43
--- NOTE | 2020-07-30 18:42 | NUR ---
pt in bed resting, a/o x4, edema 2+ pitting edema on the left lower leg, on 2L NC saturating at 98%, no signs of distress noted, no reports of pain at this time. pt has been able to move right should more than this morning, pt had soft formed BM, IV access on left FA 22g saline lock, all medications given as ordered. bed in low and locked position, call light within reach, safety and fall precautions in place, will endorse to oncoming nurse.
--- NOTE | 2020-07-30 19:45 | NUR ---
PATIENT ALERT ORIENTED, NO SOB NO CHEST PAIN. PATIENT HAD SOME DISCOMFORT ON R SHOULDER DUE S/P FALL FROM HOME, LEG WITH WHIPPING CELLULITIS. NOTIFY BRAD [place] SAMMYING MACHINE OPERATOR REGARDING LIDOCAINE 5% PATCH, ORDER NEEDS TO BE CHANGED TO Q 24, AND ON FOR 12HRS AND OFF FOR 12 HRS. CLEM OKEYED THE ORDER. CONT ON PAIN MANAGEMENT.
[2020-07-30] MEDS: ALBUTEROL SULFATE 2.5 MG/3 ML NEBU NEB PRN (19:48)
[2020-07-30 19:57] VITALS: BP 144/67
[2020-07-30] MEDS: MEROPENEM 500 MG in IV NORMAL SALINE 50 ML IV SCH (20:46)
[2020-07-30] MEDS: ATORVASTATIN 10 MG TABLET PO SCH (20:51)
[2020-07-30] MEDS: EZETIMIBE 10 MG TABLET PO SCH (20:51)
[2020-07-30] MEDS ORDERED: ATORVASTATIN 40 MG TABLET PO SCH (21:00)
[2020-07-30] MEDS: INSULIN GLARGINE,HUM 300 UNITS/3 ML CARTRIDGE SQ SCH (21:06)
[2020-07-30] MEDS: PANTOPRAZOLE SODIUM 40 MG TABLET.DR PO SCH (21:11)
[2020-07-30] MEDS ORDERED: MEROPENEM 0.5 G in IV NORMAL SALINE 50 ML IV SCH (22:00)
[2020-07-30] MEDS ORDERED: VANCOMYCIN IV 1,000 MG in IV DEXTROSE 5% 250 ML IV SCH (22:00)
[2020-07-31] MEDS: IPRATROPIUM BROMIDE 0.5 MG/2.5 ML NEBU NEB SCH ×4 (00:57→19:52)
[2020-07-31] MEDS: ALBUTEROL SULFATE 2.5 MG/3 ML NEBU NEB PRN ×2 (00:57→00:58)
[2020-07-31] MEDS: ALBUTEROL SULFATE 2.5 MG/ 0.5 ML NEBU NEB SCH ×4 (00:58→19:52)
[2020-07-31] MEDS: ACETAMINOPHEN 325 MG TABLET PO PRN ×3 (01:26→21:50)
[2020-07-31 01:36] LABS: *BILIRUBIN,URIN NEGATIVE (NEGATIVE); *BLOOD, URINE NEGATIVE (NEGATIVE); *COLOR,URINE YELLOW (YELLOW); *KETONES,URINE NEGATIVE (NEGATIVE); *UROBILINOGEN,URINE 0.2 E.U./dl (NORMAL); LEUKOCYTE ESTERASE ,URINE TRACE (NEGATIVE); NITRITE, URINE NEGATIVE (NEGATIVE); UGLUCOSE NEGATIVE (NEGATIVE)
[2020-07-31 01:46] LABS: *CLARITY,URINE HAZY (CLEAR); BACTERIA,URINE FEW /HPF (NONE SEEN); RBC,URINE 0-3 /HPF (0-3); SQUAMOUS EPITHELIAL CELL,UR MODERATE /HPF (NONE SEEN)
[2020-07-31 01:47] LABS: *CREATININE,URINE 41.1 mg/dL (30-125); *URINE TOTAL PROTEIN RANDOM < 6.0 mg/dL (<150/24HR)
[2020-07-31 04:57] VITALS: BP 154/57
[2020-07-31] MEDS: BLOOD SUGAR DIAGNOSTIC 1 EACH STRIP VI SCH ×4 (06:23→20:54)
[2020-07-31] MEDS: BACLOFEN 20 MG TABLET PO SCH ×3 (06:27→21:51)
[2020-07-31] MEDS: LABETALOL HCL 200 MG TABLET PO SCH ×3 (06:28→21:51)
[2020-07-31] MEDS: PREGABALIN 50 MG CAPSULE PO SCH ×3 (06:28→21:51)
[2020-07-31 06:36] LABS: BASOPHILS # (AUTO) 0.1 K/uL (0.0-8.0); BASOPHILS % (AUTO) 0.8 % (0.0-2.0); EOSINOPHILS # (AUTO) 0.2 K/uL (0.0-0.7); EOSINOPHILS % (AUTO) 2.1 % (0.0-7.0); HEMATOCRIT 27.5 % (31.2-41.9); LYMPHOCYTES # (AUTO) 1.7 K/uL (20.0-40.0); LYMPHOCYTES % (AUTO) 19.1 % (20.5-51.5); MEAN CORPUSCULAR HEMOGLOBIN 27.4 uug (24.7-32.8); MEAN CORPUSCULAR HGB CONC 33 g/dL (32.3-35.6); MONOCYTES # (AUTO) 0.9 K/uL (2.0-10.0); MONOCYTES % (AUTO) 10.3 % (0.0-11.0); NEUTROPHILS # (AUTO) 6.1 K/uL (1.8-8.9); NEUTROPHILS % (AUTO) 67.7 % (38.5-71.5); PLATELET COUNT (AUTO) 308 K/uL (179-408); RED BLOOD CELL COUNT(AUTO) 3.28 MIL/uL (3.63-4.92)
[2020-07-31 06:47] LABS: BILIRUBIN,TOTAL 0.7 mg/dL (0.2-1.0); CREATININE 0.9 mg/dL (0.6-1.3); MAGNESIUM 2.5 mg/dL (1.8-2.4); POTASSIUM 3.7 mmol/L (3.5-5.1); TOTAL PROTEIN, SERUM 6.2 g/dL (6.4-8.2)
[2020-07-31] MEDS: HYDROMORPHONE HCL 2 MG TABLET PO PRN ×3 (06:50→18:39)
--- NOTE | 2020-07-31 07:00 | NUR ---
PATIENT ASLEEP BUT AROUSABLE, NO COMPLAIN OF PAIN, CONT ON PAIN MANAGEMENT OF R SHOULDER, AND BACK, TURN AND REPOSITION, KEPT CLEAN AND DRY. PATIENT LEFT LEG CELLULITIS WITH REDNESS AND DRAINING WITH CLEAN COLOR FLUIDS KEPT IT ELEVATED, CALL LIGHT WITHIN REACH.
[2020-07-31] MEDS: INSULIN REGULAR, HUMAN 300 UNIT/3 ML VIAL SQ PRN ×4 (07:21→21:05)
[2020-07-31] MEDS: glipiZIDE 10 MG TABLET PO SCH ×2 (08:01→15:50)
[2020-07-31] MEDS: PAROXETINE HCL 20 MG TABLET PO SCH (08:01)
[2020-07-31] MEDS: ASPIRIN 81 MG TAB.CHEW PO SCH (08:01)
[2020-07-31] MEDS: DOCUSATE SODIUM 100 MG CAPSULE PO SCH ×2 (08:01→16:45)
[2020-07-31] MEDS: TOLTERODINE LA 2 MG CAP.SR.24H PO SCH (08:01)
[2020-07-31] MEDS: CLOPIDOGREL 75 MG TABLET PO SCH (08:01)
[2020-07-31] MEDS: SENNOSIDES 1 TABLET PO SCH (08:01)
[2020-07-31] MEDS: LOSARTAN POTASSIUM 50 MG TABLET PO SCH (08:02)
[2020-07-31] MEDS: FUROSEMIDE 40 MG TABLET PO SCH ×2 (08:02→16:45)
[2020-07-31] MEDS: LIDOCAINE 5% PATCH TD SCH (08:06)
[2020-07-31] MEDS: MEROPENEM 500 MG in IV NORMAL SALINE 50 ML IV SCH (08:06)
[2020-07-31] MEDS: LINAGLIPTIN 5 MG TABLET PO SCH (08:06)
[2020-07-31] MEDS: [UNRECOGNIZED DRUG - OTHER] INH SCH ×2 (08:29→20:49)
[2020-07-31] MEDS: CLOTRIMAZOLE 1% CREAM 30 GM TUBE TP SCH ×2 (08:29→16:45)
[2020-07-31] MEDS: SALMETEROL INH SCH ×2 (08:29→20:49)
[2020-07-31] MEDS: FLUTICASONE INH SCH ×2 (08:29→20:49)
[2020-07-31] MEDS: TRIAMCINOLONE ACET 0.025% OINT 15 GM TUBE TP SCH (08:29)
[2020-07-31] MEDS ORDERED: LIDOCAINE 5% PATCH TD SCH (09:00)
[2020-07-31 12:00] VITALS: BP 115/62
[2020-07-31] MEDS ORDERED: PARO37.512 PO (15:10)
[2020-07-31] MEDS ORDERED: HYDR-894 PO (15:13)
[2020-07-31] MEDS ORDERED: PREG50CA64 PO (15:19)
[2020-07-31] MEDS ORDERED: hydrALAZINE HCL 25 MG TABLET PO PRN (15:30)
[2020-07-31] MEDS: MEROPENEM 0.5 G in IV NORMAL SALINE 50 ML IV SCH ×2 (15:37→23:47)
[2020-07-31 16:08] VITALS: BP 123/60
[2020-07-31] MEDS: MIRALAX 17 GM POWD.PACK PO PRN (16:45)
--- NOTE | 2020-07-31 19:45 | NUR ---
PATIENT ALERT ORIENTED, NO SOB NO CHEST PAIN. NO COMPLAIN OF PAIN AT THIS TIME, CONT ABX FOR CELLULITIS. KEPT CLEAN AND DRY, ASSISTED WITH TURNING AND POSITIONING, CALL LIGHT WITHIN REACH.
[2020-07-31] MEDS: VANCOMYCIN IV 1,500 MG in IV DEXTROSE 5% 500 ML IV SCH (20:32)
[2020-07-31] MEDS: PANTOPRAZOLE SODIUM 40 MG TABLET.DR PO SCH (20:33)
[2020-07-31] MEDS: ATORVASTATIN 10 MG TABLET PO SCH (20:33)
[2020-07-31] MEDS: EZETIMIBE 10 MG TABLET PO SCH (20:33)
[2020-07-31 20:36] VITALS: BP 150/50
[2020-07-31] MEDS: INSULIN GLARGINE,HUM 300 UNITS/3 ML CARTRIDGE SQ SCH (21:03)
[2020-08-01] MEDS: HYDROMORPHONE HCL 2 MG TABLET PO PRN ×4 (00:45→18:38)
[2020-08-01] MEDS: ALBUTEROL SULFATE 2.5 MG/ 0.5 ML NEBU NEB SCH ×4 (01:38→20:39)
[2020-08-01] MEDS: IPRATROPIUM BROMIDE 0.5 MG/2.5 ML NEBU NEB SCH ×4 (01:38→20:39)
[2020-08-01 05:18] VITALS: BP 146/70
[2020-08-01] MEDS: ACETAMINOPHEN 325 MG TABLET PO PRN ×3 (06:01→21:22)
[2020-08-01] MEDS: BACLOFEN 20 MG TABLET PO SCH ×3 (06:02→21:09)
[2020-08-01] MEDS: PREGABALIN 50 MG CAPSULE PO SCH ×3 (06:02→21:09)
[2020-08-01] MEDS: LABETALOL HCL 200 MG TABLET PO SCH ×3 (06:03→21:09)
--- NOTE | 2020-08-01 06:24 | NUR ---
PATIENT SLEPT MOST OF THE NIGHT, CONT ON PAIN MANAGEMENT DUE R SHOULD PAIN AND BACK PAIN, LEFT LEG CELLULITIS STILL HAS REDNESS, SWELLING IS IMPROVING, CONT TO MONITOR.
[2020-08-01 06:25] LABS: BASOPHILS # (AUTO) 0.1 K/uL (0.0-8.0); BASOPHILS % (AUTO) 0.9 % (0.0-2.0); EOSINOPHILS # (AUTO) 0.3 K/uL (0.0-0.7); EOSINOPHILS % (AUTO) 3.4 % (0.0-7.0); HEMATOCRIT 27.7 % (31.2-41.9); HEMOGLOBIN 8.9 g/dL (10.9-14.3); LYMPHOCYTES # (AUTO) 2.2 K/uL (20.0-40.0); LYMPHOCYTES % (AUTO) 26.3 % (20.5-51.5); MEAN CORPUSCULAR HGB CONC 32 g/dL (32.3-35.6); MONOCYTES # (AUTO) 0.7 K/uL (2.0-10.0); MONOCYTES % (AUTO) 9.2 % (0.0-11.0); NEUTROPHILS # (AUTO) 4.9 K/uL (1.8-8.9); NEUTROPHILS % (AUTO) 60.2 % (38.5-71.5); PLATELET COUNT (AUTO) 291 K/uL (179-408); WHITE BLOOD COUNT (AUTO) 8.2 K/uL (3.8-11.8)
[2020-08-01 06:37] LABS: CREATININE 0.8 mg/dL (0.6-1.3); MAGNESIUM 2.4 mg/dL (1.8-2.4); PHOSPHOROUS 3.9 mg/dL (2.5-4.9); POTASSIUM 3.6 mmol/L (3.5-5.1)
[2020-08-01] MEDS: BLOOD SUGAR DIAGNOSTIC 1 EACH STRIP VI SCH ×4 (06:45→21:06)
[2020-08-01 08:00] VITALS: BP 141/43
[2020-08-01] MEDS: SENNOSIDES 1 TABLET PO SCH (08:35)
[2020-08-01] MEDS: ASPIRIN 81 MG TAB.CHEW PO SCH (08:35)
[2020-08-01] MEDS: DOCUSATE SODIUM 100 MG CAPSULE PO SCH ×2 (08:35→17:46)
[2020-08-01] MEDS: TOLTERODINE LA 2 MG CAP.SR.24H PO SCH (08:35)
[2020-08-01] MEDS: MEROPENEM 0.5 G in IV NORMAL SALINE 50 ML IV SCH ×2 (08:35→15:38)
[2020-08-01] MEDS: LOSARTAN POTASSIUM 50 MG TABLET PO SCH (08:36)
[2020-08-01] MEDS: FUROSEMIDE 40 MG TABLET PO SCH ×2 (08:37→17:46)
[2020-08-01] MEDS: PAROXETINE HCL 20 MG TABLET PO SCH (08:37)
[2020-08-01] MEDS: CLOPIDOGREL 75 MG TABLET PO SCH (08:37)
[2020-08-01] MEDS: glipiZIDE 10 MG TABLET PO SCH ×2 (08:40→17:46)
[2020-08-01] MEDS: FLUTICASONE INH SCH ×2 (08:41→21:22)
[2020-08-01] MEDS: SALMETEROL INH SCH ×2 (08:41→21:22)
[2020-08-01] MEDS: LIDOCAINE 5% PATCH TD SCH (08:41)
[2020-08-01] MEDS: [UNRECOGNIZED DRUG - OTHER] INH SCH ×2 (08:41→21:22)
[2020-08-01] MEDS: LINAGLIPTIN 5 MG TABLET PO SCH (08:41)
[2020-08-01] MEDS: CLOTRIMAZOLE 1% CREAM 30 GM TUBE TP SCH ×2 (08:42→17:46)
[2020-08-01] MEDS: TRIAMCINOLONE ACET 0.025% OINT 15 GM TUBE TP SCH (08:42)
[2020-08-01] MEDS: INSULIN REGULAR, HUMAN 300 UNIT/3 ML VIAL SQ PRN ×4 (08:44→21:12)
[2020-08-01 14:00] VITALS: BP 148/49
[2020-08-01] MEDS: MIRALAX 17 GM POWD.PACK PO PRN (14:39)
--- NOTE | 2020-08-01 18:00 | NUR ---
Patient is alert and oriented x 4 complains of shoulder pain, lidocaine patch given as ordered and all medications given per MD order. left leg is warm to touch with no weeping noted. Repositioning rendered for comfort. VS WNL. Call light placed within reach. All needs met promptly.
--- NOTE | 2020-08-01 19:47 | NUR ---
Left upper arm intact.
[2020-08-01] MEDS: VANCOMYCIN IV 1,500 MG in IV DEXTROSE 5% 500 ML IV SCH (20:12)
[2020-08-01 20:26] VITALS: BP 112/56
[2020-08-01] MEDS: ATORVASTATIN 10 MG TABLET PO SCH (21:09)
[2020-08-01] MEDS: EZETIMIBE 10 MG TABLET PO SCH (21:09)
[2020-08-01] MEDS: PANTOPRAZOLE SODIUM 40 MG TABLET.DR PO SCH (21:09)
[2020-08-01] MEDS: INSULIN GLARGINE,HUM 300 UNITS/3 ML CARTRIDGE SQ SCH (21:12)
[2020-08-02] MEDS: MEROPENEM 0.5 G in IV NORMAL SALINE 50 ML IV SCH ×4 (00:34→23:43)
[2020-08-02] MEDS: HYDROMORPHONE HCL 2 MG TABLET PO PRN ×3 (00:47→20:25)
[2020-08-02] MEDS: ALBUTEROL SULFATE 2.5 MG/ 0.5 ML NEBU NEB SCH ×4 (01:38→19:44)
[2020-08-02] MEDS: IPRATROPIUM BROMIDE 0.5 MG/2.5 ML NEBU NEB SCH ×4 (01:38→19:44)
[2020-08-02] MEDS: ACETAMINOPHEN 325 MG TABLET PO PRN ×3 (03:45→10:47)
[2020-08-02 05:19] VITALS: BP 120/44
[2020-08-02 06:04] LABS: BASOPHILS # (AUTO) 0.1 K/uL (0.0-8.0); EOSINOPHILS # (AUTO) 0.3 K/uL (0.0-0.7); EOSINOPHILS % (AUTO) 4.1 % (0.0-7.0); HEMATOCRIT 26.4 % (31.2-41.9); HEMOGLOBIN 8.8 g/dL (10.9-14.3); LYMPHOCYTES # (AUTO) 2.3 K/uL (20.0-40.0); LYMPHOCYTES % (AUTO) 27.5 % (20.5-51.5); MEAN CORPUSCULAR HEMOGLOBIN 27.7 uug (24.7-32.8); MEAN CORPUSCULAR HGB CONC 33 g/dL (32.3-35.6); MEAN CORPUSCULAR VOLUME 83.4 fL (75.5-95.3); MONOCYTES # (AUTO) 0.8 K/uL (2.0-10.0); MONOCYTES % (AUTO) 9.9 % (0.0-11.0); NEUTROPHILS # (AUTO) 4.9 K/uL (1.8-8.9); NEUTROPHILS % (AUTO) 57.5 % (38.5-71.5); PLATELET COUNT (AUTO) 311 K/uL (179-408); RED BLOOD CELL COUNT(AUTO) 3.17 MIL/uL (3.63-4.92); WHITE BLOOD COUNT (AUTO) 8.4 K/uL (3.8-11.8)
[2020-08-02] MEDS: LABETALOL HCL 200 MG TABLET PO SCH ×3 (06:05→22:20)
[2020-08-02] MEDS: BACLOFEN 20 MG TABLET PO SCH ×3 (06:05→22:20)
[2020-08-02] MEDS: PREGABALIN 50 MG CAPSULE PO SCH ×3 (06:05→22:20)
[2020-08-02 06:28] LABS: CREATININE 0.9 mg/dL (0.6-1.3); MAGNESIUM 2.3 mg/dL (1.8-2.4); PHOSPHOROUS 3.4 mg/dL (2.5-4.9); POTASSIUM 3.6 mmol/L (3.5-5.1)
[2020-08-02] MEDS: BLOOD SUGAR DIAGNOSTIC 1 EACH STRIP VI SCH ×4 (06:33→20:15)
--- NOTE | 2020-08-02 07:01 | NUR ---
End of Shift: Pt AOx4, vital signs WNL, on 2L NC O2 sating around 96-99%. All due medications given and tolerated well. Pt c/o of pain in her left leg and right shoulder, PRN pain meds given and pain level decreased. Pt has CARLA midline intact and patent TKO via NS 10cc/hr. Left leg cellulitis shows redness and some blisters. Will endorse to the oncoming day shift nurse.
[2020-08-02] MEDS: glipiZIDE 10 MG TABLET PO SCH ×2 (07:03→16:19)
[2020-08-02] MEDS: INSULIN REGULAR, HUMAN 300 UNIT/3 ML VIAL SQ PRN ×4 (07:32→20:16)
[2020-08-02] MEDS: LIDOCAINE 5% PATCH TD SCH (08:15)
[2020-08-02] MEDS: SALMETEROL INH SCH ×2 (08:15→20:14)
[2020-08-02] MEDS: DOCUSATE SODIUM 100 MG CAPSULE PO SCH ×2 (08:15→16:19)
[2020-08-02] MEDS: [UNRECOGNIZED DRUG - OTHER] INH SCH ×2 (08:15→20:14)
[2020-08-02] MEDS: FLUTICASONE INH SCH ×2 (08:15→20:14)
[2020-08-02] MEDS: ASPIRIN 81 MG TAB.CHEW PO SCH (08:15)
[2020-08-02] MEDS: CLOPIDOGREL 75 MG TABLET PO SCH (08:16)
[2020-08-02] MEDS: FUROSEMIDE 40 MG TABLET PO SCH (08:16)
[2020-08-02] MEDS: PAROXETINE HCL 20 MG TABLET PO SCH (08:16)
[2020-08-02] MEDS: LINAGLIPTIN 5 MG TABLET PO SCH (08:16)
[2020-08-02] MEDS: TOLTERODINE LA 2 MG CAP.SR.24H PO SCH (08:16)
[2020-08-02] MEDS: SENNOSIDES 1 TABLET PO SCH (08:16)
[2020-08-02] MEDS: LOSARTAN POTASSIUM 50 MG TABLET PO SCH (08:16)
[2020-08-02] MEDS: CLOTRIMAZOLE 1% CREAM 30 GM TUBE TP SCH ×2 (08:17→16:20)
[2020-08-02] MEDS: TRIAMCINOLONE ACET 0.025% OINT 15 GM TUBE TP SCH (08:17)
[2020-08-02] MEDS ORDERED: FUROSEMIDE 20 MG/2 ML VIAL IV ONE (11:00)
[2020-08-02 11:57] VITALS: BP 154/62
[2020-08-02] MEDS: MIRALAX 17 GM POWD.PACK PO PRN (13:16)
[2020-08-02 16:00] VITALS: BP 152/51
--- NOTE | 2020-08-02 19:30 | NUR ---
Received patient lying in bed. Asleep, arouse to verbal stimuli. Appears weak. No signs or symptoms of pain or SOB noted. Appears calm and comfortable. Midline on Left upper arm intact and patent. Bruise on right melony orbital area visible. Skin intact. Safety measure initiated and call bueno within reached. Continue to monitor.
[2020-08-02] MEDS ORDERED: VANCOMYCIN IV 1,500 MG in IV DEXTROSE 5% 500 ML IV SCH (20:00)
[2020-08-02] MEDS: EZETIMIBE 10 MG TABLET PO SCH (20:13)
[2020-08-02] MEDS: ATORVASTATIN 10 MG TABLET PO SCH (20:14)
[2020-08-02] MEDS: PANTOPRAZOLE SODIUM 40 MG TABLET.DR PO SCH (20:14)
[2020-08-02 20:15] VITALS: BP 199/68
[2020-08-02] MEDS: INSULIN GLARGINE,HUM 300 UNITS/3 ML CARTRIDGE SQ SCH (20:28)
[2020-08-02] MEDS ORDERED: FUROSEMIDE 20 MG/2 ML VIAL IV SCH (21:00)
[2020-08-02] MEDS ORDERED: FUROSEMIDE 40 MG/4 ML VIAL IVP SCH (21:00)
[2020-08-03] MEDS: ALBUTEROL SULFATE 2.5 MG/ 0.5 ML NEBU NEB SCH ×5 (00:30→19:23)
[2020-08-03] MEDS: IPRATROPIUM BROMIDE 0.5 MG/2.5 ML NEBU NEB SCH ×5 (00:30→19:23)
[2020-08-03] MEDS: ACETAMINOPHEN 325 MG TABLET PO PRN (01:36)
[2020-08-03 04:21] VITALS: BP 156/57
[2020-08-03] MEDS: BACLOFEN 20 MG TABLET PO SCH ×3 (05:00→22:27)
[2020-08-03] MEDS: PREGABALIN 50 MG CAPSULE PO SCH ×3 (05:00→22:27)
[2020-08-03] MEDS: LABETALOL HCL 200 MG TABLET PO SCH ×3 (05:01→20:46)
--- NOTE | 2020-08-03 06:03 | NUR ---
AAOx4. In no acute distress. O2 at 2LPM via NC in place. Midline on Left upper arm intact and patent. No adverse reaction noted from IV ABX. Needs attended to and met. Safety measure maintained and call bueno within reached.
[2020-08-03] MEDS: BLOOD SUGAR DIAGNOSTIC 1 EACH STRIP VI SCH ×4 (06:31→20:40)
[2020-08-03] MEDS: glipiZIDE 10 MG TABLET PO SCH ×2 (06:31→16:48)
[2020-08-03] MEDS: HYDROMORPHONE HCL 2 MG TABLET PO PRN ×3 (06:35→20:46)
--- NOTE | 2020-08-03 07:30 | NUR ---
Patient received in bed awake alert and oriented times 4. No sign of distress noted. Pt is 2 L of oxygen. Pt has a bruise on her right melony orbital. Safety precautions implemented. Will continue to monitor.
[2020-08-03] MEDS: MEROPENEM 0.5 G in IV NORMAL SALINE 50 ML IV SCH ×2 (08:23→16:48)
[2020-08-03] MEDS: INSULIN REGULAR, HUMAN 300 UNIT/3 ML VIAL SQ PRN ×4 (08:25→20:48)
[2020-08-03] MEDS: ASPIRIN 81 MG TAB.CHEW PO SCH (08:57)
[2020-08-03] MEDS: LIDOCAINE 5% PATCH TD SCH (08:57)
[2020-08-03] MEDS: TOLTERODINE LA 2 MG CAP.SR.24H PO SCH (08:58)
[2020-08-03] MEDS: DOCUSATE SODIUM 100 MG CAPSULE PO SCH ×2 (08:58→16:48)
[2020-08-03] MEDS: SENNOSIDES 1 TABLET PO SCH (08:58)
[2020-08-03] MEDS: CLOPIDOGREL 75 MG TABLET PO SCH (08:58)
[2020-08-03] MEDS: LINAGLIPTIN 5 MG TABLET PO SCH (08:58)
[2020-08-03] MEDS: PAROXETINE HCL 20 MG TABLET PO SCH (08:58)
[2020-08-03] MEDS: [UNRECOGNIZED DRUG - OTHER] INH SCH ×2 (08:59→20:38)
[2020-08-03] MEDS: FLUTICASONE INH SCH ×2 (08:59→20:38)
[2020-08-03] MEDS: SALMETEROL INH SCH ×2 (08:59→20:38)
[2020-08-03] MEDS: TRIAMCINOLONE ACET 0.025% OINT 15 GM TUBE TP SCH (09:00)
[2020-08-03] MEDS: CLOTRIMAZOLE 1% CREAM 30 GM TUBE TP SCH ×2 (09:00→16:48)
[2020-08-03] MEDS: LOSARTAN POTASSIUM 50 MG TABLET PO SCH (09:10)
[2020-08-03] MEDS: FUROSEMIDE 40 MG TABLET PO SCH ×2 (09:21→16:48)
[2020-08-03 09:54] LABS: CREATININE 0.8 mg/dL (0.6-1.3); POTASSIUM 3.7 mmol/L (3.5-5.1)
[2020-08-03 11:52] VITALS: BP 148/56
[2020-08-03 16:00] VITALS: BP 156/47
--- NOTE | 2020-08-03 18:29 | NUR ---
Patient is resting in chair. No sign of distress noted at this time. Pt is still on oxygen 2L NC. All medications given as ordered. All safety precautions implemented. Will endorse to the night time nanny.
[2020-08-03 20:22] VITALS: BP 180/48
[2020-08-03] MEDS: PANTOPRAZOLE SODIUM 40 MG TABLET.DR PO SCH (20:37)
[2020-08-03] MEDS: EZETIMIBE 10 MG TABLET PO SCH (20:37)
[2020-08-03] MEDS: ATORVASTATIN 10 MG TABLET PO SCH (20:37)
[2020-08-03] MEDS: VANCOMYCIN IV 1,250 MG in IV DEXTROSE 5% 250 ML IV SCH (20:46)
[2020-08-03] MEDS: INSULIN GLARGINE,HUM 300 UNITS/3 ML CARTRIDGE SQ SCH (20:47)
[2020-08-03 22:30] VITALS: BP 145/40
[2020-08-04] MEDS: MEROPENEM 0.5 G in IV NORMAL SALINE 50 ML IV SCH ×3 (00:19→17:30)
[2020-08-04] MEDS: ALBUTEROL SULFATE 2.5 MG/ 0.5 ML NEBU NEB SCH ×4 (00:30→19:28)
[2020-08-04] MEDS: IPRATROPIUM BROMIDE 0.5 MG/2.5 ML NEBU NEB SCH ×4 (00:30→19:28)
[2020-08-04] MEDS: ACETAMINOPHEN 325 MG TABLET PO PRN ×2 (01:54→09:38)
[2020-08-04] MEDS: HYDROMORPHONE HCL 2 MG TABLET PO PRN ×2 (04:19→10:47)
[2020-08-04 04:24] VITALS: BP 159/53
[2020-08-04] MEDS: glipiZIDE 10 MG TABLET PO SCH ×2 (06:21→17:47)
[2020-08-04] MEDS: PREGABALIN 50 MG CAPSULE PO SCH ×2 (06:21→14:53)
[2020-08-04] MEDS: BACLOFEN 20 MG TABLET PO SCH ×2 (06:21→14:53)
[2020-08-04] MEDS: LABETALOL HCL 200 MG TABLET PO SCH ×2 (06:21→14:53)
[2020-08-04] MEDS: BLOOD SUGAR DIAGNOSTIC 1 EACH STRIP VI SCH ×3 (06:30→17:37)
[2020-08-04] MEDS: ASPIRIN 81 MG TAB.CHEW PO SCH (08:51)
[2020-08-04] MEDS: LINAGLIPTIN 5 MG TABLET PO SCH (08:51)
[2020-08-04] MEDS: TOLTERODINE LA 2 MG CAP.SR.24H PO SCH (08:52)
[2020-08-04] MEDS: FUROSEMIDE 40 MG TABLET PO SCH (08:52)
[2020-08-04] MEDS: SENNOSIDES 1 TABLET PO SCH (08:52)
[2020-08-04] MEDS: DOCUSATE SODIUM 100 MG CAPSULE PO SCH ×2 (08:53→17:47)
[2020-08-04] MEDS: PAROXETINE HCL 20 MG TABLET PO SCH (08:53)
[2020-08-04] MEDS: CLOPIDOGREL 75 MG TABLET PO SCH (08:53)
[2020-08-04] MEDS: CLOTRIMAZOLE 1% CREAM 30 GM TUBE TP SCH ×2 (08:54→17:47)
[2020-08-04] MEDS: LIDOCAINE 5% PATCH TD SCH (08:54)
[2020-08-04] MEDS: TRIAMCINOLONE ACET 0.025% OINT 15 GM TUBE TP SCH (08:58)
[2020-08-04] MEDS: LOSARTAN POTASSIUM 50 MG TABLET PO SCH (09:08)
[2020-08-04] MEDS: [UNRECOGNIZED DRUG - OTHER] INH SCH (09:31)
[2020-08-04] MEDS: SALMETEROL INH SCH (09:31)
[2020-08-04] MEDS: FLUTICASONE INH SCH (09:31)
[2020-08-04 10:10] LABS: BASOPHILS # (AUTO) 0.1 K/uL (0.0-8.0); EOSINOPHILS # (AUTO) 0.4 K/uL (0.0-0.7); EOSINOPHILS % (AUTO) 3.8 % (0.0-7.0); HEMATOCRIT 28.2 % (31.2-41.9); HEMOGLOBIN 9.4 g/dL (10.9-14.3); LYMPHOCYTES # (AUTO) 2.5 K/uL (20.0-40.0); LYMPHOCYTES % (AUTO) 25.4 % (20.5-51.5); MEAN CORPUSCULAR HEMOGLOBIN 27.9 uug (24.7-32.8); MEAN CORPUSCULAR HGB CONC 33 g/dL (32.3-35.6); MEAN CORPUSCULAR VOLUME 83.8 fL (75.5-95.3); MONOCYTES # (AUTO) 0.9 K/uL (2.0-10.0); MONOCYTES % (AUTO) 9.1 % (0.0-11.0); NEUTROPHILS # (AUTO) 6.1 K/uL (1.8-8.9); NEUTROPHILS % (AUTO) 60.7 % (38.5-71.5); PLATELET COUNT (AUTO) 340 K/uL (179-408); RED BLOOD CELL COUNT(AUTO) 3.36 MIL/uL (3.63-4.92)
[2020-08-04 10:20] LABS: CREATININE 0.8 mg/dL (0.6-1.3); POTASSIUM 3.8 mmol/L (3.5-5.1)
[2020-08-04] MEDS ORDERED: GUAIFENESIN SUGAR FREE 100 MG/5 ML UDC PO PRN (10:45)
[2020-08-04 12:46] VITALS: BP 147/41
[2020-08-04] MEDS: INSULIN REGULAR, HUMAN 300 UNIT/3 ML VIAL SQ PRN ×3 (13:13→21:17)
[2020-08-04] MEDS ORDERED: hydrALAZINE HCL 25 MG TABLET PO SCH (14:00)
[2020-08-04] MEDS: VANCOMYCIN IV 1,250 MG in IV DEXTROSE 5% 250 ML IV SCH (14:53)
[2020-08-04] MEDS ORDERED: FUROSEMIDE 40 MG/4 ML VIAL IV ONE (15:00)
[2020-08-04 16:21] VITALS: BP 145/50
[2020-08-04] MEDS ORDERED: LIDO30AD10 TD (17:15)
[2020-08-04] MEDS ORDERED: ERTA1VIA IJ (17:15)
[2020-08-04] MEDS ORDERED: FURO40TA5 PO (17:15)
[2020-08-04] MEDS ORDERED: GUAI100S9 PO (17:15)
[2020-08-04] MEDS: MIRALAX 17 GM POWD.PACK PO PRN (18:09)
--- NOTE | 2020-08-04 19:27 | NUR ---
pt is being discharged to [facility], report given to Lowell RN at 7:10pm ambulance ride was arrange for pickup around 8:00PM. all paperwork signed and in chart. discharge and teaching completed.
[2020-08-04 20:00] VITALS: BP 133/50
[2020-08-04] MEDS: ATORVASTATIN 10 MG TABLET PO SCH (21:09)
[2020-08-04] MEDS: INSULIN GLARGINE,HUM 300 UNITS/3 ML CARTRIDGE SQ SCH (21:14)
--- NOTE | 2020-08-04 21:44 | NUR ---
PATIENT ALERT ORIENTED, NO SOB NO CHEST PAIN, PATIENT CHARM FILTER OPERATOR HELPER BY AMBULANCE IN STABLE CONDITION, PATIENT TOOK ALL BELONGINGS, LEFT UPPER MIDLINE INTACT PATENT, DRESSING INTACT. REPORT GIVEN TO AMBULANCE STAFF.
[2020-08-05] MEDS ORDERED: FUROSEMIDE 40 MG TABLET PO SCH (09:00)
== END 2020-08-04 21:46 | DRG 602 ==
LOC: ER 22:27 → MEDSURG3 07-30 03:11
PROVIDERS: ADMIT Internal Medicine; ATTEND Internal Medicine
PROC: 05H533Z Insertion of Infusion Device into Right Subclavian Vein, Percutaneous Approach (ICD-10-PCS; principal; 2020-07-31)
PROC: B546ZZA Ultrasonography of Right Subclavian Vein, Guidance (ICD-10-PCS; 2020-07-31)
DX: L03.116 Cellulitis of left lower limb (principal); I50.43 Acute on chronic combined systolic (congestive) and diastolic (congestive) heart failure; N17.0 Acute kidney failure with tubular necrosis; I69.354 Hemiplegia and hemiparesis following cerebral infarction affecting left non-dominant side; I13.0 Hypertensive heart and chronic kidney disease with heart failure and stage 1 through stage 4 chronic kidney disease, or unspecified chronic kidney disease; Z68.42 Body mass index [BMI] 45.0-49.9, adult; E87.1 Hypo-osmolality and hyponatremia; N39.0 Urinary tract infection, site not specified; E11.22 Type 2 diabetes mellitus with diabetic chronic kidney disease; N18.9 Chronic kidney disease, unspecified; E66.01 Morbid (severe) obesity due to excess calories; Z88.1 Allergy status to other antibiotic agents; Z79.82 Long term (current) use of aspirin; Z79.02 Long term (current) use of antithrombotics/antiplatelets; Z20.822 Contact with and (suspected) exposure to COVID-19; L03.115 Cellulitis of right lower limb; J45.909 Unspecified asthma, uncomplicated; G89.4 Chronic pain syndrome; F39 Unspecified mood [affective] disorder; R53.1 Weakness; I25.10 Atherosclerotic heart disease of native coronary artery without angina pectoris; E78.5 Hyperlipidemia, unspecified; G47.33 Obstructive sleep apnea (adult) (pediatric); S00.11XA Contusion of right eyelid and periocular area, initial encounter; W18.30XA Fall on same level, unspecified, initial encounter; I65.22 Occlusion and stenosis of left carotid artery; Z79.84 Long term (current) use of oral hypoglycemic drugs; Y92.009 Unspecified place in unspecified non-institutional (private) residence as the place of occurrence of the external cause; D64.9 Anemia, unspecified
CPT/HCPCS: 36415; 70030-TC; 70450; 71045; 72125; 73030; 73060; 83735; 84100; 84156; 84300; 85025; 85730; 87086; 93005; 93307; 94640; A4663; A9150; G0378; J1170; J1815; J1940; J2185; J3370; J3490; J3590; J7030; J7050; J7060

== ENCOUNTER 2020-09-15 06:48 | Emergency (ER) | payer BC, OTHER ==
[~2020-09-15] VITALS: Ht 157.5 cm; Wt 109.8 kg
[~2020-09-15 06:48] MED LIST changes: -ALBU2.5V13 IH; +ATOR10TA PO; -ATOR40TA PO; -CLOT15CR5 TP; +DEXT15SY3 PO; -ENOX40DI SQ; +ERTA1VIA IJ; +GUAI100S9 PO; -HYDR-4077 PO; -IPRA0.2S48 NEB; -LOSA50TA39 PO; -MUPI22OI2; -OXYB5TAB16 PO; -PARO10TA86 PO; -PARO37.511 PO; +PARO37.512 PO; +PREG50CA64 PO; -PREG75CA PO; +SENN-261 PO; +TOLT2CAP22 PO; -TRIA80CR2 TP; -VANC1FRO2 IV
--- NOTE | 2020-09-15 06:58 | NUR ---
Pt BIB [facility] d/t mechanical fall from home. Pt c/o left hip and lower back pain and headache PL:01/23. A/O x4, no SOB or labored breathing. Denies KO. Patient states, "I was trying to walk to the kitchen and my walker fell and then I fell with it". Bed in lowest position, educated on safety and fall precautions, verbalized understanding. Dr. Graves at bedside for MSE.
--- NOTE | 2020-09-15 07:03 | NUR ---
Gave report to TOBY Rose.
[2020-09-15] MEDS ORDERED: IV NORMAL SALINE 1000 ML BAG IV ONE (07:15)
[2020-09-15] MEDS ORDERED: HYDROMORPHONE 1 MG/1 ML DISP.SYRIN IV ONE ×2 (07:15→08:45)
[2020-09-15] MEDS ORDERED: ONDANSETRON 4 MG/2 ML VIAL IV ONE (07:15)
[2020-09-15] MEDS ORDERED: PREG50CA PO (07:18)
[2020-09-15] MEDS ORDERED: METF-442 PO (07:18)
[2020-09-15 07:27] LABS: BASOPHILS # (AUTO) 0.1 K/uL (0.0-8.0); BASOPHILS % (AUTO) 1.1 % (0.0-2.0); EOSINOPHILS # (AUTO) 0.2 K/uL (0.0-0.7); EOSINOPHILS % (AUTO) 3.3 % (0.0-7.0); HEMATOCRIT 27.6 % (31.2-41.9); LYMPHOCYTES # (AUTO) 1.8 K/uL (20.0-40.0); LYMPHOCYTES % (AUTO) 28.8 % (20.5-51.5); MEAN CORPUSCULAR HEMOGLOBIN 26.5 uug (24.7-32.8); MEAN CORPUSCULAR HGB CONC 33 g/dL (32.3-35.6); MEAN CORPUSCULAR VOLUME 81.2 fL (75.5-95.3); MONOCYTES # (AUTO) 0.7 K/uL (2.0-10.0); MONOCYTES % (AUTO) 11.6 % (0.0-11.0); NEUTROPHILS # (AUTO) 3.5 K/uL (1.8-8.9); NEUTROPHILS % (AUTO) 55.2 % (38.5-71.5); PLATELET COUNT (AUTO) 355 K/uL (179-408); WHITE BLOOD COUNT (AUTO) 6.3 K/uL (3.8-11.8)
[2020-09-15] MEDS ORDERED: HYDROMORPHONE 2 MG/1 ML DISP.SYRIN ONE (07:30)
[2020-09-15] MEDS ORDERED: ONDANSETRON 4 MG/2 ML VIAL ONE (07:30)
[2020-09-15] MEDS ORDERED: VANCOMYCIN IV 1,000 MG in IV DEXTROSE 5% 250 ML IV ONE (07:30)
[2020-09-15] MEDS ORDERED: VANCOMYCIN IV 200 ML ONE (07:31)
[2020-09-15 07:32] LABS: CREATININE 1.1 mg/dL (0.6-1.3); POTASSIUM 4.8 mmol/L (3.5-5.1)
[2020-09-15 07:38] LABS: BILIRUBIN,DIRECT 0.1 mg/dL (0.0-0.2); BILIRUBIN,TOTAL 0.3 mg/dL (0.2-1.0); TOTAL PROTEIN, SERUM 6.6 g/dL (6.4-8.2)
[2020-09-15] MEDS ORDERED: HYDROMORPHONE 1 MG/1 ML DISP.SYRIN ONE (08:52)
--- NOTE | 2020-09-15 09:37 | NUR ---
pt resting, on monitor, O2 2 litre via nc, satting 98%.
[2020-09-15] MEDS ORDERED: IPRATROPIUM BROMIDE 0.5 MG/2.5 ML NEBU NEB ONE (11:00)
[2020-09-15] MEDS ORDERED: ALBUTEROL SULFATE 2.5 MG/3 ML NEBU NEB ONE (11:00)
[2020-09-15] MEDS ORDERED: ALBUTEROL SULFATE 2.5 MG/3 ML NEBU ONE (11:09)
[2020-09-15] MEDS ORDERED: IPRATROPIUM BROMIDE 0.5 MG/2.5 ML NEBU ONE (11:09)
--- NOTE | 2020-09-15 11:33 | NUR ---
pt will be transfered to critical [facility] hospital based on [facility] decision.
--- NOTE | 2020-09-15 11:37 | NUR ---
zeferino from [facility] said that based on Dr. Venegas decision, pt will be transfered to [facility]
--- NOTE | 2020-09-15 13:06 | NUR ---
pt requesting 4 units of regular insulin md godfrey notified.
--- NOTE | 2020-09-15 13:09 | NUR ---
pt eating diabetic lunch tray with good apetite.
[2020-09-15] MEDS ORDERED: INSULIN REGULAR, HUMAN 300 UNIT/3 ML VIAL SQ ONE (13:30)
[2020-09-15] MEDS ORDERED: INSULIN REGULAR, HUMAN 300 UNIT/3 ML VIAL ONE (13:36)
--- NOTE | 2020-09-15 14:17 | NUR ---
[facility], in [facility] condition.
--- NOTE | 2020-09-15 14:28 | NUR ---
neil diaz at [phone], gave report to lewis.
== END 2020-09-15 14:31 ==
LOC: ER 06:51
DX: L03.116 Cellulitis of left lower limb (principal); E86.0 Dehydration; R79.89 Other specified abnormal findings of blood chemistry; Z20.822 Contact with and (suspected) exposure to COVID-19; D64.9 Anemia, unspecified; E11.65 Type 2 diabetes mellitus with hyperglycemia; Z91.81 History of falling; I69.354 Hemiplegia and hemiparesis following cerebral infarction affecting left non-dominant side; N39.0 Urinary tract infection, site not specified; E66.01 Morbid (severe) obesity due to excess calories; Z68.41 Body mass index [BMI] 40.0-44.9, adult; I11.9 Hypertensive heart disease without heart failure; G89.29 Other chronic pain; M54.5 Low back pain; E78.5 Hyperlipidemia, unspecified; Z88.1 Allergy status to other antibiotic agents; Z79.84 Long term (current) use of oral hypoglycemic drugs; Z79.899 Other long term (current) drug therapy
CPT/HCPCS: 36415; 71045; 72192; 73030; 80048; 80076; 82962; 83605; 83690; 84484; 85025; 85730; 87040; 87426; 93005; 93970; 94640; 96365; 96366; 96372; 96375; 96376; 99285; J1170 ×2; J1815; J2405; J3370; 70030-TC; A4663; J3590

== ENCOUNTER 2022-02-11 14:09 | Inpatient (IN) | payer OTHER ==
[~2022-02-11] VITALS: Ht 167.6 cm; Wt 113.4 kg
[~2022-02-11 14:09] MED LIST changes: -ALBU2.5V13 NEB; -ERTA1VIA IJ; -IPRA0.2S6 NEB; +METF-442 PO; +PREG50CA PO
--- NOTE | 2022-02-11 14:20 | NUR ---
ERMD AT BEDSIDE FOR MSE.
--- NOTE | 2022-02-11 14:45 | NUR ---
NOTIFIED CT REGARDING PT BEING READY FOR PICKUP. NOTIFIED RT THAT MD IS ORDERING ABG'S.
[2022-02-11 14:56] LABS: HEMATOCRIT 26.6 % (31.2-41.9); MEAN CORPUSCULAR HEMOGLOBIN 27.7 uug (24.7-32.8); MEAN CORPUSCULAR VOLUME 84.5 fL (75.5-95.3); PLATELET COUNT (AUTO) 251 K/uL (179-408)
[2022-02-11] MEDS ORDERED: NALOXONE HCL 0.4 MG/ML AMPUL IV ONE ×2 (15:00→17:30)
[2022-02-11 15:03] LABS: CARBON DIOXIDE 27 mmol/L (21-32); CHLORIDE 104 mmol/L (98-107); CREATININE 1.3 mg/dL (0.6-1.3); GLUCOSE 149 mg/dL (74-106); POTASSIUM 3.5 mmol/L (3.5-5.1); UREA NITROGEN, BLOOD 20 mg/dL (7-18)
[2022-02-11] MEDS ORDERED: NALOXONE HCL 0.4 MG/ML AMPUL ONE ×2 (15:07→17:23)
[2022-02-11] MEDS ORDERED: ALBU1.25 NEB (15:09)
[2022-02-11] MEDS ORDERED: [UNRECOGNIZED DRUG - OTHER] (15:09)
[2022-02-11] MEDS ORDERED: INSU100V42 SQ (15:09)
[2022-02-11] MEDS ORDERED: TOLT2TAB2 PO (15:09)
[2022-02-11] MEDS ORDERED: TIOT18CA3 INH (15:09)
[2022-02-11] MEDS ORDERED: INSU100V7 SQ (15:09)
[2022-02-11] MEDS ORDERED: NYST5ORA PO (15:09)
[2022-02-11] MEDS ORDERED: POLY17PO4 PO (15:09)
[2022-02-11] MEDS ORDERED: DILT360C28 PO (15:09)
[2022-02-11] MEDS ORDERED: PANT40TA49 PO (15:09)
[2022-02-11] MEDS ORDERED: MENT71OI TP (15:09)
[2022-02-11] MEDS ORDERED: FLUT1BLS IH (15:09)
[2022-02-11] MEDS ORDERED: AMLO5TAB4 PO (15:09)
[2022-02-11] MEDS ORDERED: OLME20TA13 PO (15:09)
[2022-02-11] MEDS ORDERED: PARO25TA16 PO (15:09)
[2022-02-11] MEDS ORDERED: ALPR0.255 PO (15:09)
[2022-02-11] MEDS ORDERED: IPRA0.2S48 NEB (15:09)
[2022-02-11] MEDS ORDERED: OXYC-133 PO (15:09)
[2022-02-11] MEDS ORDERED: HYDR100T27 PO (15:09)
[2022-02-11] MEDS ORDERED: SENN-261 PO (15:09)
[2022-02-11] MEDS ORDERED: ACET-2154 PO (15:09)
[2022-02-11] MEDS ORDERED: FURO-152 PO (15:09)
[2022-02-11] MEDS ORDERED: FERR325T28 PO (15:09)
[2022-02-11] MEDS ORDERED: SEMA3TAB PO (15:09)
[2022-02-11] MEDS ORDERED: PREG75CA PO (15:09)
[2022-02-11] MEDS ORDERED: CLON0.1T PO (15:09)
[2022-02-11] MEDS ORDERED: LABE100T5 PO (15:09)
[2022-02-11 15:12] LABS: ALANINE AMINOTRANSFERASE 51 U/L (14-59); ALKALINE PHOSPHATASE 72 U/L (50-136); ASPARTATE AMINOTRANSFERASE 16 U/L (15-37); BILIRUBIN,DIRECT 0.1 mg/dL (0.0-0.2); BILIRUBIN,TOTAL 0.6 mg/dL (0.2-1.0)
[2022-02-11 15:14] LABS: THYROID STIMULATING HORMONE 0.648 mIU/mL (0.358-3.740)
[2022-02-11 15:14] LABS: ABG BASE EXCESS -0.3 mmol/L; ABG HCO3 25.4 mmol/L; ABG PCO2 46.6 mmHg (35.0-45.0); ABG PH 7.355 (7.350-7.450); ABG PO2 114.3 mmHg (75.0-100.0); ABG SITE RIGHT RADIAL; ABG TOTAL HEMOGLOBIN 9.1 G/dL (12.0-16.0); MetHb 0.1 % (0.0-1.5); VENT MODE Nasal Cannula
--- NOTE | 2022-02-11 15:32 | NUR ---
CALLED CT AGAIN RE: PT'S CT ORDERS.
--- NOTE | 2022-02-11 15:34 | NUR ---
PT BEING PICKED UP BY CT NOW.
--- NOTE | 2022-02-11 15:38 | NUR ---
respiration alarm sounded, checked on patient and counted her respiratory rate for 1 minute, RR 8. attempted sternal rub, unable to wake patient. RT was in ER and was asked to see patient, Laith LUIS attempted sternal rub once more and patient woke up and was breathing at a normal rate of 16. RT assessed patient, who is now awake. RT to accompany patient to CT.
--- NOTE | 2022-02-11 16:30 | NUR ---
IN & OUT CATH DONE, 700 CC URINE OUTPUT. SAMPLE SENT TO LAB.
[2022-02-11 16:57] LABS: *BILIRUBIN,URIN NEGATIVE (NEGATIVE); *BLOOD, URINE NEGATIVE (NEGATIVE); *CLARITY,URINE CLEAR (CLEAR); *COLOR,URINE YELLOW (YELLOW); *KETONES,URINE NEGATIVE (NEGATIVE); *UROBILINOGEN,URINE 0.2 E.U./dl (NORMAL); LEUKOCYTE ESTERASE ,URINE NEGATIVE (NEGATIVE); NITRITE, URINE NEGATIVE (NEGATIVE); PH,URINE 5.5 (5.0-8.0); UGLUCOSE NEGATIVE (NEGATIVE)
--- NOTE | 2022-02-11 17:07 | NUR ---
PT POSSIBLE ADMISSION, PENDING INSURANCE AUTH.
[2022-02-11 17:39] LABS: ABG BASE EXCESS -1.7 mmol/L; ABG HCO3 23.1 mmol/L; ABG PCO2 39.4 mmHg (35.0-45.0); ABG PH 7.386 (7.350-7.450); ABG PO2 134.5 mmHg (75.0-100.0); ABG SITE LEFT RADIAL; ABG TOTAL HEMOGLOBIN 9.2 G/dL (12.0-16.0); MetHb 0.3 % (0.0-1.5); O2Hb 98.5 % (94.0-97.0); VENT MODE Nasal Cannula
--- NOTE | 2022-02-11 17:55 | NUR ---
PT RECEIVED OK FROM INSURANCE TO STAY HERE. DR ROSE HAS SPOKEN WITH GIAN SPEAR REGARDING PT. PT ADMITTED TO TELE/UNDER DR GIAN SPEAR/ALTERED MENTAL STATUS 2ND ABG OBTAINED, NORMAL EXCEPT FOR O2 BEING 134. O2 DISCONTINUED. MD ORDERED BIPAP INSTEAD. RT AT BEDSIDE, BIPAP SETTINGS: R16, 18/5, 24% FIO2 PT NOTED TO HAVE SLEEP APNEA FOR 15 SECONDS.
[2022-02-11] MEDS ORDERED: FUROSEMIDE 40 MG/4 ML VIAL IV ONE (18:00)
--- NOTE | 2022-02-11 18:02 | NUR ---
PT TO GO TO ROOM 316/ REPORT TO BE GIVEN AFTER SHIFT.
[2022-02-11] MEDS ORDERED: FUROSEMIDE 40 MG/4 ML VIAL ONE (18:03)
--- NOTE | 2022-02-11 20:00 | NUR ---
Endorsed to TOBY Ge M/S nurse, transferred pt. to room 316.
[2022-02-11 20:30] VITALS: BP 188/68
[2022-02-12] MEDS ORDERED: ACETAMINOPHEN 325 MG TABLET PO PRN (00:15)
[2022-02-12] MEDS ORDERED: REMEDY ESSENTIAL ZINC PASTE 113 GM TP PRN (00:15)
[2022-02-12] MEDS ORDERED: ONDANSETRON 4 MG/2 ML VIAL IV PRN (00:15)
[2022-02-12] MEDS ORDERED: MAGNESIUM HYDROXIDE 30 ML LIQUID UDC PO PRN (00:15)
[2022-02-12 00:32] VITALS: BP 195/72
--- NOTE | 2022-02-12 00:37 | NUR ---
Pt refused BIPAP at this time. Placed on 2L NC. Nurse aware.
[2022-02-12] MEDS: ZOLPIDEM 5 MG TABLET PO PRN ×2 (00:52→23:28)
[2022-02-12] MEDS: CEFTRIAXONE 1 G in IV DEXTROSE 5% 50 ML IV SCH ×2 (01:13→02:23)
[2022-02-12] MEDS ORDERED: CEFTRIAXONE 1 G VIAL ONE (02:08)
[2022-02-12 04:00] VITALS: BP 186/63
--- NOTE | 2022-02-12 05:30 | NUR ---
shift note: pt is alert and oriented x2 with periods of confusion pt came from ER has iv 20g left forearm. infusing antibiotic no signs of adverse reaction noted from iv. pt is obese with very large abd. Pt has cellulitis of rt leg, red rash rt and lt inguinal area, stage 3 on rt buttock. Pt was given ambien for sleep but denies pain. Photos were taken of wounds and put in the chart. Pt has 02 2L nasal canula tolerating well. Will continue to monitor for falls and safety.
--- NOTE | 2022-02-12 08:00 | NUR ---
AWAKE ALERT AND ORIENTED X3 DENIES PAIN OR SOB ON 2L NC SATURATING AT 100%. CONTINUE PLAN OF CARE ORDERED
[2022-02-12] MEDS: DOXYCYCLINE HYCLATE IV 100 MG in IV DEXTROSE 5% 100 ML IV SCH ×2 (08:15→20:45)
[2022-02-12] MEDS: CLOTRIMAZOLE 1% CREAM 30 GM TUBE TOP SCH ×2 (08:16→17:01)
--- NOTE | 2022-02-12 11:00 | NUR ---
COMPLETE BED BATH AND WOUND TX GIVEN. UNDERNEATH BREAST, PERIANAL AREAS AND ABDOMINAL FOLDS REDNESS MEDICATED WITH LOTRIMIN CREAM. OPEN WOUND RIGHT BUTTOCKS REMAINS RED AND DRAINING SEROUS DRAINAGE. WOUND COVERED WITH MEPILEX
[2022-02-12] MEDS ORDERED: DOCU100C36 PO (11:44)
[2022-02-12] MEDS ORDERED: FLUT1BLS PO (11:44)
[2022-02-12] MEDS ORDERED: IPRA0.2S6 NEB (11:48)
[2022-02-12] MEDS ORDERED: FURO20TA4 PO (11:48)
[2022-02-12] MEDS ORDERED: PARO40TA4 PO (11:57)
[2022-02-12] MEDS ORDERED: TIOT18CA3 IH (11:57)
[2022-02-12] MEDS ORDERED: INSULIN ASPART 1000 UNITS/10 ML VIAL(NOVOLOG) SQ PRN (14:15)
[2022-02-12] MEDS ORDERED: hydrALAZINE HCL 25 MG TABLET PO PRN (14:15)
[2022-02-12] MEDS ORDERED: ALPRAZOLAM 0.25 MG TABLET PO PRN (14:15)
[2022-02-12] MEDS ORDERED: DEXTROSE 50% 50 ML DISP.SYRIN IV PRN (14:30)
[2022-02-12] MEDS: BACLOFEN 20 MG TABLET PO SCH ×2 (15:00→21:08)
--- NOTE | 2022-02-12 15:22 | NUR ---
SEEN BY DR SPEAR MADE AWARE OF HIGH BP WITH ORDERS. CONTINUE WITH TELE MONITORING. SR ON MONITOR
[2022-02-12] MEDS: OXYCODONE/APAP 5-325 MG TABLET PO PRN ×2 (15:44→23:29)
[2022-02-12] MEDS: AMLODIPINE 10 MG TABLET PO SCH (15:44)
[2022-02-12] MEDS: LABETALOL HCL 100 MG TABLET PO SCH ×2 (15:45→21:07)
[2022-02-12 16:03] VITALS: BP 179/56
[2022-02-12] MEDS: BLOOD SUGAR DIAGNOSTIC 1 EACH STRIP VI SCH ×2 (17:00→20:52)
[2022-02-12] MEDS: ARGININE/GLUTAMINE/CALCIUM BMB 1 EACH POWD.PACK PO SCH (17:00)
[2022-02-12] MEDS: INSULIN REGULAR, HUMAN 300 UNIT/3 ML VIAL SQ PRN (17:01)
[2022-02-12] MEDS ORDERED: diphenhydrAMINE 50 MG/1 ML VIAL IV PRN (18:45)
[2022-02-12] MEDS: IPRATROPIUM BROMIDE 0.5 MG/2.5 ML NEBU NEB SCH (19:47)
[2022-02-12] MEDS: ALBUTEROL SULFATE 1.25 MG/3 ML NEBU NEB SCH (19:47)
[2022-02-12 20:00] VITALS: BP 126/45
[2022-02-12] MEDS ORDERED: ATORVASTATIN 10 MG TABLET PO SCH (21:00)
[2022-02-12] MEDS ORDERED: PAROXETINE HCL 20 MG TABLET PO SCH (21:00)
[2022-02-12] MEDS ORDERED: CEFTRIAXONE 2 G in IV DEXTROSE 5% 100 ML IV SCH (22:00)
[2022-02-13] VITALS: BP 125/55
[2022-02-13] MEDS: ALBUTEROL SULFATE 1.25 MG/3 ML NEBU NEB SCH ×4 (01:06→19:07)
[2022-02-13] MEDS: IPRATROPIUM BROMIDE 0.5 MG/2.5 ML NEBU NEB SCH ×4 (01:06→19:07)
--- NOTE | 2022-02-13 02:02 | NUR ---
Patient is currently on 3L NC. Bipap orders refused early on in shift. Offered again at this time but patient is still refusing. Risks and benefits explained X3. Patient states she has not used Bipap in a few days and does not need it. Vitals within normal range, will continue to monitor. BiPAP on standby at bedside. HHN treatments administered and tolerated well without adverse reactions noted.
[2022-02-13 04:00] VITALS: BP 120/50
[2022-02-13] MEDS: LABETALOL HCL 100 MG TABLET PO SCH ×2 (05:37→14:58)
[2022-02-13] MEDS: OXYCODONE/APAP 5-325 MG TABLET PO PRN (05:38)
[2022-02-13] MEDS: BACLOFEN 20 MG TABLET PO SCH ×2 (06:00→14:57)
[2022-02-13] MEDS: BLOOD SUGAR DIAGNOSTIC 1 EACH STRIP VI SCH ×3 (06:15→16:36)
[2022-02-13 06:46] LABS: HEMATOCRIT 24.4 % (31.2-41.9); MEAN CORPUSCULAR HEMOGLOBIN 28.3 uug (24.7-32.8); MEAN CORPUSCULAR VOLUME 84.8 fL (75.5-95.3); PLATELET COUNT (AUTO) 238 K/uL (179-408)
[2022-02-13 06:55] LABS: BILIRUBIN,TOTAL 0.5 mg/dL (0.2-1.0); CREATININE 0.8 mg/dL (0.6-1.3); POTASSIUM 3.4 mmol/L (3.5-5.1); TOTAL PROTEIN, SERUM 5.7 g/dL (6.4-8.2)
[2022-02-13 07:32] LABS: THYROID STIMULATING HORMONE 3.368 mIU/mL (0.358-3.740)
--- NOTE | 2022-02-13 07:46 | NUR ---
RESTING COMFORTABLY IN BED WITH 02 AT 2L NC SATURATING 98%, NO SS OF DISTRESS. SR ON MONITOR
[2022-02-13] MEDS: INSULIN REGULAR, HUMAN 300 UNIT/3 ML VIAL SQ PRN ×3 (07:59→16:35)
[2022-02-13] MEDS: DOXYCYCLINE HYCLATE IV 100 MG in IV DEXTROSE 5% 100 ML IV SCH (08:21)
[2022-02-13] MEDS: AMLODIPINE 10 MG TABLET PO SCH (08:22)
[2022-02-13] MEDS: ARGININE/GLUTAMINE/CALCIUM BMB 1 EACH POWD.PACK PO SCH ×2 (08:23→16:35)
[2022-02-13] MEDS: CLOTRIMAZOLE 1% CREAM 30 GM TUBE TOP SCH ×2 (08:24→16:36)
[2022-02-13] MEDS ORDERED: TOLTERODINE 2 MG TABLET PO SCH (09:00)
[2022-02-13] MEDS ORDERED: FUROSEMIDE 20 MG TABLET PO SCH (09:00)
[2022-02-13] MEDS ORDERED: FLUTICASONE/VILANTEROL 1 EACH BLST.W.DEV INH SCH (09:00)
[2022-02-13] MEDS ORDERED: LOSARTAN POTASSIUM 50 MG TABLET PO SCH (09:00)
[2022-02-13] MEDS ORDERED: CLOPIDOGREL 75 MG TABLET PO SCH (09:00)
[2022-02-13] MEDS ORDERED: PREGABALIN 25 MG CAPSULE PO SCH (09:00)
[2022-02-13] MEDS ORDERED: POTASSIUM CHLORIDE 20 MEQ POWDER PACKET PO ONE (09:30)
--- NOTE | 2022-02-13 11:00 | NUR ---
HOSPITALIST IN AND NOTED LOW K AND REPLACED. SEEN BY PHYSICAL THERAPIST FOR EVAL SEE NOTES
[2022-02-13 12:00] VITALS: BP 180/73
--- NOTE | 2022-02-13 15:30 | NUR ---
PATIENT SEEN BY HOSPITALIST PLAN DISCHARGE BACK TO SNF, EQUIPMENT INSTALLER AWARE
[2022-02-13 16:00] VITALS: BP 127/52
--- NOTE | 2022-02-13 17:00 | NUR ---
OK TO DISCHARGE PER GIAN SPEAR. MEDICATION RECONCILIATION AND DISCHARGE SUMMARY TO FOLLOW. REPORT GIVEN TO [facility] STAFF. NOTE: PICTURE TAKING OF WOUND NOT DONE PATIENT REFUSED.
--- NOTE | 2022-02-13 19:07 | NUR ---
Pt asked for breathing tx. After medication was scanned, open and put in HHN, pt refused breathing tx and she want to leave hospital with transport team. TOBY Mustafa notified.
[2022-02-14] MEDS ORDERED: INSULIN GLARGINE,HUM 300 UNITS/3 ML CARTRIDGE SQ SCH (09:00)
== END 2022-02-13 19:25 | DRG 917 ==
LOC: ER 14:11 → TELE3 20:43
PROVIDERS: ADMIT Nurse Practitioner Acute Care; ATTEND Nurse Practitioner Acute Care
PROC: 5A09357 Assistance with Respiratory Ventilation, Less than 24 Consecutive Hours, Continuous Positive Airway Pressure (ICD-10-PCS; principal; 2022-02-11)
PROC: 05H533Z Insertion of Infusion Device into Right Subclavian Vein, Percutaneous Approach (ICD-10-PCS; 2022-02-13)
PROC: B546ZZA Ultrasonography of Right Subclavian Vein, Guidance (ICD-10-PCS; 2022-02-13)
DX: T40.2X1A Poisoning by other opioids, accidental (unintentional), initial encounter (principal); G92.8 Other toxic encephalopathy; I50.23 Acute on chronic systolic (congestive) heart failure; J96.02 Acute respiratory failure with hypercapnia; E66.2 Morbid (severe) obesity with alveolar hypoventilation; Z68.41 Body mass index [BMI] 40.0-44.9, adult; I69.354 Hemiplegia and hemiparesis following cerebral infarction affecting left non-dominant side; L03.116 Cellulitis of left lower limb; T42.4X1A Poisoning by benzodiazepines, accidental (unintentional), initial encounter; I11.0 Hypertensive heart disease with heart failure; E11.9 Type 2 diabetes mellitus without complications; E78.5 Hyperlipidemia, unspecified; D72.829 Elevated white blood cell count, unspecified; E87.6 Hypokalemia; F17.210 Nicotine dependence, cigarettes, uncomplicated; Z83.3 Family history of diabetes mellitus; I25.10 Atherosclerotic heart disease of native coronary artery without angina pectoris; I25.2 Old myocardial infarction; J44.9 Chronic obstructive pulmonary disease, unspecified; Z79.84 Long term (current) use of oral hypoglycemic drugs; D63.8 Anemia in other chronic diseases classified elsewhere; D50.9 Iron deficiency anemia, unspecified; Z79.4 Long term (current) use of insulin; Z79.82 Long term (current) use of aspirin; Y92.89 Other specified places as the place of occurrence of the external cause
CPT/HCPCS: 36415; 36600; 70450; 71045; 83605; 84443; 84484; 85025; 85730; 87040; 87086; 93005; 94640; 94660; A4663; A6209; A6213; C1758; G0378; J0696; J1200; J1815; J1940; J2310; J3490; J3590; J7040; J7060